=== PATIENT | male | born 1965 | race Caucasian/White ===

== ENCOUNTER → 2016-11-10 | Outpatient (CLI) | payer BC ==
--- NOTE | 2016-11-10 11:19 | US ---
EXAMINATION TYPE: US abdomen complete DATE OF EXAM: 11/10/2016 10:59 AM COMPARISON: NONE CLINICAL HISTORY: 51-year-old male RUQ Pain R10.11. TECHNIQUE: Multiple sonographic images of the abdomen were obtained. FINDINGS: Liver Length: 13.1 cm Gallbladder Wall: 0.2 cm CBD: 0.5 cm Spleen: 12.2 cm Right Kidney: 11.1 x 4.9 x 4.7 cm Left Kidney: 11.8 x 5.5 x 5.5 cm Pancreas: Suboptimal visualization of the pancreatic head and tail secondary to shadowing from bowel gas. The remainder of the pancreas is also limited and detailed assessment due to large body habitus. Liver: Normal size with homogeneous echotexture and no focal lesion. Gallbladder: No stones seen Evidence for sonographic Bustamante's sign: yes CBD: Within normal limits. Spleen: Within normal limits. Right Kidney: No hydronephrosis. There is a small midpole cyst measuring 1.4 mm. Left Kidney: No hydronephrosis. Upper IVC: Not well seen. Abd Aorta: Within normal limits IMPRESSION: Positive sonographic Bustamante's sign though without evidence for cholelithiasis or acute cholecystitis. Findings probably reflect referred pain. If further imaging evaluation of the gallbladder is desired , HIDA scan with ejection fraction can be considered.
[2016-11-10 11:29] LABS: Appearance,Urine Clear (Clear); Bilirubin,Urine 1+ (Negative); Glucose,Urine (UA) Negative (Negative); Ketones,Urine Trace (Negative); Leukocyte Esterase,Urine Trace (Negative); Mucus,Urine Occasional /hpf; Nitrite,Urine Negative (Negative); Particle Count 3400; Protein,Urine 1+ (Negative); Specific Gravity,Urine 1.021 (1.001-1.035); UA Billing (MACRO vs. MICRO) MICRO; WBC,Urine 1 /hpf (0-5)
[2016-11-10 11:36] LABS: Basophils # (A) 0.1 k/uL (0-0.2); Basophils % (A) 2 %; CH 30.1; CHCM 34.4; Eosinophils # (A) 0.3 k/uL (0-0.7); Eosinophils % (A) 3 %; HCT 54.8 % (39.0-53.0); HDW 2.73; HGB 18.2 gm/dL (13.0-17.5); Luc # (Auto) 0.15; Luc % (Auto) 2; Lymphocytes # (A) 1.8 k/uL (1.0-4.8); Lymphocytes % (A) 24 %; MCH 29.2 pg (25.0-35.0); MCHC 33.3 g/dL (31.0-37.0); MCV 87.9 fL (80.0-100.0); Monocytes # (A) 0.6 k/uL (0-1.0); Monocytes % (A) 7 %; Neutrophils # (A) 4.7 k/uL (1.3-7.7); Neutrophils % (A) 62 %; RBC 6.23 m/uL (4.30-5.90); RDW 13.7 % (11.5-15.5); WBC 7.6 k/uL (3.8-10.6); WBC (Perox) 7.64
[2016-11-10 11:48] LABS: ALT 42 U/L (21-72); AST 23 U/L (17-59); Alkaline Phosphatase 56 U/L (38-126); Amylase 47 U/L (30-110); Anion Gap 13 mmol/L; Blood Urea Nitrogen 11 mg/dL (9-20); Calcium 9.8 mg/dL (8.4-10.2); Carbon Dioxide 27 mmol/L (22-30); Chloride 103 mmol/L (98-107); Glucose 92 mg/dL (74-99); Non-African American GFR(MDRD) >60 (>60 ml/min/1.73 sqM); Potassium 4.2 mmol/L (3.5-5.1); Sodium 143 mmol/L (137-145); Total Bilirubin 1.3 mg/dL (0.2-1.3); Total Protein 7.1 g/dL (6.3-8.2)
== END | disposition home or self-care (01) ==
LOC: RADUSWWP 10:34
PROVIDERS: ATTEND Family Medicine
DX: R10.11 Right upper quadrant pain (principal)
CPT/HCPCS: 36415; 76700; 80053; 81001; 82150; 83690; 85025

== ENCOUNTER → 2016-11-20 | Outpatient (CLI) | payer BC ==
--- NOTE | 2016-11-20 21:57 | NM ---
EXAMINATION TYPE: NM hepatobiliary w EF DATE OF EXAM: 11/20/2016 5:10 PM COMPARISON: Correlation ultrasound 11/10/2016 HISTORY: 51 year-old male right upper quadrant pain TECHNIQUE: After the intravenous administration of 5.2 mCi Tc 99m Mebrofenin hepatobiliary scintigrap hy is performed. Immediate images post injection. FINDINGS: There is satisfactory initial accumulation of tracer by the liver. The gallbladder is visualized wit hin 12 minutes. The small bowel activity is noted within 32 minutes. At one hour 8 ounces of oral e nsure plus is given to mimic CCK and gallbladder ejection fraction is calculated at 40 %, in the norm al range. Therefore there is no scintigraphic evidence of cholecystitis, common bile duct obstructio n, or biliary dyskinesia. IMPRESSION: Exam is within normal limits.
== END | disposition home or self-care (01) ==
LOC: RADNMMAIN 14:42
PROVIDERS: ATTEND Family Medicine
DX: R10.11 Right upper quadrant pain (principal)
CPT/HCPCS: 78226; A9537

== ENCOUNTER → 2016-12-25 | Outpatient (CLI) | payer BC ==
--- NOTE | 2016-12-25 13:56 | US ---
EXAMINATION TYPE: US scrotum with doppler. Grayscale and color Doppler Duplex imaging performed of jamel vides scrotum. DATE OF EXAM: 12/25/2016 12:21 PM COMPARISON: NONE CLINICAL HISTORY: Swelling N50.89. Right sided swelling x 4 days EXAM MEASUREMENTS: TESTICLES: Right Testicle: 3.3 x 2.2 x 1.7 cm Left Testicle: 2.7 x 2.1 x 1.8 cm EPIDIDYMIS HEAD: Right Epididymis: 1.0 cm, 0.4cm cyst seen Left Epididymis: 0.7 cm Doppler performed to assess for testicular vascularity; good bilateral color flow and waveforms are s een. There is no evidence of testicular torsion. Presence of hydroceles: no Presence of varicoceles: no TECHNOLOGIST IMPRESSION: Right epididymal cyst seen, otherwise appears wnl stat order was for appointment to be scheduled today, office stated it was not a hold and call. Vascular waveforms are present bilaterally within the testes. Testicular echotexture is homogenous an d symmetric. IMPRESSION: Testicular torsion is not evident. No intratesticular mass. Small epididymal cyst on the right.
== END | disposition home or self-care (01) ==
LOC: RADUSWWP 11:56
PROVIDERS: ATTEND Family Medicine
DX: N50.3 Cyst of epididymis (principal)
CPT/HCPCS: 76870; 93975

== ENCOUNTER → 2017-02-09 | Outpatient (CLI) | payer BC ==
--- NOTE | 2017-02-09 08:29 | MR ---
EXAMINATION TYPE: MR cervical spine wo con DATE OF EXAM: 02/09/2017 8:07 AM COMPARISON: NONE HISTORY: radiculopathy csp Multiplanar MultiSpin echo imaging of the cervical spine was performed. Comparison: none C2-C3: No evidence for degenerative disc disease. No disc bulge/herniation or protrusion. No Canal stenosis. Foramina are patent bilaterally. C3-C4: No evidence for degenerative disc disease. No disc bulge/herniation or protrusion. No Canal stenosis. Foramina are patent bilaterally. C4-C5: No evidence for degenerative disc disease. No disc bulge/herniation or protrusion. No Canal stenosis. Foramina are patent bilaterally. C5-C6: No evidence for degenerative disc disease. No disc bulge/herniation or protrusion. No Canal stenosis. Foramina are patent bilaterally. C6-C7: There is evidence of mild disc desiccation. Right paracentral small disc herniation is again n oted and is essentially unchanged. Previously noted ventral CORD contact has improved. Mild persisten t right foraminal encroachment. No evidence for central stenosis. C7-T1: No evidence for degenerative disc disease. No disc bulge/herniation or protrusion. No Canal stenosis. Foramina are patent bilaterally. Cervical segments are intact. There is normal alignment. Cervical spinal cord is of normal signal. Craniovertebral junction relationships are within normal limits. IMPRESSION: 1. Right paracentral small disc herniation is again noted and is essentially unchanged. Previously no debra ventral CORD contact has improved. Mild persistent right foraminal encroachment.
== END ==
LOC: RADMRIMAIN 07:38
PROVIDERS: ATTEND Internal Medicine Rheumatology
DX: M50.21 Other cervical disc displacement, high cervical region (principal)
CPT/HCPCS: 72141

== ENCOUNTER → 2017-03-05 | Outpatient (CLI) | payer BC ==
[2017-03-05 10:47] LABS: Basophils # (A) 0.1 k/uL (0-0.2); Basophils % (A) 1 %; CH 30.2; Eosinophils # (A) 0.2 k/uL (0-0.7); Eosinophils % (A) 3 %; HCT 54.4 % (39.0-53.0); HDW 2.66; HGB 18.1 gm/dL (13.0-17.5); Luc # (Auto) 0.12; Luc % (Auto) 2; Lymphocytes # (A) 1.9 k/uL (1.0-4.8); Lymphocytes % (A) 29 %; MCH 29.6 pg (25.0-35.0); MCHC 33.2 g/dL (31.0-37.0); Mean Platelet Volume 6.7; Monocytes # (A) 0.5 k/uL (0-1.0); Monocytes % (A) 7 %; Neutrophils # (A) 3.7 k/uL (1.3-7.7); Neutrophils % (A) 57 %; RBC 6.11 m/uL (4.30-5.90); RDW 13.4 % (11.5-15.5); WBC 6.5 k/uL (3.8-10.6); WBC (Perox) 6.75
[2017-03-05 12:19] LABS: ALT 31 U/L (21-72); AST 24 U/L (17-59); Alkaline Phosphatase 59 U/L (38-126); Anion Gap 9 mmol/L; Blood Urea Nitrogen 14 mg/dL (9-20); Calcium 9.5 mg/dL (8.4-10.2); Carbon Dioxide 27 mmol/L (22-30); Chloride 105 mmol/L (98-107); Cholesterol 163 mg/dL (<200); Glucose 89 mg/dL (74-99); HDL Cholesterol 38 mg/dL (40-60); Non-African American GFR(MDRD) 58 (>60 ml/min/1.73 sqM); Potassium 3.9 mmol/L (3.5-5.1); Sodium 141 mmol/L (137-145); Total Protein 6.9 g/dL (6.3-8.2); Triglycerides 102 mg/dL (<150)
[2017-03-05 12:49] LABS: Prostate Specific Antigen 0.71 ng/mL (0.00-4.00)
== END | disposition home or self-care (01) ==
LOC: LABWHC1 10:01
PROVIDERS: ATTEND Family Medicine
DX: F31.81 Bipolar II disorder (principal); E66.01 Morbid (severe) obesity due to excess calories; Z13.9 Encounter for screening, unspecified; E78.2 Mixed hyperlipidemia; I10 Essential (primary) hypertension
CPT/HCPCS: 36415; 80053; 80061; 80175; 84153; 85025

== ENCOUNTER → 2017-08-24 | Outpatient (CLI) | payer BC ==
--- NOTE | 2017-08-24 11:48 | CT ---
EXAMINATION TYPE: CT sinus wo con DATE OF EXAM: 08/24/2017 COMPARISON: CT-guided sinus and facial bones examinations dated 05/11/2014 HISTORY: Chronic sinusitis CT DLP: 590.10 mGycm. Automated Exposure Control for Dose Reduction was Utilized. TECHNIQUE: CT scan of the sinuses is performed without contrast, axial images are obtained, coronal r eformatted images are also reviewed. FINDINGS: Bilateral antrostomy defects are noted of the maxillary sinuses. Small middle nasal turbina te stephanie bullosa are nonocclusive. A 5 mm rounded polypoid mucosal retention cyst versus mucosal xenia yp is seen within the superior ethmoid sinuses on the right. 6 mm osteoma is present in the posterior right ethmoid sinuses. The paranasal sinuses including the frontal, ethmoid, sphenoid, and maxillary sinuses bilaterally are well-aerated without abnormal opacification. The ostiomeatal complexes are patent bilaterally on the coronal images as are the frontal recesses. Nasal septum is overall midline with rightward nasal bone deviation, possibly sequela of prior trauma as there appears to be an old fracture of the maxillary spine. Visualized portion of mastoid air cells show no abnormal opacification. The globes are intact bilate rally with scleral band on the left. IMPRESSION: 1. Postsurgical changes of the paranasal sinuses with patent surgically enlarged ostiomeatal complexe s and frontal recesses. 2. Small 5 mm right ethmoidal mucosal retention cyst versus polyp. 3. Slight rightward nasal bone deviation and old fracture of the maxillary spine. 4. Nonocclusive small middle nasal turbinate stephanie bullosa bilaterally.
== END | disposition home or self-care (01) ==
LOC: RADCTMAIN 11:15
PROVIDERS: ATTEND Nurse Practitioner Family
DX: J34.2 Deviated nasal septum (principal); Z87.81 Personal history of (healed) traumatic fracture; Z98.890 Other specified postprocedural states
CPT/HCPCS: 70486

== ENCOUNTER → 2018-09-21 | Outpatient (CLI) | payer BC ==
[2018-09-21 11:22] LABS: MCH 29.8 pg (25.0-35.0); MCHC 33.8 g/dL (31.0-37.0); MCV 88.2 fL (80.0-100.0); Mean Platelet Volume 6.8; Platelet Count 259 k/uL (150-450); RBC 6.51 m/uL (4.30-5.90); RDW 13.1 % (11.5-15.5); WBC 7.1 k/uL (3.8-10.6)
[2018-09-21 11:29] LABS: Appearance,Urine Clear (Clear); Bacteria,Urine Rare /hpf; Bilirubin,Urine Negative (Negative); Blood,Urine Negative (Negative); Color,Urine Yellow; Glucose,Urine (UA) Negative (Negative); Ketones,Urine Trace (Negative); Leukocyte Esterase,Urine Negative (Negative); Mucus,Urine Many /hpf; Nitrite,Urine Negative (Negative); Protein,Urine 1+ (Negative); RBC,Urine <1 /hpf (0-5); Specific Gravity,Urine 1.029 (1.001-1.035); WBC,Urine <1 /hpf (0-5)
[2018-09-21 11:58] LABS: HGB 19.4 gm/dL (13.0-17.5)
[2018-09-21 11:59] LABS: HCT 57.4 % (39.0-53.0)
[2018-09-21 17:44] LABS: Albumin 4.5 g/dL (3.80-4.90); Albumin/Globulin Ratio 2.5 (1.20-2.10); Anion Gap 7.1 mmol/L (4.00-12.00); Calcium 9.5 mg/dL (8.7-10.3); Carbon Dioxide 28.9 mmol/L (21.6-31.8); Globulin 1.8 g/dL (2.1-3.7); LDL Cholesterol,Calculated 109.2 mg/dL (0.0-131.0); Total Bilirubin 1.5 mg/dL (0.2-1.2); Total Protein 6.3 g/dL (6.2-8.2); VLDL Calculation 26.8 mg/dL (5.00-40.00)
== END | disposition home or self-care (01) ==
LOC: LABWHC1 10:10
PROVIDERS: ATTEND Family Medicine
DX: Z00.01 Encounter for general adult medical examination with abnormal findings (principal); R79.89 Other specified abnormal findings of blood chemistry
CPT/HCPCS: 36415; 80053; 80061; 81001; 84153; 84402; 84403; 85027

== ENCOUNTER → 2018-10-11 | Outpatient (CLI) | payer BC ==
[2018-10-11 17:36] LABS: Basophils # (A) 0.1 k/uL (0-0.2); Basophils % (A) 1 %; Eosinophils # (A) 0.3 k/uL (0-0.7); Eosinophils % (A) 4 %; HCT 53.4 % (39.0-53.0); HGB 18.4 gm/dL (13.0-17.5); Lymphocytes # (A) 2.4 k/uL (1.0-4.8); Lymphocytes % (A) 29 %; MCH 30.2 pg (25.0-35.0); MCHC 34.5 g/dL (31.0-37.0); MCV 87.5 fL (80.0-100.0); Mean Platelet Volume 6.6; Monocytes # (A) 0.6 k/uL (0-1.0); Monocytes % (A) 7 %; Neutrophils # (A) 4.9 k/uL (1.3-7.7); Neutrophils % (A) 58 %; Platelet Count 262 k/uL (150-450); RBC 6.11 m/uL (4.30-5.90); RDW 12.9 % (11.5-15.5); WBC 8.5 k/uL (3.8-10.6)
== END ==
LOC: LABWHC1 16:35
PROVIDERS: ATTEND Family Medicine
DX: D75.1 Secondary polycythemia (principal)
CPT/HCPCS: 36415; 85025

== ENCOUNTER → 2018-12-13 | Outpatient (CLI) | payer BC ==
[2018-12-13 17:20] LABS: HGB 18.7 gm/dL (13.0-17.5); MCH 29.8 pg (25.0-35.0); MCHC 33.8 g/dL (31.0-37.0); MCV 88.4 fL (80.0-100.0); Mean Platelet Volume 6.6; Platelet Count 289 k/uL (150-450); RBC 6.27 m/uL (4.30-5.90); RDW 13.9 % (11.5-15.5); WBC 10.8 k/uL (3.8-10.6)
[2018-12-13 17:22] LABS: HCT 55.4 % (39.0-53.0)
== END ==
LOC: LABWHC1 16:42
PROVIDERS: ATTEND Internal Medicine
DX: E29.1 Testicular hypofunction (principal)
CPT/HCPCS: 36415; 84402; 84403; 85027

== ENCOUNTER → 2019-04-02 | Outpatient (CLI) | payer BC ==
[2019-04-02 17:22] LABS: HCT 51.2 % (39.0-53.0); HGB 17.4 gm/dL (13.0-17.5); MCH 30.4 pg (25.0-35.0); MCHC 33.9 g/dL (31.0-37.0); MCV 89.5 fL (80.0-100.0); Mean Platelet Volume 6.7; Platelet Count 270 k/uL (150-450); RBC 5.72 m/uL (4.30-5.90); RDW 13.2 % (11.5-15.5); WBC 8.3 k/uL (3.8-10.6)
== END | disposition home or self-care (01) ==
LOC: LABWHC1 16:43
PROVIDERS: ATTEND Family Medicine
DX: R22.2 Localized swelling, mass and lump, trunk (principal)
CPT/HCPCS: 36415; 85027

== ENCOUNTER → 2019-05-09 | Outpatient (CLI) | payer BC ==
[2019-05-09 16:30] LABS: HCT 46.6 % (39.0-53.0); HGB 17.3 gm/dL (13.0-17.5); MCH 32.8 pg (25.0-35.0); MCHC 37.2 g/dL (31.0-37.0); MCV 88.3 fL (80.0-100.0); Mean Platelet Volume 6.7; Platelet Count 233 k/uL (150-450); RBC 5.28 m/uL (4.30-5.90); RDW 13.7 % (11.5-15.5); WBC 6.5 k/uL (3.8-10.6)
[2019-05-09 16:35] LABS: Magnesium 2.1 mg/dL (1.6-2.3); Potassium 4.2 mmol/L (3.5-5.1)
== END | disposition home or self-care (01) ==
LOC: LABPAT 15:46
PROVIDERS: ATTEND Internal Medicine Cardiovascular Disease
DX: Z01.812 Encounter for preprocedural laboratory examination (principal); I25.10 Atherosclerotic heart disease of native coronary artery without angina pectoris; R93.1 Abnormal findings on diagnostic imaging of heart and coronary circulation
CPT/HCPCS: 36415; 80051; 82565; 82947; 83735; 84520; 85027

== ENCOUNTER 2019-05-15 06:23 | Day surgery (SDC) | payer BC ==
[2019-05-12 14:51] VITALS: BMI 42.3
[2019-05-15] MEDS ORDERED: SODIUM CHLORIDE 0.9% 1,000 ML IV SCH ×2 (06:30→11:15)
[2019-05-15] MEDS ORDERED: ATORVASTATIN 80 MG TAB PO STA (06:44)
[2019-05-15] MEDS ORDERED: ASPIRIN 325 MG TAB PO STA (06:44)
[2019-05-15] MEDS ORDERED: NITROGLYCERIN SL TABS 0.4 MG TAB SUBLINGUAL PRN (06:44)
[2019-05-15] MEDS ORDERED: ALPRAZolam 0.5 MG TAB PO PRN (06:44)
[2019-05-15] MEDS ORDERED: SODIUM CHLORIDE 0.9% 1,000 ML in EMPTY BAG 1 BAG IV ONE (06:44)
[2019-05-15] MEDS ORDERED: ALPRAZolam 0.25 MG TAB PO PRN (06:44)
[2019-05-15 07:27] VITALS: PULSE 90; TEMP 98.7
[2019-05-15] MEDS ORDERED: fentaNYL (PF) 50 MCG/ML 2 ML AMP IV ONE (09:27)
[2019-05-15] MEDS ORDERED: MIDAZOLAM (PF) 2 MG/2 ML VIAL IVP ONE (09:27)
[2019-05-15] MEDS ORDERED: LIDOCAINE 1% INJ 10MG/ML (20 ML MDV) SQ ONE (09:29)
[2019-05-15] MEDS ORDERED: IOPAMIDOL-370 125ML BTL INJ ONE (09:51)
--- NOTE | 2019-05-15 10:36 | CC ---
CARDIAC CATHETERIZATION REPORT INDICATION: Abnormal stress test. This is a 54-year-old gentleman with multiple coronary risk factors including hypertension, dyslipidemia and strong family history of coronary artery disease, who initially presented to me because of calcification noted in his coronary arteries and a CAT scan. He underwent a stress test that showed ischemia in LAD distribution and was advised to undergo cardiac catheterization. He had been explained of risks, benefits and alternatives understood and accepted. PROCEDURE NOTE: After obtaining informed consent, left heart catheterization and coronary angiogram were performed via the right femoral artery using standard Flynn catheters. Patient tolerated the procedure well without any obvious immediate complications. A femoral angiogram was performed and Angio-Seal was deployed for hemostasis. FINDINGS: HEMODYNAMICS: Left ventricular end-diastolic pressure is 16-18 mm. There is no significant gradient across the aortic valve. LEFT VENTRICULOGRAM: Left ventriculogram is not performed. ANGIOGRAPHIC DATA: LEFT MAIN CORONARY ARTERY: Left main coronary artery is a normal-sized vessel and is free of stenosis, appears calcified, divides into circumflex coronary artery and left anterior descending coronary artery. Circumflex coronary artery and its branches are free of significant stenosis . LAD is subtotally occluded in its proximal part with delayed filling of the distal LAD. There is a stenotic lesion in the LAD as it reaches the apex. There are [id number] collaterals noted. Right coronary artery is a large dominant vessel, gives off extensive collaterals to the LAD. It has multiple areas of stenosis. There is a long segment of 99% stenosis in the proximal part. There is a focal 90% stenosis in the midportion and in the distal portion which is irregular and ectatic. CONCLUSION: Severe 2 vessel coronary artery disease as described above or with chronic occlusion of the proximal left anterior descending artery and chronic subtotal occlusion of the right coronary artery with extensive collaterals to the left anterior descending artery. The patient has moderate area of ischemia in the LAD distribution, moderate to large area of ischemia in LAD distribution. I am going to ask the cardiothoracic surgeon to evaluate the patient to advise on revascularization. If he does not have good targets, then will send him for catheter based revascularization. In the meantime, he will be treated with optimal medical therapy. I discussed these issues at length with the patient and his . MMODL / IJN: [id number] /
[2019-05-15] MEDS ORDERED: RX INFO: IV CONTRAST WAS GIVEN 1 EACH MISC MISCELLANE PRN (11:02)
[2019-05-15 11:21] VITALS: RESP 18
[2019-05-15 12:22] LABS: Basophils # (A) 0.1 k/uL (0-0.2); Basophils % (A) 2 %; Eosinophils # (A) 0.2 k/uL (0-0.7); Eosinophils % (A) 3 %; HCT 47.4 % (39.0-53.0); Lymphocytes % (A) 30 %; MCH 29.7 pg (25.0-35.0); MCHC 33.6 g/dL (31.0-37.0); MCV 88.3 fL (80.0-100.0); Mean Platelet Volume 6.7; Monocytes # (A) 0.4 k/uL (0-1.0); Monocytes % (A) 6 %; Neutrophils # (A) 3.9 k/uL (1.3-7.7); Neutrophils % (A) 59 %; Platelet Count 234 k/uL (150-450); RBC 5.37 m/uL (4.30-5.90); RDW 12.5 % (11.5-15.5); WBC 6.7 k/uL (3.8-10.6)
[2019-05-15 12:28] LABS: Calcium 9.1 mg/dL (8.4-10.2); Magnesium 2.2 mg/dL (1.6-2.3); Potassium 3.8 mmol/L (3.5-5.1); Total Bilirubin 0.9 mg/dL (0.2-1.3); Total Protein 6.4 g/dL (6.3-8.2)
[2019-05-15 12:36] LABS: Partial Thromboplastin Time 26.7 sec (22.0-30.0); Prothrombin Time 10.3 sec (9.0-12.0)
--- NOTE | 2019-05-15 15:56 | US ---
EXAMINATION TYPE: US carotid duplex BILAT DATE OF EXAM: 05/15/2019 COMPARISON: NONE CLINICAL HISTORY: Pre-Op Cardiac Surgery. Pre op surgery EXAM MEASUREMENTS: RIGHT: Peak Systolic Velocity (PSV) cm/sec ----- Right CCA: 59.9 ----- Right ICA: 79.4 ----- Right ECA: 91.2 ICA/CCA ratio: 1.3 RIGHT: End Diastole cm/sec ----- Right CCA: 16.8 ----- Right ICA: 23.3 ----- Right ECA: 9.0 LEFT: Peak Systolic Velocity (PSV) cm/sec ----- Left CCA: 82.0 ----- Left ICA: 69.0 ----- Left ECA: 84.6 ICA/CCA ratio: 0.8 LEFT: End Diastole cm/sec ----- Left CCA: 19.4 ----- Left ICA: 18.1 ----- Left ECA: 10.6 VERTEBRALS (direction of flow): Right Vertebral: Antegrade Left Vertebral: Antegrade Rhythm: Normal IMPRESSION: 1. No significant hemodynamic stenosis as visualized. Atherosclerotic changes noted. Criteria for Assigning % of Stenosis / Diameter reduction (Estimation based on the indirect measurements of the internal carotid artery velocities (ICA PSV). 1. Normal (no stenosis)=ICA PSV < 125 cm/s: ratio < 2.0: ICA EDV<40 cm/s. 2. Less than 50% stenosis=ICA PSV < 125 cm/s: ratio < 2.0: ICA EDV<40 cm/s. 3. 50 to 69% stenosis=ICA PSV of 125 to 230 cm/s: ration 2.0 ? 4.0: ICA EDV 40-100 cm/s. 4. Greater than 70% stenosis to near occlusion= ICA PSV > 230 cm/s: ratio > 4.0: ICA EDV > 100 cm/s. 5. Near occlusion= ICA PSV velocities may be low or undetectable: variable ratio and ICA EDV. 6. Total occlusion=unable to detect flow.
--- NOTE | 2019-05-15 16:00 | XR ---
EXAMINATION TYPE: XR chest 2V DATE OF EXAM: 05/15/2019 COMPARISON: NONE TECHNIQUE: PA and lateral views submitted. HISTORY: Presurgical FINDINGS: The lungs are clear and there is no pneumothorax, pleural effusion, or focal pneumonia. Heart size is mildly prominent. No overt failure. Arthropathy of the shoulders. Hypertrophic and degenerative ch sharad of the spine. No overt failure. IMPRESSION: 1. No acute process.
[2019-05-15 16:08] LABS: Appearance,Urine Clear (Clear); Bilirubin,Urine Negative (Negative); Blood,Urine Negative (Negative); Color,Urine Light Yellow; Glucose,Urine (UA) Negative (Negative); Ketones,Urine Negative (Negative); Leukocyte Esterase,Urine Negative (Negative); Nitrite,Urine Negative (Negative); Protein,Urine Negative (Negative); Specific Gravity,Urine 1.005 (1.001-1.035); Urobilinogen,Urine <2.0 mg/dL (<2.0)
--- NOTE | 2019-05-15 16:14 | P.GSCN ---
History of Present Illness Consult date: 05/15/19 Reason for Consult: Coronary artery disease, surgical revascularization recommendations Requesting physician: Sloomon Cortez History of present illness: This is a 54-year-old gentleman who follows on an outpatient basis with Dr. Greco. He has a previous medical history of hypertension, hyperlipidemia, obstructive sleep apnea with home CPAP use, bipolar/depression, morbid obesity, fibromyalgia, and family history of premature coronary artery disease with his father having a myocardial infarction at 42 years old. Apparently he had been experiencing some right lateral wall chest discomfort without any other ag gravating or alleviating symptoms. He presented to his primary care physician's office who referred him for a computed tomography scan of the chest. That CT scan demonstrated calcification in the coronary arteries and the patient was then referred to Dr. Cortez from [facility]. He underwent stress testing which was abnormal and was recommended to have a heart catheterization which was completed today and which demonstrated severe double vessel coronary artery disease with subtotal occlusion in the proximal LAD and 99% stenosis in the proximal RCA with focal 90% stenosis in the midportion of the RCA. Dr. Braxton from cardiothoracic surgery was consulted regarding surgical revascul arization recommendations. Review of Systems Review of systems was completed and was negative except as noted. - Cardiovascular Reports as per HPI, Reports chest pain Past Medical History Past Medical History: Fibromyalgia, GERD/Reflux, Hypertension, Osteoarthritis (OA), Sleep Apnea/CPAP/BIPAP Additional Past Medical History / Comment(s): HX PANCREATITIS (20 YRS AGO), USES C-PAP MACHINE, ENVIRONMENTAL ALLERGIES History of Any Multi-Drug Resistant Organisms: None Reported Additional Past Surgical History / Comment(s): SINUS SURGERY X4, LEFT DETACHED RETINA, ACHILLES SURGERY. Past Anesthesia/Blood Transfusion Reactions: No Reported Reaction, Motion Sickness Past Psychological History: Anxiety, Bipolar, Depression Smoking Status: Never smoker Past Alcohol Use History: None Reported Past Drug Use History: None Reported - Past Family History Mother Family Medical History: Cancer Father Family Medical History: Cancer, Coronary Artery Disease (CAD), Myocardial Infarction (AR) Additional Family Medical History / Comment(s): Father with myocardial infarction at 42 years old Medications and Allergies Home Medications Medication Instructions Recorded Confirmed Type ALPRAZolam [Xanax] 0.5 mg PO DAILY PRN 05/12/19 05/12/19 History Aspirin [Adult Low Dose Aspirin EC] 81 mg PO DAILY 05/12/19 05/15/19 History Cholecalciferol (Vitamin D3) 5,000 unit PO DAILY 05/12/19 05/12/19 History [Vitamin D3] Cyanocobalamin (Vitamin B-12) 1,000 mcg PO DAILY 05/12/19 05/12/19 History [Vitamin B-12] Desvenlafaxine Succinate [Pristiq] 50 mg PO DAILY 05/12/19 05/12/19 History Etodolac [Lodine] 400 mg PO DAILY 05/12/19 05/15/19 History Fexofenadine HCl [Michelle Allergy] 180 mg PO DAILY 05/12/19 05/12/19 History Fluticasone Nasal [place] [Flonase 2 spr EA NOSTRIL DAILY 05/12/19 05/12/19 History Nasal [place]] Gabapentin [Neurontin] 300 mg PO QID 05/12/19 05/12/19 History Hydrochlorothiazide [Hydrodiuril] 12.5 mg PO DAILY 05/12/19 05/12/19 History Lansoprazole [Prevacid] 30 mg PO DAILY 05/12/19 05/12/19 History Lisinopril 20 mg PO HS 05/12/19 05/12/19 History Montelukast [Singulair] 10 mg PO DAILY 05/12/19 05/12/19 History Randle-3 Fatty Acids [Randle-3] 1,000 mg PO DAILY 05/12/19 05/12/19 History QUEtiapine [SEROquel] 25 mg PO HS 05/12/19 05/12/19 History Ranitidine HCl [Zantac] 150 mg PO BID 05/12/19 05/12/19 History Simvastatin [Zocor] 40 mg PO HS 05/12/19 05/12/19 History Tamsulosin HCl [Flomax] 0.4 mg PO DAILY 05/12/19 05/12/19 History Vitamin E (Dl,Tocopheryl Acet) 400 unit PO HS 05/12/19 05/12/19 History [Vitamin E] amLODIPine [Norvasc] 5 mg PO DAILY 05/12/19 05/12/19 History lamoTRIgine [LaMICtal] 200 mg PO DAILY 05/12/19 05/12/19 History Allergies Allergy/AdvReac Type Severity Reaction Status Date / Time No Known Allergies Allergy Verified 05/12/19 14:26 Surgical - Exam Vital Signs Temp Pulse Resp BP Pulse Ox 98.7 F 90 20 117/63 93 L 05/15/19 07:25 05/15/19 07:25 05/15/19 07:25 05/15/19 07:25 05/15/19 07:25 - General well developed, well nourished, no distress, no pain, obese - Eyes PERRL, normal ocular movement - ENT no hearing loss - Neck no masses, no bruits, trachea midline - Respiratory Lungs sounds clear bilaterally. Respirations even, nonlabored. Currently on room air with oxygen saturation 97%. No chest wall deformities although patient is morbidly obese. No clubbing or cyanosis. - Cardiovascular S1, S2 present. Regular rate and rhythm, sinus rhythm on telemetry. Palpable peripheral pulses bilaterally. No edema present. No calf pain or tenderness noted. No varicosities noted. Negative left radial Murphy's test. - Abdomen Abdomen: soft, non tender, bowel sounds - Genitourinary Deferred - Rectum Deferred - Integumentary Skin is warm and dry with evidence of good perfusion. Right femoral artery heart catheterization site soft, nontender, no drainage. - Neurologic normal coordination, normal sensation - Musculoskeletal normal posture - Psychiatric oriented to time, oriented to person, oriented to place, speech is normal, memory intact Results - Labs 05/15/19 11:45 05/15/19 11:45 Abnormal Lab Results - Last 24 Hours (Table) 05/15/19 Range/Units 11:45 BUN 22 H (9-20) mg/dL HDL Cholesterol 32 L (40-60) mg/dL Diabetes panel 05/15/19 Range/Units 11:45 Sodium 140 (137-145) mmol/L Potassium 3.8 (3.5-5.1) mmol/L Chloride 105 (98-107) mmol/L Carbon Dioxide 27 (22-30) mmol/L BUN 22 H (9-20) mg/dL Creatinine 1.22 (0.66-1.25) mg/dL Glucose 97 (74-99) mg/dL Calcium 9.1 (8.4-10.2) mg/dL AST 25 (17-59) U/L ALT 30 (21-72) U/L Alkaline Phosphatase 62 (38-126) U/L Total Protein 6.4 (6.3-8.2) g/dL Albumin 4.0 (3.5-5.0) g/dL Triglycerides 147 (<150) mg/dL HDL Cholesterol 32 L (40-60) mg/dL Thyroid panel 05/15/19 Range/Units 11:45 TSH 1.110 (0.465-4.680) mIU/L Calcium panel 05/15/19 Range/Units 11:45 Calcium 9.1 (8.4-10.2) mg/dL Albumin 4.0 (3.5-5.0) g/dL Pituitary panel 05/15/19 Range/Units 11:45 Sodium 140 (137-145) mmol/L Potassium 3.8 (3.5-5.1) mmol/L Chloride 105 (98-107) mmol/L Carbon Dioxide 27 (22-30) mmol/L BUN 22 H (9-20) mg/dL Creatinine 1.22 (0.66-1.25) mg/dL Glucose 97 (74-99) mg/dL Calcium 9.1 (8.4-10.2) mg/dL TSH 1.110 (0.465-4.680) mIU/L Adrenal panel 05/15/19 Range/Units 11:45 Sodium 140 (137-145) mmol/L Potassium 3.8 (3.5-5.1) mmol/L Chloride 105 (98-107) mmol/L Carbon Dioxide 27 (22-30) mmol/L BUN 22 H (9-20) mg/dL Creatinine 1.22 (0.66-1.25) mg/dL Glucose 97 (74-99) mg/dL Calcium 9.1 (8.4-10.2) mg/dL Total Bilirubin 0.9 (0.2-1.3) mg/dL AST 25 (17-59) U/L ALT 30 (21-72) U/L Alkaline Phosphatase 62 (38-126) U/L Total Protein 6.4 (6.3-8.2) g/dL Albumin 4.0 (3.5-5.0) g/dL - Imaging Additional studies: Heart catheterization films were reviewed with Dr. Braxton Assessment and Plan Assessment: 1. Severe double vessel coronary artery disease 2. Hypertension 3. Hyperlipidemia 4. Obstructive sleep apnea with home CPAP use 5. Bipolar/depression 6. Morbid obesity 7. Fibromyalgia 8. Family history of premature coronary artery disease Plan: The patient was seen and examined at the bedside in the extended stay unit with Dr. Braxton. Heart catheterization films were reviewed with Dr. Braxton. Our recommendation is for surgical myocardial revascularization. The usual perioperative course was discussed in detail with the patient and his , risks and benefits were reviewed, all questions were answered, and the patient consented to surgery. Preoperative testing was ordered. STS risk score will be calculated and discussed with the patient. We recommend maximizing medical therapy with aspirin, statin, beta blockers. Our plan is for off-pump coronary artery bypass graft surgery with left internal mammary artery and left radial artery harvesting, intraoperative transesophageal echocardiogram, and possible sternal plating on 05/28/2019, pending the outcome of preoperative testing. This was agreed upon with the patient and his . Our contact information was given to the patient and his should they have any questions prior to surgery. Thank you Dr. Cortez for this consult. We look forward to working with you in the care of your patient. Time with Patient: Greater than 30
[2019-05-15 16:34] VITALS: BP 124/65
[2019-05-15 18:02] LABS: Hemoglobin A1C 5.4 % (4.0-6.0)
--- NOTE | 2019-05-16 10:46 | ECHOF ---
Referral Reason:preop cabg, assess valves, LV MEASUREMENTS -------- HEIGHT: 170.2 cm WEIGHT: 122.5 kg BP: 138/90 RVIDd: 2.8 cm (< 3.3) IVSd: 1.3 cm (0.6 - 1.1) LVIDd: 5.3 cm (3.9 - 5.3) LVPWd: 1.2 cm (0.6 - 1.1) IVSs: 1.9 cm LVIDs: 3.3 cm LVPWs: 2.1 cm LA Diam: 3.3 cm (2.7 - 3.8) LAESV Index (A-L): 24.97 ml/m Ao Diam: 3.6 cm (2.0 - 3.7) AV Cusp: 2.5 cm (1.5 - 2.6) MV EXCURSION: 20.477 mm (> 18.000) MV EF SLOPE: 108 mm/s (70 - 150) EPSS: 0.3 cm MV E Kimani: 0.61 m/s MV DecT: 231 ms MV A Kimani: 0.58 m/s MV E/A Ratio: 1.05 FINDINGS -------- Sinus rhythm. This was a technically adequate study. The left ventricular size is normal. There is mild concentric left ventricular hypertrophy. Overa ll left ventricular systolic function is normal with, an EF between 55 - 60 %. The right ventricle is normal in size. Normal LA size by volume 22+/-6 ml/m2. The right atrium is normal in size. 5 ml of Lumason was utilized for enhancement of images. Interatrial and interventricular septum intact. The aortic valve is trileaflet and appears structurally normal. The mitral valve is normal. The tricuspid valve appears structurally normal. Trace/mild (physiologic) pulmonic regurgitation. The aortic root size is normal. Normal inferior vena cava with normal inspiratory collapse consistent with estimated right atrial pre ssure of 5 mmHg. There is no pericardial effusion. CONCLUSIONS -------- 1. Sinus rhythm. 2. This was a technically adequate study. 3. The left ventricular size is normal. 4. There is mild concentric left ventricular hypertrophy. 5. The right ventricle is normal in size. 6. Normal LA size by volume 22+/-6 ml/m2. 7. The right atrium is normal in size. 8. 5 ml of Lumason was utilized for enhancement of images. 9. Interatrial and interventricular septum intact. 10. The aortic valve is trileaflet and appears structurally normal. 11. The mitral valve is normal. 12. The tricuspid valve appears structurally normal. 13. Trace/mild (physiologic) pulmonic regurgitation. 14. The aortic root size is normal. 15. Normal inferior vena cava with normal inspiratory collapse consistent with estimated right atrial pressure of 5 mmHg. 16. There is no pericardial effusion. FULL DECATOR OPERATOR: Radha Ribera RDCS
--- NOTE | 2019-05-21 10:00 | P.ARTDOP ---
Arterial Doppler Bilateral radial artery studies: Date of study: 05/15/2019 Reasons for study: Preop CABG Doppler assessment shows no significant right to left or segmental pressure changes Digital pressors mammography with radial artery compression, shows no significant pressure change. On imaging the right radial is between 2.3 x 2.5 and 5.6 x 4.3 mm The left radial is between 2.8 x 2.3 and 5.9 x 5.6 mm. Usable bilateral radial arteries.
--- NOTE | 2019-05-21 10:02 | P.VSCSTY ---
Greater Saphenous Vein Mapping This is bilateral lower extremity greater saphenous vein mapping. Date of service: 05/15/2019 Vein quality and ultrasound appearance: No endoluminal thrombus or wall changes are seen. Vein size groin right : 8.3 x 5.8 groin left: 5.9 x 5.4 High thigh right: 2.0 x 1.9 high thigh left: 5.0 x 3.5 Mid thigh right: 3.2 x 3.1 mid thigh left: 2.9 x 2.7 Above-knee right: 4.7 x 2.7 above-knee left: 4.0 x 2.3 Below knee right: 1.6 x 1.7 below-knee left: 2.3 x 2.3 Mid calf right: 2.0 x 2.0 mid calf left: 3.6 x 2.0 Ankle right: 3.5 by 2.3 ankle left: 3.6 x 2.4 Impression: Usable bilateral greater saphenous veins. Some small areas on the right. Left is more consistent..
== END 2019-05-15 16:00 | disposition home or self-care (01) ==
LOC: CATHCVL 06:23
PROVIDERS: ATTEND Internal Medicine Cardiovascular Disease
DX: I25.10 Atherosclerotic heart disease of native coronary artery without angina pectoris (principal); I10 Essential (primary) hypertension; E78.5 Hyperlipidemia, unspecified; Z82.49 Family history of ischemic heart disease and other diseases of the circulatory system; K21.9 Gastro-esophageal reflux disease without esophagitis; F41.9 Anxiety disorder, unspecified; F31.9 Bipolar disorder, unspecified; M79.7 Fibromyalgia; M19.90 Unspecified osteoarthritis, unspecified site; E66.01 Morbid (severe) obesity due to excess calories; Z68.41 Body mass index [BMI] 40.0-44.9, adult; G47.33 Obstructive sleep apnea (adult) (pediatric); Z99.89 Dependence on other enabling machines and devices; Z79.82 Long term (current) use of aspirin; Z79.899 Other long term (current) drug therapy; Z80.9 Family history of malignant neoplasm, unspecified
CPT/HCPCS: 93458; 94150; 93306; 80061; 80053; 80074; 84443; 83735; 85025; 85610; 85730; 81003; 87070; 87086; 83036; 71046; 93930; 93970; 93923; 93880; C1760; C1894; C1769; J2001; J3010; Q9950; Q9967; J2250

== ENCOUNTER → 2019-05-24 | Outpatient (CLI) | payer BC ==
[2019-05-24 11:35] LABS: HCT 47.5 % (39.0-53.0); HGB 16.3 gm/dL (13.0-17.5); MCHC 34.3 g/dL (31.0-37.0); MCV 87.3 fL (80.0-100.0); Mean Platelet Volume 6.5; Platelet Count 310 k/uL (150-450); RBC 5.45 m/uL (4.30-5.90); RDW 12.5 % (11.5-15.5); WBC 6.2 k/uL (3.8-10.6)
[2019-05-24 11:40] LABS: INR 0.9 (<1.2); Partial Thromboplastin Time 27.9 sec (22.0-30.0); Prothrombin Time 10.1 sec (9.0-12.0)
[2019-05-24 16:29] LABS: African American GFR (CKD) 71.2 (60.0-200.0); Albumin 4.5 g/dL (3.80-4.90); Albumin/Globulin Ratio 2.5 (1.60-3.17); Anion Gap 11.5 mmol/L (4.00-12.00); BUN/Creat Ratio 16.92 Ratio (12.00-20.00); Calcium 9.6 mg/dL (8.7-10.3); Carbon Dioxide 24.5 mmol/L (21.6-31.8); Globulin 1.8 g/dL (1.6-3.3); Total Bilirubin 1.1 mg/dL (0.2-1.2); Total Protein 6.3 g/dL (6.2-8.2)
== END | disposition home or self-care (01) ==
LOC: LABWHC1 10:55
PROVIDERS: ATTEND Thoracic Surgery (Cardiothoracic Vascular Surgery)
DX: I25.10 Atherosclerotic heart disease of native coronary artery without angina pectoris (principal)
CPT/HCPCS: 36415; 80053; 85027; 85610; 85730

== ENCOUNTER 2019-05-28 05:34 | Inpatient (IN) | payer BC ==
--- NOTE | 2019-05-27 16:31 | P.PN ---
Progress Note - Text Progress Note Date: 05/27/19 STS risk was calculated and discussed with the patient by Dr. Braxton.
[~2019-05-28 05:34] MED LIST: ALBUMIN HUMAN 25% 50 ML IV ONE; ALBUMIN HUMAN 5% 500 ML IVPB ONE; ASPIRIN 325 MG TAB PO ONE; ATORVASTATIN 10 MG TAB PO ONE; CALCIUM CHLORIDE 100 MG/ML 10 ML SYRINGE IV ONE; CHLORHEXIDINE GLUCONATE 15 ML CUP MUCOUS MEM ONE; CLEVIDIPINE BUTYRATE 25 MG in EMPTY BAG 1 BAG IV ONE; DILTIAZEM 125 MG in SODIUM CHLORIDE 0.9% 100 ML IV ONE; HEPARIN SODIUM 1,000 UN/ML (10ML VL) IV ONE; HEPARIN SODIUM,PORCINE 5,000 UNIT in SODIUM CHLORIDE 0.9% 500 ML 500 ML IV ONE; INSULIN REGULAR 100 UNIT in SODIUM CHLORIDE 0.9% 100 ML IV ONE; LACTATED RINGERS 1,000 ML IV ONE; MAGNESIUM SULFATE MG 500 MG/ML IV ONE; MANNITOL 25% 12.5 GM/50 ML VIAL IV ONE; METOPROLOL TARTRATE 12.5 MG TAB PO ONE; NITROGLYCERIN-D5W PMX 25 MG/250 ML BTL IV ONE; NOREPINEPHRINE 4 MG in SODIUM CHLORIDE 0.9% 250 ML IV ONE; PAPAVERINE 360 MG in SODIUM CHLORIDE 0.9% 90 ML IV ONE; PHENYLEPHRINE 10 MG/ML VIAL IV ONE; PHENYLEPHRINE 40 MG in SODIUM CHLORIDE 0.9% 250 ML IV ONE; PROPOFOL 1,000 MG/100 ML VIAL IV ONE; PROTAMINE SULFATE 10 MG/ML 25 ML VIAL IV ONE; PROTAMINE SULFATE 250 MG in EMPTY BAG 1 BAG IV ONE; SODIUM BICARB 8.4% 50 ML SYR (1 MEQ/ML) IV ONE; SODIUM CHLORIDE 0.9% 1,000 ML IV ONE; TRANEXAMIC ACID 2,000 MG in SODIUM CHLORIDE 0.9% 80 ML IV ONE; ceFAZolin 1,000 MG in SODIUM CHLORIDE 0.9% IRRIGATIO 1,000 ML IRRIGATION ONE; ceFAZolin 2,000 MG in SODIUM CHLORIDE 0.9% 30 ML IVPB ONE; ceFAZolin 3 GM in SODIUM CHLORIDE 0.9% 30 ML IVPB ONE
[2019-05-28] MEDS ORDERED: TRANEXAMIC ACID 2,000 MG in SODIUM CHLORIDE 0.9% 80 ML IV ONE (06:00)
[2019-05-28] MEDS ORDERED: LIDOCAINE 1% 20 ML VIAL (10MG/ML) FOR IV START INTRADERMA ONE (06:20)
[2019-05-28 06:37] LABS: Glucose,Whole Blood 101 mg/dL (75-99)
[2019-05-28] MEDS ORDERED: DILTIAZEM 125 MG in SODIUM CHLORIDE 0.9% 100 ML IV ONE (08:00)
[2019-05-28] MEDS ORDERED: HEPARIN SODIUM,PORCINE 10,000 UNIT/ML 1 ML VIAL ONE (08:38)
[2019-05-28] MEDS ORDERED: SUCCINYLCHOLINE CHLORIDE 100 MG/5 ML SYR IV ONE (08:38)
[2019-05-28] MEDS ORDERED: ePHEDrine SULFATE/0.9% NACL/PF 50 MG/5 ML SYRINGE IV ONE (08:38)
[2019-05-28] MEDS ORDERED: PROPOFOL 10 MG/ML 20 ML VIAL IV ONE (08:38)
[2019-05-28] MEDS ORDERED: PROTAMINE SULFATE 10 MG/ML 5 ML VIAL IV ONE (08:38)
[2019-05-28] MEDS ORDERED: fentaNYL (PF) 50 MCG/ML 50 ML VIAL ONE (08:38)
[2019-05-28] MEDS ORDERED: MIDAZOLAM 2 MG/2 ML VIAL ONE (08:38)
[2019-05-28] MEDS ORDERED: NITROGLYCERIN-D5W PMX 50 MG/250 ML BOTTLE IV ONE (08:38)
[2019-05-28] MEDS ORDERED: SODIUM CHLORIDE 0.9% IRRIG 1,000 ML BTL IRRIGATION ONE (08:38)
[2019-05-28] MEDS ORDERED: VECURONIUM 10 MG VIAL IV ONE (08:38)
[2019-05-28] MEDS ORDERED: PHENYLEPHRINE-0.9% NACL SYG 1 MG/10 ML SYRINGE ONE (08:38)
[2019-05-28] MEDS ORDERED: fentaNYL (PF) 50 MCG/ML 2 ML AMP ONE (08:38)
[2019-05-28] MEDS ORDERED: ALBUMIN HUMAN 5% (25gm) 500 ML VIAL IVPB ONE (08:38)
[2019-05-28 10:00] LABS: ABG Base Excess 0.3 mmol/L; ABG Glucose Whole Blood 108 mg/dL (75-99); ABG HCO3 26 mmol/L (21-25); ABG Hematocrit 44 % (34.0-46.0); ABG Ionized Calcium 4.7 mg/dL (4.5-5.3); ABG Lactic Acid Whole Blood 0.8 mmol/L (0.5-1.6); ABG Oxygen Saturation 99.9 % (94-97); ABG PCO2 43 mmHg (35-45); ABG PH 7.39 (7.35-7.45); ABG PO2 410 mmHg (83-108); ABG Potassium Whole Blood 4.3 mmol/L (3.4-4.5); ABG Sodium Whole Blood 140 mmol/L (135-146); ABG TCO2 27 mmol/L (19-24)
[2019-05-28] MEDS ORDERED: PAPAVERINE 360 MG in SODIUM CHLORIDE 0.9% 90 ML IV ONE (10:49)
[2019-05-28] MEDS ORDERED: SODIUM CHLORIDE 0.9% 500 ML 500 ML with HEPARIN SODIUM,PORCINE 5,000 UNIT IV ONE ×2 (10:49)
[2019-05-28] MEDS ORDERED: ceFAZolin 1,000 MG in SODIUM CHLORIDE 0.9% 1,000 ML IRRIGATION ONE (10:50)
[2019-05-28 11:46] LABS: ABG Base Excess -0.7 mmol/L; ABG Glucose Whole Blood 119 mg/dL (75-99); ABG HCO3 24 mmol/L (21-25); ABG Hematocrit 41 % (34.0-46.0); ABG Ionized Calcium 4.5 mg/dL (4.5-5.3); ABG Lactic Acid Whole Blood 0.7 mmol/L (0.5-1.6); ABG Oxygen Saturation 99.9 % (94-97); ABG PCO2 38 mmHg (35-45); ABG PH 7.41 (7.35-7.45); ABG PO2 206 mmHg (83-108); ABG Potassium Whole Blood 4.1 mmol/L (3.4-4.5); ABG Sodium Whole Blood 140 mmol/L (135-146); ABG TCO2 25 mmol/L (19-24)
[2019-05-28 12:16] LABS: ABG Base Excess -1.1 mmol/L; ABG Glucose Whole Blood 119 mg/dL (75-99); ABG HCO3 24 mmol/L (21-25); ABG Hematocrit 40 % (34.0-46.0); ABG Ionized Calcium 4.5 mg/dL (4.5-5.3); ABG Lactic Acid Whole Blood 0.9 mmol/L (0.5-1.6); ABG Oxygen Saturation 99.6 % (94-97); ABG PCO2 42 mmHg (35-45); ABG PH 7.37 (7.35-7.45); ABG PO2 209 mmHg (83-108); ABG Potassium Whole Blood 4.1 mmol/L (3.4-4.5); ABG Sodium Whole Blood 141 mmol/L (135-146); ABG TCO2 26 mmol/L (19-24)
[2019-05-28 13:06] LABS: ABG Base Excess -1.4 mmol/L; ABG Glucose Whole Blood 120 mg/dL (75-99); ABG HCO3 24 mmol/L (21-25); ABG Hematocrit 40 % (34.0-46.0); ABG Ionized Calcium 4.5 mg/dL (4.5-5.3); ABG PCO2 41 mmHg (35-45); ABG PH 7.37 (7.35-7.45); ABG PO2 132 mmHg (83-108); ABG Potassium Whole Blood 3.8 mmol/L (3.4-4.5); ABG Sodium Whole Blood 140 mmol/L (135-146); ABG TCO2 25 mmol/L (19-24)
--- NOTE | 2019-05-28 13:48 | P.OP ---
Date of Procedure: 05/28/19 Preoperative Diagnosis: Coronary artery disease Postoperative Diagnosis: Same Procedure(s) Performed: Off-pump CABG 2 with STYLES to LAD and left radial artery graft to posterior descending coronary artery with Endo radial harvest and with WANDA by anesthesia Anesthesia: VILMA Surgeon: Afshin Braxton Marketing And Communications Officer #1: Endy Tovar Estimated Blood Loss (ml): 100 IV fluids (ml): 2,000 Urine output (ml): 500 Pathology: none sent Condition: stable Disposition: ICU Indications for Procedure: 54-year-old male presented with shortness of breath and chest pain. Stress test was positive. Found to have severe two-vessel coronary artery disease with complete occlusion of the LAD filling by both [id number] and right to right collaterals and severe disease in the right coronary artery system. Coronary bypass grafting was recommended by Dr. Cortez. Elective surgery was scheduled. Operative Findings: The patient was brought to the operating room, placed supine on the operating table, anesthetized and intubated. [place]-Michelle catheter to been placed via the right internal jugular approach. A right brachial arterial line had been placed. The anterior torso and lower extremities and left upper extremity were sterilely prepped and draped. The left radial artery was harvested with endovascular technique. Simultaneous sternotomy was performed and the left hemisternum was retracted upwards. The left internal mammary artery was harvested on a vascularized pedicle. This was an excellent conduit. The left pleural space was drained with a 32-[place] chest tube. Standard sternal retractor was placed and the pericardium was opened in the midline. The heart was exposed with pericardial sutures. The patient was systemically heparinized and ACT is maintained greater than 250 during grafting. Suction stabilization was used during distal anastomosis. STYLES to the LAD was constructed first. The LAD was stabilized and opened fairly proximally at the junction of the proximal and middle third. Here was a 1.75 mm vessel with significant back wall disease. The arteriotomy was extended slightly distally into a better section of the artery. STYLES was prepared appropriately and tunneled into the pericardial space. End to side anastomosis between the STYLES and the LAD was performed with 8-0 Prolene suture. After opening the STYLES blood flow was controlled with a 1.5 mm flow through. Upon completion of the anastomosis the flow through was removed effectively probing the proximal distal portion of the anastomosis. Suture was tied with good result and hemostasis and the inflow open. CHRIS pedicle was tacked surrounding epicardium with 60 silks. The inferior wall was exposed. The right coronary artery was heavily diseased and calcified and nongraftable. Posterior descending coronary artery was identified and dissected somewhat proximally into the epicardial fat in order to find a juicy segment for grafting. Was opened here and blood flow control the 1.5 mm flow through. It was a 1.75 mm vessel distally a more at a 2 mm vessel proximally. The radial artery had been prepared on the back table and was of excellent quality. The radial and was anastomosed to the PDA with running 7-0 Prolene suture. On completion anastomosis flow through was removed effectively probing the proximal distal portion anastomosis. Good backbleeding was noted into the radial artery. Good hemostasis of the anastomosis was noted. Heart was lowered in anatomic position. A heartstring was deployed in the mid ascending aorta. Proximal anastomosis was constructed with running 6-0 Prolene suture. On completion of the proximal anastomosis heartstring was removed. Suture was tied with good result and hemostasis. Inflow was open to the PDA. The graft was noted to lie beautifully and there was good hemostasis throughout. Heparin was reversed with protamine. Chest was irrigated with antibiotic solution. The mediastinum was drained with a 36-[place]aur[place] chest tube. After assuring good hemostasis sternum was closed with 4 sternal wires and 2 cable plates. An auxiliary plate was placed in the manubrium and a box plate in the mid sternal body. We again irrigated with antibiotic solution and closed with layers of Vicryl suture. Dry sterile dressings were applied and the patient was transferred to [facility] ICU in stable condition.
[2019-05-28 14:05] LABS: ABG Base Excess -0.4 mmol/L; ABG Glucose Whole Blood 119 mg/dL (75-99); ABG HCO3 25 mmol/L (21-25); ABG Hematocrit 42 % (34.0-46.0); ABG Ionized Calcium 4.6 mg/dL (4.5-5.3); ABG Lactic Acid Whole Blood 0.6 mmol/L (0.5-1.6); ABG Oxygen Saturation 99.7 % (94-97); ABG PCO2 44 mmHg (35-45); ABG PH 7.37 (7.35-7.45); ABG PO2 201 mmHg (83-108); ABG Potassium Whole Blood 4.1 mmol/L (3.4-4.5); ABG Sodium Whole Blood 141 mmol/L (135-146); ABG TCO2 26 mmol/L (19-24)
[2019-05-28] MEDS ORDERED: AMIODARONE 300 MG in DEXTROSE 5% IN WATER 250 ML IV PRN ×2 (14:19)
[2019-05-28] MEDS ORDERED: CLEVIDIPINE BUTYRATE 25 MG in EMPTY BAG 1 BAG IV SCH (14:19)
[2019-05-28] MEDS ORDERED: DILTIAZEM 125 MG in SODIUM CHLORIDE 0.9% 100 ML IV SCH (14:19)
[2019-05-28] MEDS ORDERED: BENZOCAINE/MENTHOL LOZENG 1 EACH LOZENGE MUCOUS MEM PRN (14:19)
[2019-05-28] MEDS ORDERED: Potassium Replacement Protocol 1 EACH MISC MISCELLANE PRN (14:19)
[2019-05-28] MEDS ORDERED: Phosphorus Replacement Protoco 1 EACH MISC MISCELLANE PRN (14:19)
[2019-05-28] MEDS ORDERED: LACTATED RINGERS 1,000 ML IV SCH (14:19)
[2019-05-28] MEDS ORDERED: AMIODARONE 360 MG in DEXTROSE 5% IN WATER 200 ML IV PRN ×2 (14:19)
[2019-05-28] MEDS ORDERED: ALBUMIN HUMAN 5% 250 ML in EMPTY BAG 1 BAG IVPB PRN (14:19)
[2019-05-28] MEDS ORDERED: ONDANSETRON 4 MG/2 ML VIAL IVP PRN (14:19)
[2019-05-28] MEDS ORDERED: PROPOFOL 1,000 MG in EMPTY BAG 1 BAG IV SCH (14:19)
[2019-05-28] MEDS ORDERED: CALCIUM GLUCONATE 2 GM in SODIUM CHLORIDE 0.9% 100 ML IVPB PRN (14:19)
[2019-05-28] MEDS ORDERED: DEXTROSE 5% IN WATER 100 ML with AMIODARONE 150 MG IV PRN (14:19)
[2019-05-28] MEDS ORDERED: METOCLOPRAMIDE 5 MG/ML 2 ML VIAL IVP PRN (14:19)
[2019-05-28] MEDS ORDERED: IPRATROPIUM-ALBUTEROL 3 ML NEB INHALATION PRN (14:19)
[2019-05-28] MEDS ORDERED: NITROGLYCERIN-D5W PMX 50 MG in DEXTROSE/WATER 1 250ML.BAG IV SCH (14:19)
[2019-05-28] MEDS ORDERED: Magnesium Replacement Protocol 1 EACH MISC MISCELLANE PRN (14:19)
[2019-05-28 14:27] LABS: Basophils # (A) 0.1 k/uL (0-0.2); Basophils % (A) 1 %; Eosinophils # (A) 0.2 k/uL (0-0.7); Eosinophils % (A) 1 %; HCT 38.3 % (39.0-53.0); Lymphocytes # (A) 1.5 k/uL (1.0-4.8); Lymphocytes % (A) 13 %; MCH 30.5 pg (25.0-35.0); MCHC 34.4 g/dL (31.0-37.0); MCV 88.7 fL (80.0-100.0); Mean Platelet Volume 7.5; Monocytes # (A) 0.4 k/uL (0-1.0); Monocytes % (A) 4 %; Neutrophils # (A) 9.4 k/uL (1.3-7.7); Neutrophils % (A) 81 %; Platelet Count 234 k/uL (150-450); RBC 4.31 m/uL (4.30-5.90); RDW 14.7 % (11.5-15.5); WBC 11.7 k/uL (3.8-10.6)
[2019-05-28 14:28] LABS: Glucose,Whole Blood 118 mg/dL (75-99)
[2019-05-28 14:35] LABS: ABG Base Excess -0.9 mmol/L; ABG HCO3 26 mmol/L (21-25); ABG Oxygen Saturation 99.1 % (94-97); ABG PCO2 53 mmHg (35-45); ABG PO2 203 mmHg (83-108); ABG TCO2 27 mmol/L (19-24); Allen Test Performed? Yes
[2019-05-28 14:37] LABS: Partial Thromboplastin Time 29.2 sec (22.0-30.0)
[2019-05-28 14:42] LABS: HGB 13.2 gm/dL (13.0-17.5)
--- NOTE | 2019-05-28 14:42 | P.CNPUL ---
History of Present Illness Consult date: 05/28/19 Chief complaint: Post thoracotomy, bypass surgery History of present illness: 54-year-old female patient who presented with shortness of breath and chest pain and the patient was found to have a positive stress test. Upon further investigation the patient was found to have severe two-vessel coronary artery disease with complete occlusion of the LAD and filling was from collaterals and the patient also had severe disease involving the right coronary artery system. Based on this, coronary artery bypass surgery was recommended and the patient underwent an off-pump 2 vessel bypass surgery with STYLES to LAD and radial artery graft to PDA. Estimated blood loss was 100 mL. The patient is currently in the intensive.. The patient is intubated on a mechanical ventilator. The patient is hemodynamically doing well. Pulmonary artery pressures are 34/24 mmHg. CVP is at 18. The patient's has a cardiac output of 4.2 and an index of 2.0. The patient a mechanical ventilator in assist control mode and the patient is currently at the rate of 12 with a tidal volume of 500 and FiO2 100% and a PEEP of 10. Because the pending for now. Chest x-ray shows cardiomegaly. The mediastinal chest tube and the left pleural chest tube are both in place. The patient is [place]-Michelle catheter in place. ET tube is in a good location and the patient is intubated by #8.5 ET tube. The patient has a pleural and a mediastinal chest tube. Output is minimal for now and there is no evidence of any air leak. The patient is producing adequate amount of urine output. The patient on 5 g the left of nitroglycerin drip and Cardizem drip at 5 mg an hour. All of the surgical incision dry clean and intact. The patient on propofol for sedation and is calm and comfortable. No other significant events over this surgery. The patient has obstructive sleep apnea. The patient utilizes a CPAP on outpatient basis. His preop FEV1 is 78% of predicted. Review of Systems ROS unobtainable: due to endotracheal tube Past Medical History Past Medical History: Fibromyalgia, GERD/Reflux, Hyperlipidemia, Hypertension, Osteoarthritis (OA), Sleep Apnea/CPAP/BIPAP Additional Past Medical History / Comment(s): Coronary artery disease, obstructive sleep apnea, hypertension, hyperlipidemia, fibromyalgia, obesity with a BMI of 42.3, remote history of pancreatitis, the patient is a CPAP user History of Any Multi-Drug Resistant Organisms: None Reported Past Surgical History: Heart Catheterization, Orthopedic Surgery Additional Past Surgical History / Comment(s): sinus surg. x4, repair left detached retina, achilles surg., recent heart cath. Past Anesthesia/Blood Transfusion Reactions: No Reported Reaction, Motion Sickness Past Psychological History: Anxiety, Bipolar, Depression Smoking Status: Never smoker Past Alcohol Use History: None Reported Past Drug Use History: None Reported - Past Family History Mother Family Medical History: Cancer Father Family Medical History: Cancer, Coronary Artery Disease (CAD), Myocardial Infarction (MT) Additional Family Medical History / Comment(s): Father with myocardial infarction at 42 years old Medications and Allergies Home Medications Medication Instructions Recorded Confirmed Type ALPRAZolam [Xanax] 0.5 mg PO DAILY PRN 05/12/19 05/28/19 History Aspirin [Adult Low Dose Aspirin EC] 81 mg PO DAILY 05/12/19 05/28/19 History Cholecalciferol (Vitamin D3) 5,000 unit PO DAILY 05/12/19 05/28/19 History [Vitamin D3] Cyanocobalamin (Vitamin B-12) 1,000 mcg PO DAILY 05/12/19 05/28/19 History [Vitamin B-12] Desvenlafaxine Succinate [Pristiq] 50 mg PO DAILY 05/12/19 05/28/19 History Fexofenadine HCl [Michelle Allergy] 180 mg PO DAILY 05/12/19 05/28/19 History Fluticasone Nasal [place] [Flonase 2 spr EA NOSTRIL DAILY 05/12/19 05/28/19 History Nasal [place]] Gabapentin [Neurontin] 300 mg PO QID 05/12/19 05/28/19 History Hydrochlorothiazide [Hydrodiuril] 12.5 mg PO DAILY 05/12/19 05/28/19 History Lansoprazole [Prevacid] 30 mg PO DAILY 05/12/19 05/28/19 History Lisinopril 20 mg PO HS 05/12/19 05/28/19 History Montelukast [Singulair] 10 mg PO DAILY 05/12/19 05/28/19 History [place]-3 Fatty Acids [[place]-3] 1,000 mg PO DAILY 05/12/19 05/28/19 History QUEtiapine [SEROquel] 25 mg PO HS 05/12/19 05/28/19 History Ranitidine HCl [Zantac] 150 mg PO BID 05/12/19 05/28/19 History Simvastatin [Zocor] 40 mg PO HS 05/12/19 05/28/19 History Tamsulosin HCl [Flomax] 0.4 mg PO DAILY 05/12/19 05/28/19 History Vitamin E (Dl,Tocopheryl Acet) 400 unit PO HS 05/12/19 05/28/19 History [Vitamin E] amLODIPine [Norvasc] 5 mg PO DAILY 05/12/19 05/28/19 History lamoTRIgine [LaMICtal] 200 mg PO DAILY 05/12/19 05/28/19 History Allergies Allergy/AdvReac Type Severity Reaction Status Date / Time No Known Allergies Allergy Verified 05/22/19 09:54 Physical Exam Vitals: Vital Signs Temp Pulse Pulse Resp BP BP Pulse Ox 05/28/19 14:20 72 12 100 05/28/19 14:10 73 15 99 05/28/19 14:06 98 05/28/19 06:29 97.9 F 89 20 98/54 109/70 95 Intake and Output 05/27/19 05/28/19 05/28/19 22:59 06:59 14:59 Intake Total 200 7 Output Total 1500 Balance 200 -1493 Intake: IV 200 7 Output: Urine 500 Estimated Blood Loss 1000 ABP, PAP, CO, CI - Last 8 Hours Arterial Blood Pressure 107/62 Arterial Blood Pressure 99/67 Pulmonary Artery Pressure 33/24 Pulmonary Artery Pressure 40/31 Cardiac Output 4.6 Cardiac Output 4.6 Cardiac Index 2 Cardiac Index 2 Obese, comfortable likely distress well sedated Head exam was generally normal. There was no scleral icterus or corneal arcus. Mucous membranes were moist. Orogastric and orotracheal tube are both in place Neck was supple and without jugular venous distension, thyromegaly, or carotid bruits. Carotids were easily palpable bilaterally. There was no adenopathy. The patient has a right IJ [place]-Michelle catheter which is in place. Cordis in place and the exit site is clean. Lungs were clear to auscultation and percussion, and with normal diaphragmatic excursion. No wheezes or rales were noted. Cardiac exam revealed the PMI to be normally situated and sized. The rhythm was regular and no extrasystoles were noted during several minutes of auscultation. The first and second heart sounds were normal and physiologic splitting of the second heart sound was noted. There were no murmurs, rubs, clicks, or gallops. Sternum stable clean and intact. The patient has a pleural and mediastinal chest tube which are connected to Pleur-evac. No evidence of any air leak. Output is amenable for now. Examination of the skin revealed no evidence of significant rashes, suspicious appearing nevi or other concerning lesions. Abdominal exam revealed normal bowel sounds. The abdomen was soft, non-tender, and without masses, organomegaly, or appreciable enlargement of the abdominal aorta. Neurologically the patient is sedated with propofol. Pupils are equal and reactive to light. Psychiatric evaluation cannot be done for the above-mentioned reasons. Results - Laboratory Findings ABG ABG pH 7.37 (7.35-7.45) 05/28/19 13:08 ABG pCO2 41 mmHg (35-45) 05/28/19 13:08 ABG pO2 132 mmHg (83-108) H 05/28/19 13:08 ABG O2 Saturation 99.0 % (94-97) H 05/28/19 13:08 Abnormal lab findings: Abnormal Labs 05/24/19 05/28/19 05/28/19 10:59 06:20 10:03 ABG pO2 410 H ABG HCO3 26 H ABG Total CO2 27 H ABG O2 Saturation 99.9 H ABG Glucose 108 H POC Glucose (mg/dL) 101 H Arterial Blood Glucose 108 H Crossmatch See Detail 05/28/19 05/28/19 05/28/19 11:14 11:48 12:18 ABG pO2 201 H 206 H 209 H ABG HCO3 ABG Total CO2 26 H 25 H 26 H ABG O2 Saturation 99.7 H 99.9 H 99.6 H ABG Glucose 119 H 119 H 119 H POC Glucose (mg/dL) Arterial Blood Glucose 119 H 119 H 119 H Crossmatch 05/28/19 05/28/19 13:08 14:09 ABG pO2 132 H ABG HCO3 ABG Total CO2 25 H ABG O2 Saturation 99.0 H ABG Glucose 120 H POC Glucose (mg/dL) 118 H Arterial Blood Glucose 120 H Crossmatch - Diagnostic Findings Chest x-ray: image reviewed Assessment and Plan Plan: 1 severe coronary artery disease, symptomatic with symptoms of chest pain and shortness of breath. The patient underwent two-vessel bypass surgery with STYLES to LAD and radial artery graft to PDA. The patient is postop day #0. The patient is hemodynamically stable. The patient is on a combination of nitroglycerin and Cardizem drip regarding his radial artery grafts. 2 post thoracotomy, currently intubated on a mechanical ventilator. 3 acute respiratory failure, hypoxic, and expected outcome of surgery. Currently on a FiO2 100% and a PEEP of 10 and a tidal volume of 500. We'll get is still pending. Chest x-ray was reviewed. The patient has pleural and mediastinal chest tubes. 4 obesity with a BMI of 42.3 5 obstructive sleep apnea and the patient has been a long-time CPAP or 6 hypertension 7 hyperlipidemia Plan Switch this patient is an assist-control mode of ventilation. Included respiratory rate up to 20 and after reviewing the blood. Addendum of the FiO2 down to 60% and A tidal volume of 500. Monitor the output from the chest tubes. I'm going to drop the FiO2 gradually with 10% of the time to maintain a saturation above 90%. Monitor the hemodynamic parameters. Gradually wean off the sedation and I'm anticipating exhibition next few hours. May need to use his CPAP on a BiPAP or any form of noninvasive positive pressure ventilation postoperative the patient has history of obstructive sleep apnea and he is a long-term CPAP. We have FEV1 is 78%. He is on routine bronchodilators. We'll continue to follow.
[2019-05-28 14:43] LABS: Albumin 3.5 g/dL (3.5-5.0); Calcium 8.2 mg/dL (8.4-10.2); Magnesium 2.3 mg/dL (1.6-2.3); Potassium 4.1 mmol/L (3.5-5.1); Total Bilirubin 0.8 mg/dL (0.2-1.3); Total Protein 5.4 g/dL (6.3-8.2)
--- NOTE | 2019-05-28 14:45 | XR ---
EXAMINATION TYPE: XR chest 1V portable DATE OF EXAM: 05/28/2019 COMPARISON: NONE HISTORY: Status post CABG TECHNIQUE: Single frontal view of the chest is obtained. FINDINGS: Sternotomy wires and surgical clips overlying the mediastinum. Endotracheal tube is approx imately 4.3 cm from the gustavo. Nasogastric tube is seen coursing below the level of diaphragm with t he tip below the GE junction. Left-sided chest tube without pneumothorax. Right-sided internal jugula r [employer]-Michelle catheter tip is seen overlying the region of the right main pulmonary artery. Low lung volumes. Left basilar patchy opacities. Right lung is clear. No pneumothorax. IMPRESSION: Lines and tubes as above. Status post cardiac surgery.
[2019-05-28 15:58] LABS: Glucose,Whole Blood 132 mg/dL (75-99)
[2019-05-28] MEDS ORDERED: IPRATROPIUM-ALBUTEROL 3 ML NEB INHALATION SCH (16:00)
[2019-05-28] MEDS: ceFAZolin 3 GM in SODIUM CHLORIDE 0.9% 100 ML IVPB SCH ×2 (16:08→23:14)
--- NOTE | 2019-05-28 16:14 | P.CRDCN ---
History of Present Illness Consult date: 05/28/19 History of present illness: This is a pleasant 54-year-old gentleman with a past medical history significant for diabetes, hypertension, dyslipidemia, strong family history of coronary artery disease, underwent today an elective CABG. The patient did received STYLES to LAD and radial artery to the PDA branch of the RCA. Recently, the patient was experiencing symptoms of chest discomfort. He was seen by his baseball glove shaper, Dr. Cortez and he subsequently underwent a computed tomography scan of the chest which revealed ossified coronary arteries with calcified right and left coronary systems. At that point a myocardial perfusion imaging stress test was performed and revealed large area of ischemia involving the left anterior descending artery territory/the anterior wall of the left ventricle. 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 The patient also was found to have extensive right to left collateral filling the LAD. Thoracic surgery consult was placed and the patient was seen by Dr. Braxton who did recommend proceeding with CABG. The patient underwent the surgery earlier today. Overall, he is doing good. He is awake. The plan is to extubate the patient later on today. Hemodynamically, he is stable. He is on Cardizem drip because of the radial artery bypass. Beside that, he is on dual antiplatelet therapy along with statin. The patient is likely to be extubated later on today. She has been maintaining normal sinus mechanism. Past Medical History Past Medical History: Fibromyalgia, GERD/Reflux, Hyperlipidemia, Hypertension, Osteoarthritis (OA), Sleep Apnea/CPAP/BIPAP Additional Past Medical History / Comment(s): Coronary artery disease, obstr uctive sleep apnea, hypertension, hyperlipidemia, fibromyalgia, obesity with a BMI of 42.3, remote history of pancreatitis, the patient is a CPAP user History of Any Multi-Drug Resistant Organisms: None Reported Past Surgical History: Heart Catheterization, Orthopedic Surgery Additional Past Surgical History / Comment(s): sinus surg. x4, repair left detached retina, achilles surg., recent heart cath. Past Anesthesia/Blood Transfusion Reactions: No Reported Reaction, Motion Sickness Past Psychological History: Anxiety, Bipolar, Depression Smoking Status: Never smoker Past Alcohol Use History: None Reported Past Drug Use History: None Reported - Past Family History Mother Family Medical History: Cancer Father Family Medical History: Cancer, Coronary Artery Disease (CAD), Myocardial Infarction ([place]) Additional Family Medical History / Comment(s): Father with myocardial infarction at 42 years old Medications and Allergies Home Medications Medication Instructions Recorded Confirmed Type ALPRAZolam [Xanax] 0.5 mg PO DAILY PRN 05/12/19 05/28/19 History Aspirin [Adult Low Dose Aspirin EC] 81 mg PO DAILY 05/12/19 05/28/19 History Cholecalciferol (Vitamin D3) 5,000 unit PO DAILY 05/12/19 05/28/19 History [Vitamin D3] Cyanocobalamin (Vitamin B-12) 1,000 mcg PO DAILY 05/12/19 05/28/19 History [Vitamin B-12] Desvenlafaxine Succinate [Pristiq] 50 mg PO DAILY 05/12/19 05/28/19 History Fexofenadine HCl [Michelle Allergy] 180 mg PO DAILY 05/12/19 05/28/19 History Fluticasone Nasal [place] [Flonase 2 spr EA NOSTRIL DAILY 05/12/19 05/28/19 History Nasal [place]] Gabapentin [Neurontin] 300 mg PO QID 05/12/19 05/28/19 History Hydrochlorothiazide [Hydrodiuril] 12.5 mg PO DAILY 05/12/19 05/28/19 History Lansoprazole [Prevacid] 30 mg PO DAILY 05/12/19 05/28/19 History Lisinopril 20 mg PO HS 05/12/19 05/28/19 History Montelukast [Singulair] 10 mg PO DAILY 05/12/19 05/28/19 History [place]-3 Fatty Acids [[place]-3] 1,000 mg PO DAILY 05/12/19 05/28/19 History QUEtiapine [SEROquel] 25 mg PO HS 05/12/19 05/28/19 History Ranitidine HCl [Zantac] 150 mg PO BID 05/12/19 05/28/19 History Simvastatin [Zocor] 40 mg PO HS 05/12/19 05/28/19 History Tamsulosin HCl [Flomax] 0.4 mg PO DAILY 05/12/19 05/28/19 History Vitamin E (Dl,Tocopheryl Acet) 400 unit PO HS 05/12/19 05/28/19 History [Vitamin E] amLODIPine [Norvasc] 5 mg PO DAILY 05/12/19 05/28/19 History lamoTRIgine [LaMICtal] 200 mg PO DAILY 05/12/19 05/28/19 History Allergies Allergy/AdvReac Type Severity Reaction Status Date / Time No Known Allergies Allergy Verified 05/22/19 09:54 Physical Exam Vitals: Vital Signs Temp Pulse Pulse Resp BP BP Pulse Ox 05/28/19 15:15 72 05/28/19 15:00 78 21 95 05/28/19 14:47 73 05/28/19 14:30 73 20 100 05/28/19 14:20 72 12 100 05/28/19 14:10 73 15 99 05/28/19 14:06 98 05/28/19 06:29 97.9 F 89 20 98/54 109/70 95 Intake and Output 05/28/19 05/28/19 05/28/19 06:59 14:59 22:59 Intake Total 200 57 50 Output Total 1557 113 Balance 200 -1500 -63 Intake: IV 200 57 50 Lactated Ringers 1,000 ml 50 50 @ 50 mls/hr IV .Q20H [facility] Rx#:[id number] Output: Chest Tube Drainage 22 53 Left Pleural/Mediastinal 22 53 Urine 535 60 Estimated Blood Loss 1000 ABP, PAP, CO, CI - Last 8 Hours Arterial Blood Pressure 91/57 Arterial Blood Pressure 94/65 Arterial Blood Pressure 107/62 Arterial Blood Pressure 99/67 Pulmonary Artery Pressure 32/23 Pulmonary Artery Pressure 33/23 Pulmonary Artery Pressure 33/24 Pulmonary Artery Pressure 40/31 Cardiac Output 4.6 Cardiac Output 4.6 Cardiac Index 2 Cardiac Index 2 - Constitutional General appearance: no acute distress - Respiratory Respiratory: bilateral: diminished - Cardiovascular Rhythm: regular Heart sounds: normal: S1, S2 Results 05/28/19 14:00 05/28/19 14:00 Cardiac Enzymes 05/28/19 Range/Units 14:00 AST 31 (17-59) U/L Coagulation 05/28/19 Range/Units 14:00 PT 11.0 (9.0-12.0) sec APTT 29.2 (22.0-30.0) sec CBC 05/28/19 Range/Units 14:00 WBC 11.7 H (3.8-10.6) k/uL RBC 4.31 (4.30-5.90) m/uL Hgb 13.2 D (13.0-17.5) gm/dL Hct 38.3 L (39.0-53.0) % Plt Count 234 (150-450) k/uL Comprehensive Metabolic Panel 05/28/19 Range/Units 14:00 Sodium 140 (137-145) mmol/L Potassium 4.1 (3.5-5.1) mmol/L Chloride 108 H (98-107) mmol/L Carbon Dioxide 24 (22-30) mmol/L BUN 16 (9-20) mg/dL Creatinine 1.10 (0.66-1.25) mg/dL Glucose 121 H (74-99) mg/dL Calcium 8.2 L (8.4-10.2) mg/dL AST 31 (17-59) U/L ALT 35 (21-72) U/L Alkaline Phosphatase 44 (38-126) U/L Total Protein 5.4 L (6.3-8.2) g/dL Albumin 3.5 (3.5-5.0) g/dL Current Medications Generic Name Dose Route Start Last Admin Trade Name Freq PRN Reason Stop Dose Admin Hydrocodone Bitart/Acetaminophen 2 each 05/29/19 01:42 Williams 5-325 PO Q4HR PRN Severe Pain Hydrocodone Bitart/Acetaminophen 1 each 05/29/19 01:42 Williams 5-325 PO Q4HR PRN Moderate Pain Albuterol/Ipratropium 3 ml 05/28/19 14:19 Duoneb 0.5 Mg-3 Mg/3 Ml Soln INHALATION RT-Q2H PRN Shortness Of Breath Or Wheezing Albuterol/Ipratropium 3 ml 05/28/19 16:00 05/28/19 14:41 Duoneb 0.5 Mg-3 Mg/3 Ml Soln INHALATION 05/28/19 19:44 3 ml RT-Q4H [facility] Administration Albuterol/Ipratropium 3 ml 05/28/19 19:44 Duoneb 0.5 Mg-3 Mg/3 Ml Soln INHALATION RT-QID [facility] Aspirin 325 mg 05/29/19 09:00 Aspirin PO DAILY [facility] Atorvastatin Calcium 40 mg 05/29/19 09:00 Lipitor PO DAILY [facility] Benzocaine/Menthol 1 each 05/28/19 14:19 Cepacol Lozenge MUCOUS MEM Q2H PRN Sore Throat Bisacodyl 10 mg 05/29/19 09:00 Dulcolax RECTAL DAILY PRN Constipation Cholecalciferol 5,000 unit 05/29/19 09:00 Vitamin D3 (25 Mcg = 1000 Iu) PO DAILY [facility] Clopidogrel Bisulfate 75 mg 05/29/19 09:00 Plavix PO DAILY [facility] Cyanocobalamin 1,000 mcg 05/29/19 09:00 Vitamin B-12 PO DAILY [facility] Heparin Sodium (Porcine) 5,000 unit 05/28/19 21:43 Heparin SQ Q8HR [facility] Acetaminophen 1,000 mg/ IV 100 mls @ 400 mls/hr 05/28/19 18:00 Solution IVPB 05/29/19 00:14 Q6HR [facility] Albumin Human 250 ml/ IV 250 mls @ 250 mls/hr 05/28/19 14:19 Solution IVPB 05/30/19 14:20 Q1HR PRN For Volume Amiodarone HCl 150 mg/ 103 mls @ 618 mls/hr 05/28/19 14:19 Dextrose/Water IV .Q10M PRN A.FIB/FLUTTER Protocol Amiodarone HCl 360 mg/ 200 mls @ 33.333 mls/hr 05/28/19 14:19 Dextrose/Water IV .Q6H PRN A.FIB/FLUTTER Protocol 1 MG/MIN Amiodarone HCl 300 mg/ 250 mls @ 25 mls/hr 05/28/19 14:19 Dextrose/Water IV .Q10H PRN A.FIB/FLUTTER Protocol 0.5 MG/MIN Calcium Gluconate 2 gm/ Sodium 120 mls @ 100 mls/hr 05/28/19 14:19 Chloride IVPB 05/31/19 14:20 ONCE PRN Ionized Calcium less than 4.4 Diltiazem HCl 125 mg/ Sodium 125 mls @ 5 mls/hr 05/28/19 14:19 Chloride IV .Q24H [facility] 5 MG/HR Cefazolin Sodium 3 gm/ Sodium 100 mls @ 100 mls/hr 05/28/19 16:00 Chloride IVPB 05/29/19 08:59 Q8HR [facility] Clevidipine 25 mg/ IV Solution 50 mls @ 2 mls/hr 05/28/19 14:19 IV .Q24H [facility] Protocol 1 MG/HR Lactated Ringer's 1,000 mls @ 50 mls/hr 05/28/19 14:19 Lactated Ringers IV .Q20H [facility] Nitroglycerin/Dextrose 50 mg/ 250 mls @ 1.5 mls/hr 05/28/19 14:19 IV Solution IV .Q24H [facility] 5 MCG/MIN Propofol 1,000 mg/ IV Solution 100 mls @ 0 mls/hr 05/28/19 14:19 IV .Q0M [facility] Protocol Titrate Ketorolac Tromethamine 15 mg 05/28/19 18:00 Toradol IVP 06/02/19 18:01 Q6HR [facility] Lamotrigine 200 mg 05/29/19 09:00 Lamictal PO DAILY [facility] Magnesium Hydroxide 2,400 mg 05/29/19 09:00 Milk Of Magnesia PO BID PRN Constipation Metoclopramide HCl 10 mg 05/28/19 14:19 Reglan IVP Q4H PRN Nausea And Vomiting Metoprolol Tartrate 12.5 mg 05/29/19 09:00 Lopressor PO BID [facility] Miscellaneous Information 1 each 05/28/19 14:19 Magnesium Per Protocol MISCELLANE DAILY PRN Per Protocol Protocol Miscellaneous Information 1 each 05/28/19 14:19 Phosphorus Per Protocol MISCELLANE DAILY PRN Per Protocol Protocol Miscellaneous Information 1 each 05/28/19 14:19 Potassium Per Protocol MISCELLANE DAILY PRN Per Protocol Protocol Montelukast Sodium 10 mg 05/29/19 09:00 Singulair PO DAILY [facility] Ondansetron HCl 4 mg 05/28/19 14:19 Zofran IVP Q6HR PRN Nausea And Vomiting Oxycodone HCl 10 mg 05/28/19 14:19 Oxyir PO 05/29/19 01:42 Q4H PRN Severe Pain Oxycodone HCl 5 mg 05/28/19 14:19 Oxyir PO 05/29/19 01:42 Q4H PRN Moderate Pain Pantoprazole Sodium 40 mg 05/29/19 09:00 Protonix IVP DAILY [facility] Quetiapine Fumarate 25 mg 05/28/19 21:00 Seroquel PO HS [facility] Senna/Docusate Sodium 2 each 05/29/19 21:00 Senokot-S PO HS [facility] Sodium Chloride 10 ml 05/28/19 21:00 Saline Flush IV BID [facility] Tamsulosin HCl 0.4 mg 05/29/19 09:00 Flomax PO DAILY [facility] Vitamin E 400 unit 05/28/19 21:00 Vitamin E PO HS [facility] Intake and Output 05/28/19 05/28/19 05/28/19 06:59 14:59 22:59 Intake Total 200 57 50 Output Total 1557 113 Balance 200 -1500 -63 Intake: IV 200 57 50 Lactated Ringers 1,000 ml 50 50 @ 50 mls/hr IV .Q20H [facility] Rx#:[id number] Output: Chest Tube Drainage 22 53 Left Pleural/Mediastinal 22 53 Urine 535 60 Estimated Blood Loss 1000 05/28/19 14:00 05/28/19 14:00 Assessment and Plan Assessment: Assessment #1 severe CAD and status post CABG #2 hypertension #3 dyslipidemia Plan #1 continue the current medical regimen including dual antiplatelet therapy and statin #2 the patient to be weaned from the Cardizem IV and started on calcium channel amna by mouth #3 likely is going to be extubated later on today. Intensive care team on the case #4 follow-up with the patient
[2019-05-28] MEDS: KETOROLAC 30 MG/ML 1 ML VIAL IVP SCH ×2 (16:21→23:15)
[2019-05-28 16:37] LABS: ABG Base Excess -2.3 mmol/L; ABG HCO3 24 mmol/L (21-25); ABG Oxygen Saturation 98.6 % (94-97); ABG PCO2 49 mmHg (35-45); ABG PO2 128 mmHg (83-108); ABG TCO2 26 mmol/L (19-24); Allen Test Performed? Yes
[2019-05-28 16:48] LABS: Glucose,Whole Blood 149 mg/dL (75-99)
[2019-05-28 17:08] LABS: Basophils # (A) 0.1 k/uL (0-0.2); Basophils % (A) 0 %; Eosinophils # (A) 0.1 k/uL (0-0.7); Eosinophils % (A) 1 %; HCT 39.8 % (39.0-53.0); HGB 13.2 gm/dL (13.0-17.5); Lymphocytes # (A) 1.6 k/uL (1.0-4.8); Lymphocytes % (A) 13 %; MCH 29.6 pg (25.0-35.0); MCHC 33.2 g/dL (31.0-37.0); MCV 89.1 fL (80.0-100.0); Mean Platelet Volume 6.7; Monocytes # (A) 0.7 k/uL (0-1.0); Monocytes % (A) 5 %; Neutrophils # (A) 9.9 k/uL (1.3-7.7); Neutrophils % (A) 80 %; Platelet Count 240 k/uL (150-450); RBC 4.47 m/uL (4.30-5.90); RDW 12.6 % (11.5-15.5); WBC 12.4 k/uL (3.8-10.6)
[2019-05-28] MEDS: ACETAMINOPHEN IV (For NPO) 1,000 MG in EMPTY BAG 1 BAG IVPB SCH ×2 (17:47→23:14)
--- NOTE | 2019-05-28 17:52 | P.CONS ---
History of Present Illness - Reason for Consult Post CABG hyperglycemia management - History of Present Illness His is a pleasant 54-year-old female had a positive stress test on to have severe two-vessel coronary artery disease underwent the coronary artery bypass grafting with STYLES to LAD and radial artery graft to PDA. Patient was initially with the on ventilator which was patient was extubated just before I saw the patient patient on BiPAP able to provide me fairly good history patient's CVP is 18 cardiac output is 4.2. Chest x-ray showing some cardiomegaly patient has 2 chest tubes 1 mediastinal and one left pleural with significant drainage in there and patient has a [place]-Michelle in place and patient is on IV nitroglycerin drip IV Cardizem drip to prevent vasospasm also on clevedipine for blood pressure, off propofol sedation. Adequate urine output. Review of Systems REVIEW OF SYSTEMS: CONSTITUTIONAL: No fever, no malaise, no fatigue. HEENT: No recent visual problems or hearing problems. Denied any sore throat. CARDIOVASCULAR: No chest pain, orthopnea, PND, no palpitations, no syncope. PULMONARY: No shortness of breath, no cough, no hemoptysis. GASTROINTESTINAL: No diarrhea, no nausea, no vomiting, no abdominal pain. NEUROLOGICAL: No headaches, no weakness, no numbness. HEMATOLOGICAL: Denies any bleeding or petechiae. GENITOURINARY: Denies any burning micturition, frequency, or urgency. MUSCULOSKELETAL/RHEUMATOLOGICAL: Denies any joint pain, swelling, or any muscle pain. ENDOCRINE: Denies any polyuria or polydipsia. The rest of the 14-point review of systems is negative. Past Medical History Past Medical History: Fibromyalgia, GERD/Reflux, Hyperlipidemia, Hypertension, Osteoarthritis (OA), Sleep Apnea/CPAP/BIPAP Additional Past Medical History / Comment(s): Coronary artery disease, obstructive sleep apnea, hypertension, hyperlipidemia, fibromyalgia, obesity wit h a BMI of 42.3, remote history of pancreatitis, the patient is a CPAP user History of Any Multi-Drug Resistant Organisms: None Reported Past Surgical History: Heart Catheterization, Orthopedic Surgery Additional Past Surgical History / Comment(s): sinus surg. x4, repair left detached retina, achilles surg., recent heart cath. Past Anesthesia/Blood Transfusion Reactions: No Reported Reaction, Motion Sickness Past Psychological History: Anxiety, Bipolar, Depression Smoking Status: Never smoker Past Alcohol Use History: None Reported Past Drug Use History: None Reported - Past Family History Mother Family Medical History: Cancer Father Family Medical History: Cancer, Coronary Artery Disease (CAD), Myocardial Infarction ([place]) Additional Family Medical History / Comment(s): Father with myocardial infarction at 42 years old Medications and Allergies Home Medications Medication Instructions Recorded Confirmed Type ALPRAZolam [Xanax] 0.5 mg PO DAILY PRN 05/12/19 05/28/19 History Aspirin [Adult Low Dose Aspirin EC] 81 mg PO DAILY 05/12/19 05/28/19 History Cholecalciferol (Vitamin D3) 5,000 unit PO DAILY 05/12/19 05/28/19 History [Vitamin D3] Cyanocobalamin (Vitamin B-12) 1,000 mcg PO DAILY 05/12/19 05/28/19 History [Vitamin B-12] Desvenlafaxine Succinate [Pristiq] 50 mg PO DAILY 05/12/19 05/28/19 History Fexofenadine HCl [Michelle Allergy] 180 mg PO DAILY 05/12/19 05/28/19 History Fluticasone Nasal [place] [Flonase 2 spr EA NOSTRIL DAILY 05/12/19 05/28/19 History Nasal [place]] Gabapentin [Neurontin] 300 mg PO QID 05/12/19 05/28/19 History Hydrochlorothiazide [Hydrodiuril] 12.5 mg PO DAILY 05/12/19 05/28/19 History Lansoprazole [Prevacid] 30 mg PO DAILY 05/12/19 05/28/19 History Lisinopril 20 mg PO HS 05/12/19 05/28/19 History Montelukast [Singulair] 10 mg PO DAILY 05/12/19 05/28/19 History [place]-3 Fatty Acids [[place]-3] 1,000 mg PO DAILY 05/12/19 05/28/19 History QUEtiapine [SEROquel] 25 mg PO HS 05/12/19 05/28/19 History Ranitidine HCl [Zantac] 150 mg PO BID 05/12/19 05/28/19 History Simvastatin [Zocor] 40 mg PO HS 05/12/19 05/28/19 History Tamsulosin HCl [Flomax] 0.4 mg PO DAILY 05/12/19 05/28/19 History Vitamin E (Dl,Tocopheryl Acet) 400 unit PO HS 05/12/19 05/28/19 History [Vitamin E] amLODIPine [Norvasc] 5 mg PO DAILY 05/12/19 05/28/19 History lamoTRIgine [LaMICtal] 200 mg PO DAILY 05/12/19 05/28/19 History Allergies Allergy/AdvReac Type Severity Reaction Status Date / Time No Known Allergies Allergy Verified 05/22/19 09:54 Physical Exam Vitals: Vital Signs Temp Pulse Pulse Resp BP BP BP 05/28/19 16:30 89 21 111/67 05/28/19 16:00 82 23 92/60 05/28/19 15:30 73 20 88/52 05/28/19 15:15 72 05/28/19 15:00 78 21 05/28/19 14:47 73 05/28/19 14:30 73 20 05/28/19 14:20 72 12 05/28/19 14:10 73 15 05/28/19 14:06 05/28/19 06:29 97.9 F 89 20 98/54 109/70 Pulse Ox 05/28/19 16:30 99 05/28/19 16:00 100 05/28/19 15:30 100 05/28/19 15:15 05/28/19 15:00 95 05/28/19 14:47 05/28/19 14:30 100 05/28/19 14:20 100 05/28/19 14:10 99 05/28/19 14:06 98 05/28/19 06:29 95 Intake and Output 05/28/19 05/28/19 05/28/19 06:59 14:59 22:59 Intake Total 200 57 100 Output Total 1557 173 Balance 200 -1500 -73 Intake: IV 200 57 100 Lactated Ringers 1,000 ml 50 100 @ 50 mls/hr IV .Q20H [facility] Rx#:[id number] Output: Chest Tube Drainage 22 78 Left Pleural/Mediastinal 22 78 Urine 535 95 Estimated Blood Loss 1000 Other: Voiding Method Indwelling Catheter ABP, PAP, CO, CI - Last 8 Hours Arterial Blood Pressure 137/73 Arterial Blood Pressure 117/66 Arterial Blood Pressure 94/65 Arterial Blood Pressure 91/57 Arterial Blood Pressure 94/65 Arterial Blood Pressure 107/62 Arterial Blood Pressure 99/67 Pulmonary Artery Pressure 35/24 Pulmonary Artery Pressure 37/28 Pulmonary Artery Pressure 33/24 Pulmonary Artery Pressure 32/23 Pulmonary Artery Pressure 33/23 Pulmonary Artery Pressure 33/24 Pulmonary Artery Pressure 40/31 Cardiac Output 7.5 Cardiac Output 7.5 Cardiac Output 4.6 Cardiac Output 4.6 Cardiac Output 4.6 Cardiac Index 3.3 Cardiac Index 3.3 Cardiac Index 2 Cardiac Index 2 Cardiac Index 2 PHYSICAL EXAMINATION: GENERAL: The patient is alert and oriented x3, and is on BiPAP clinically doing well patient has above-mentioned chest tubes [place]le in place HEENT: Pupils are round and equally reacting to light. EOMI. No scleral icterus. No conjunctival pallor. Normocephalic, atraumatic. No pharyngeal erythema. No thyromegaly. CARDIOVASCULAR: S1 and S2 present. No murmurs, rubs, or gallops. PULMONARY: Chest is clear to auscultation, no wheezing or crackles. ABDOMEN: Soft, nontender, nondistended, normoactive bowel sounds. No palpable organomegaly. MUSCULOSKELETAL: No joint swelling or deformity. EXTREMITIES: No cyanosis, clubbing, or pedal edema. NEUROLOGICAL: Gross neurological examination did not reveal any focal deficits. SKIN: No rashes. Results CBC & Chem 7: 05/28/19 16:35 05/28/19 14:00 Labs: Abnormal Lab Results - Last 24 Hours (Table) 05/24/19 05/28/19 05/28/19 Range/Units 10:59 06:20 10:03 WBC (3.8-10.6) k/uL Hct (39.0-53.0) % Neutrophils # (1.3-7.7) k/uL ABG pH (7.35-7.45) ABG pCO2 (35-45) mmHg ABG pO2 410 H (83-108) mmHg ABG HCO3 26 H (21-25) mmol/L ABG Total CO2 27 H (19-24) mmol/L ABG O2 Saturation 99.9 H (94-97) % ABG Glucose 108 H (75-99) mg/dL Chloride (98-107) mmol/L Glucose (74-99) mg/dL POC Glucose (mg/dL) 101 H (75-99) mg/dL Calcium (8.4-10.2) mg/dL Total Protein (6.3-8.2) g/dL Arterial Blood Glucose 108 H (75-99) mg/dL Crossmatch See Detail 05/28/19 05/28/19 05/28/19 Range/Units 11:14 11:48 12:18 WBC (3.8-10.6) k/uL Hct (39.0-53.0) % Neutrophils # (1.3-7.7) k/uL ABG pH (7.35-7.45) ABG pCO2 (35-45) mmHg ABG pO2 201 H 206 H 209 H (83-108) mmHg ABG HCO3 (21-25) mmol/L ABG Total CO2 26 H 25 H 26 H (19-24) mmol/L ABG O2 Saturation 99.7 H 99.9 H 99.6 H (94-97) % ABG Glucose 119 H 119 H 119 H (75-99) mg/dL Chloride (98-107) mmol/L Glucose (74-99) mg/dL POC Glucose (mg/dL) (75-99) mg/dL Calcium (8.4-10.2) mg/dL Total Protein (6.3-8.2) g/dL Arterial Blood Glucose 119 H 119 H 119 H (75-99) mg/dL Crossmatch 05/28/19 05/28/19 05/28/19 Range/Units 13:08 14:00 14:00 WBC 11.7 H (3.8-10.6) k/uL Hct 38.3 L (39.0-53.0) % Neutrophils # 9.4 H (1.3-7.7) k/uL ABG pH (7.35-7.45) ABG pCO2 (35-45) mmHg ABG pO2 132 H (83-108) mmHg ABG HCO3 (21-25) mmol/L ABG Total CO2 25 H (19-24) mmol/L ABG O2 Saturation 99.0 H (94-97) % ABG Glucose 120 H (75-99) mg/dL Chloride 108 H (98-107) mmol/L Glucose 121 H (74-99) mg/dL POC Glucose (mg/dL) (75-99) mg/dL Calcium 8.2 L (8.4-10.2) mg/dL Total Protein 5.4 L (6.3-8.2) g/dL Arterial Blood Glucose 120 H (75-99) mg/dL Crossmatch 05/28/19 05/28/19 05/28/19 Range/Units 14:09 14:29 15:35 WBC (3.8-10.6) k/uL Hct (39.0-53.0) % Neutrophils # (1.3-7.7) k/uL ABG pH 7.30 L (7.35-7.45) ABG pCO2 53 H (35-45) mmHg ABG pO2 203 H (83-108) mmHg ABG HCO3 26 H (21-25) mmol/L ABG Total CO2 27 H (19-24) mmol/L ABG O2 Saturation 99.1 H (94-97) % ABG Glucose (75-99) mg/dL Chloride (98-107) mmol/L Glucose (74-99) mg/dL POC Glucose (mg/dL) 118 H 132 H (75-99) mg/dL Calcium (8.4-10.2) mg/dL Total Protein (6.3-8.2) g/dL Arterial Blood Glucose (75-99) mg/dL Crossmatch 05/28/19 05/28/19 05/28/19 Range/Units 16:33 16:35 16:40 WBC 12.4 H (3.8-10.6) k/uL Hct (39.0-53.0) % Neutrophils # 9.9 H (1.3-7.7) k/uL ABG pH 7.30 L (7.35-7.45) ABG pCO2 49 H (35-45) mmHg ABG pO2 128 H (83-108) mmHg ABG HCO3 (21-25) mmol/L ABG Total CO2 26 H (19-24) mmol/L ABG O2 Saturation 98.6 H (94-97) % ABG Glucose (75-99) mg/dL Chloride (98-107) mmol/L Glucose (74-99) mg/dL POC Glucose (mg/dL) 149 H (75-99) mg/dL Calcium (8.4-10.2) mg/dL Total Protein (6.3-8.2) g/dL Arterial Blood Glucose (75-99) mg/dL Crossmatch Assessment and Plan Plan: 10 coronary artery disease status post CABG continue with the above-mentioned management. -Postoperative respiratory failure status post extubation patient is presently on BiPAP which will be weaned down to nasal cannula oxygen -Obesity -Obstructive sleep apnea -Hypertension -Hyperlipidemia Plan is to continue present medications continue with IV insulin which can be switched to sliding scale insulin day after we continue to follow
[2019-05-28] MEDS ORDERED: INSULIN REGULAR 100 UNIT in SODIUM CHLORIDE 0.9% 100 ML IV SCH (18:45)
[2019-05-28 18:48] LABS: Glucose,Whole Blood 122 mg/dL (75-99)
[2019-05-28] MEDS: IPRATROPIUM-ALBUTEROL 3 ML NEB INHALATION SCH ×2 (19:38→19:47)
[2019-05-28 19:46] LABS: Glucose,Whole Blood 123 mg/dL (75-99)
[2019-05-28 20:16] LABS: Glucose,Whole Blood 126 mg/dL (75-99)
[2019-05-28] MEDS: QUEtiapine 25 MG TAB PO SCH (20:25)
[2019-05-28 20:27] LABS: Basophils # (A) 0.1 k/uL (0-0.2); Basophils % (A) 1 %; Eosinophils % (A) 0 %; HCT 40.2 % (39.0-53.0); HGB 13.5 gm/dL (13.0-17.5); Lymphocytes % (A) 8 %; MCH 29.7 pg (25.0-35.0); MCHC 33.5 g/dL (31.0-37.0); MCV 88.6 fL (80.0-100.0); Mean Platelet Volume 7.3; Monocytes # (A) 0.8 k/uL (0-1.0); Monocytes % (A) 6 %; Neutrophils % (A) 84 %; Platelet Count 222 k/uL (150-450); RBC 4.54 m/uL (4.30-5.90); RDW 14.3 % (11.5-15.5); WBC 11.9 k/uL (3.8-10.6)
[2019-05-28] MEDS ORDERED: MUPIROCIN 2% OINT 22 GM TUBE NASAL SCH (21:00)
[2019-05-28] MEDS: VITAMIN E (DL,TOCOPHERYL ACET) 400 UNIT CAP PO SCH (21:42)
[2019-05-28] MEDS: HEPARIN SODIUM,PORCINE 5,000 UNIT/ML 1 ML VIAL SQ SCH ×2 (21:43→23:15)
[2019-05-28 22:19] LABS: Glucose,Whole Blood 130 mg/dL (75-99)
[2019-05-28 22:49] LABS: African American GFR (CKD) >90 (>60 ml/min/1.73 sqM); Anion Gap 7 mmol/L; Blood Urea Nitrogen 18 mg/dL (9-20); Calcium 8.7 mg/dL (8.4-10.2); Carbon Dioxide 25 mmol/L (22-30); Chloride 106 mmol/L (98-107); Glucose 121 mg/dL (74-99); Magnesium 2.3 mg/dL (1.6-2.3); Non-African American GFR(CKD) 83 (>60 ml/min/1.73 sqM); Phosphorus 3.8 mg/dL (2.5-4.5); Potassium 4.4 mmol/L (3.5-5.1); Sodium 138 mmol/L (137-145)
[2019-05-28 23:54] LABS: Glucose,Whole Blood 127 mg/dL (75-99)
[2019-05-29] MEDS ORDERED: HYDROcodone/APAP 5-325MG 1 EACH TAB PO PRN (01:42)
[2019-05-29 03:15] LABS: Glucose,Whole Blood 125 mg/dL (75-99)
[2019-05-29 04:21] LABS: Basophils # (A) 0.1 k/uL (0-0.2); Basophils % (A) 1 %; Eosinophils # (A) 0.1 k/uL (0-0.7); Eosinophils % (A) 1 %; HCT 40.8 % (39.0-53.0); HGB 13.8 gm/dL (13.0-17.5); Lymphocytes # (A) 1.3 k/uL (1.0-4.8); Lymphocytes % (A) 13 %; MCH 29.9 pg (25.0-35.0); MCHC 33.9 g/dL (31.0-37.0); MCV 88.4 fL (80.0-100.0); Monocytes # (A) 0.9 k/uL (0-1.0); Monocytes % (A) 8 %; Neutrophils # (A) 8.3 k/uL (1.3-7.7); Neutrophils % (A) 77 %; Platelet Count 260 k/uL (150-450); RBC 4.62 m/uL (4.30-5.90); RDW 12.2 % (11.5-15.5); WBC 10.7 k/uL (3.8-10.6)
[2019-05-29 04:39] LABS: ALT 29 U/L (21-72); AST 33 U/L (17-59); African American GFR (CKD) >90 (>60 ml/min/1.73 sqM); Albumin 3.5 g/dL (3.5-5.0); Alkaline Phosphatase 46 U/L (38-126); Anion Gap 7 mmol/L; Blood Urea Nitrogen 19 mg/dL (9-20); Calcium 8.8 mg/dL (8.4-10.2); Carbon Dioxide 25 mmol/L (22-30); Chloride 104 mmol/L (98-107); Glucose 126 mg/dL (74-99); Magnesium 2.2 mg/dL (1.6-2.3); Non-African American GFR(CKD) 88 (>60 ml/min/1.73 sqM); Potassium 4.4 mmol/L (3.5-5.1); Sodium 136 mmol/L (137-145); Total Bilirubin 0.9 mg/dL (0.2-1.3); Total Protein 5.6 g/dL (6.3-8.2)
[2019-05-29] MEDS ORDERED: CARDIOPLEGIC SOLN (K+ 16 MEQ/L 1,000 ML with SODIUM BICARB (1 MEQ/ML) 20 ML, LIDOCAINE ... PERFUSION ONE ×3 (05:00)
--- NOTE | 2019-05-29 06:37 | P.PN ---
Subjective Progress Note Date: 05/29/19 Principal diagnosis: Status post coronary artery bypass grafting This is a pleasant 54-year-old gentleman with a past medical history significant for diabetes, hypertension, dyslipidemia, strong family history of coronary artery disease, underwent today an elective CABG. The patient did received STYLES to LAD and radial artery to the PDA branch of the RCA. Recently, the patient was experiencing symptoms of chest discomfort. He was seen by his preparer making department, Dr. Cortez and he subsequently underwent a computed tomography scan of the chest which revealed ossified coronary arteries with calcified right and left coronary systems. At that point a myocardial perfusion imaging stress test was performed and revealed large area of ischemia involving the left anterior descending artery territory/the anterior wall of the left ventricle. 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 The patient also was found to have extensive right to left collateral filling the LAD. Thoracic surgery consult was placed and the patient was seen by Dr. Braxton who did recommend proceeding with CABG. The patient underwent the surgery earlier today. Overall, he is doing good. He is awake. The plan is to extubate the patient later on today. Hemodynamically, he is stable. He is on Cardizem drip because of the radial artery bypass. On follow-up with the patient today, 05/29/2019, the patient was extubated yesterday. Hemodynamically he is stable. He continues to be on nitro drip as well as Cardizem drip. He will be weaned off both drips later on today and he will be started on calcium channel amna for radial artery bypass. Beside that he is on dual antiplatelet therapy along with a statin. The urine output is good. The blood work including CBC and BMP are within normal limits. The chest x-ray was reviewed and also showed small left pleural effusion. Overall the patient is doing well clinically. No arrhythmia noted. Objective - Vital Signs Vital signs: Vital Signs Temp 97.9 F 05/29/19 00:00 Pulse 90 05/29/19 03:30 Resp 21 05/29/19 03:30 BP 113/77 05/29/19 03:30 Pulse Ox 96 05/29/19 03:30 Intake & Output 05/28/19 05/28/19 05/29/19 06:59 18:59 06:59 Intake Total 634 546 8676.875 Output Total 1935 910 Balance 200 -1678 225.875 Intake: IV 773 482 1423.5 ACETAMINOPHEN IV (For NPO 100 ) 1,000 mg In Empty Bag 1 bag @ 400 mls/hr IVPB Q6HR [facility] Rx#:[id number] CO/CI+pressure bags 312 Lactated Ringers 1,000 ml 250 500 @ 50 mls/hr IV .Q20H [facility] Rx#:[id number] Nitroglycerin-D5w Pmx 50 13.5 mg In Dextrose/Water 1 250ml.bag @ 5 MCG/MIN 1.5 mls/hr IV .Q24H [facility] Rx#: [id number] ceFAZolin 3 gm In Sodium 100 Chloride 0.9% 100 ml @ 100 mls/hr IVPB Q8HR [facility] Rx#:[id number] Intake, IV Titration 10.375 Amount Clevidipine Butyrate 25 9.033 mg In Empty Bag 1 bag @ 1 MG/HR 2 mls/hr IV .Q24H [facility] Rx#:[id number] Insulin Regular 100 unit 1.342 In Sodium Chloride 0.9% 100 ml @ Per Protocol IV .Q0M [facility] Rx#:[id number] Oral 100 Output: Chest Tube Drainage 170 240 Left Pleural/Mediastinal 170 240 Drainage 10 Left Wrist 10 Urine 755 670 Estimated Blood Loss 1000 Other: Voiding Method Indwelling Catheter Indwelling Catheter ABP, PAP, CO, CI - Last Documented Arterial Blood Pressure 94/65 Pulmonary Artery Pressure 21/10 Cardiac Output 6.3 Cardiac Index 2.8 - Constitutional General appearance: Present: no acute distress - Respiratory Respiratory: bilateral: diminished - Cardiovascular Rhythm: regular Heart sounds: normal: S1, S2 - Labs CBC & Chem 7: 05/29/19 04:05 05/29/19 04:05 Labs: Abnormal Lab Results - Last 24 Hours (Table) 05/24/19 05/28/19 05/28/19 Range/Units 10:59 06:20 10:03 WBC (3.8-10.6) k/uL Hct (39.0-53.0) % Neutrophils # (1.3-7.7) k/uL ABG pH (7.35-7.45) ABG pCO2 (35-45) mmHg ABG pO2 410 H (83-108) mmHg ABG HCO3 26 H (21-25) mmol/L ABG Total CO2 27 H (19-24) mmol/L ABG O2 Saturation 99.9 H (94-97) % ABG Glucose 108 H (75-99) mg/dL Sodium (137-145) mmol/L Chloride (98-107) mmol/L Glucose (74-99) mg/dL POC Glucose (mg/dL) 101 H (75-99) mg/dL Calcium (8.4-10.2) mg/dL Total Protein (6.3-8.2) g/dL Arterial Blood Glucose 108 H (75-99) mg/dL Crossmatch See Detail 05/28/19 05/28/19 05/28/19 Range/Units 11:14 11:48 12:18 WBC (3.8-10.6) k/uL Hct (39.0-53.0) % Neutrophils # (1.3-7.7) k/uL ABG pH (7.35-7.45) ABG pCO2 (35-45) mmHg ABG pO2 201 H 206 H 209 H (83-108) mmHg ABG HCO3 (21-25) mmol/L ABG Total CO2 26 H 25 H 26 H (19-24) mmol/L ABG O2 Saturation 99.7 H 99.9 H 99.6 H (94-97) % ABG Glucose 119 H 119 H 119 H (75-99) mg/dL Sodium (137-145) mmol/L Chloride (98-107) mmol/L Glucose (74-99) mg/dL POC Glucose (mg/dL) (75-99) mg/dL Calcium (8.4-10.2) mg/dL Total Protein (6.3-8.2) g/dL Arterial Blood Glucose 119 H 119 H 119 H (75-99) mg/dL Crossmatch 05/28/19 05/28/19 05/28/19 Range/Units 13:08 14:00 14:00 WBC 11.7 H (3.8-10.6) k/uL Hct 38.3 L (39.0-53.0) % Neutrophils # 9.4 H (1.3-7.7) k/uL ABG pH (7.35-7.45) ABG pCO2 (35-45) mmHg ABG pO2 132 H (83-108) mmHg ABG HCO3 (21-25) mmol/L ABG Total CO2 25 H (19-24) mmol/L ABG O2 Saturation 99.0 H (94-97) % ABG Glucose 120 H (75-99) mg/dL Sodium (137-145) mmol/L Chloride 108 H (98-107) mmol/L Glucose 121 H (74-99) mg/dL POC Glucose (mg/dL) (75-99) mg/dL Calcium 8.2 L (8.4-10.2) mg/dL Total Protein 5.4 L (6.3-8.2) g/dL Arterial Blood Glucose 120 H (75-99) mg/dL Crossmatch 05/28/19 05/28/19 05/28/19 Range/Units 14:09 14:29 15:35 WBC (3.8-10.6) k/uL Hct (39.0-53.0) % Neutrophils # (1.3-7.7) k/uL ABG pH 7.30 L (7.35-7.45) ABG pCO2 53 H (35-45) mmHg ABG pO2 203 H (83-108) mmHg ABG HCO3 26 H (21-25) mmol/L ABG Total CO2 27 H (19-24) mmol/L ABG O2 Saturation 99.1 H (94-97) % ABG Glucose (75-99) mg/dL Sodium (137-145) mmol/L Chloride (98-107) mmol/L Glucose (74-99) mg/dL POC Glucose (mg/dL) 118 H 132 H (75-99) mg/dL Calcium (8.4-10.2) mg/dL Total Protein (6.3-8.2) g/dL Arterial Blood Glucose (75-99) mg/dL Crossmatch 05/28/19 05/28/19 05/28/19 Range/Units 16:33 16:35 16:40 WBC 12.4 H (3.8-10.6) k/uL Hct (39.0-53.0) % Neutrophils # 9.9 H (1.3-7.7) k/uL ABG pH 7.30 L (7.35-7.45) ABG pCO2 49 H (35-45) mmHg ABG pO2 128 H (83-108) mmHg ABG HCO3 (21-25) mmol/L ABG Total CO2 26 H (19-24) mmol/L ABG O2 Saturation 98.6 H (94-97) % ABG Glucose (75-99) mg/dL Sodium (137-145) mmol/L Chloride (98-107) mmol/L Glucose (74-99) mg/dL POC Glucose (mg/dL) 149 H (75-99) mg/dL Calcium (8.4-10.2) mg/dL Total Protein (6.3-8.2) g/dL Arterial Blood Glucose (75-99) mg/dL Crossmatch 05/28/19 05/28/19 05/28/19 Range/Units 18:37 19:30 19:30 WBC 11.9 H (3.8-10.6) k/uL Hct (39.0-53.0) % Neutrophils # 10.0 H (1.3-7.7) k/uL ABG pH (7.35-7.45) ABG pCO2 (35-45) mmHg ABG pO2 (83-108) mmHg ABG HCO3 (21-25) mmol/L ABG Total CO2 (19-24) mmol/L ABG O2 Saturation (94-97) % ABG Glucose (75-99) mg/dL Sodium (137-145) mmol/L Chloride (98-107) mmol/L Glucose 121 H (74-99) mg/dL POC Glucose (mg/dL) 122 H (75-99) mg/dL Calcium (8.4-10.2) mg/dL Total Protein (6.3-8.2) g/dL Arterial Blood Glucose (75-99) mg/dL Crossmatch 05/28/19 05/28/19 05/28/19 Range/Units 19:32 20:12 21:50 WBC (3.8-10.6) k/uL Hct (39.0-53.0) % Neutrophils # (1.3-7.7) k/uL ABG pH (7.35-7.45) ABG pCO2 (35-45) mmHg ABG pO2 (83-108) mmHg ABG HCO3 (21-25) mmol/L ABG Total CO2 (19-24) mmol/L ABG O2 Saturation (94-97) % ABG Glucose (75-99) mg/dL Sodium (137-145) mmol/L Chloride (98-107) mmol/L Glucose (74-99) mg/dL POC Glucose (mg/dL) 123 H 126 H 130 H (75-99) mg/dL Calcium (8.4-10.2) mg/dL Total Protein (6.3-8.2) g/dL Arterial Blood Glucose (75-99) mg/dL Crossmatch 05/28/19 05/29/19 05/29/19 Range/Units 23:50 03:11 04:05 WBC 10.7 H (3.8-10.6) k/uL Hct (39.0-53.0) % Neutrophils # 8.3 H (1.3-7.7) k/uL ABG pH (7.35-7.45) ABG pCO2 (35-45) mmHg ABG pO2 (83-108) mmHg ABG HCO3 (21-25) mmol/L ABG Total CO2 (19-24) mmol/L ABG O2 Saturation (94-97) % ABG Glucose (75-99) mg/dL Sodium (137-145) mmol/L Chloride (98-107) mmol/L Glucose (74-99) mg/dL POC Glucose (mg/dL) 127 H 125 H (75-99) mg/dL Calcium (8.4-10.2) mg/dL Total Protein (6.3-8.2) g/dL Arterial Blood Glucose (75-99) mg/dL Crossmatch 05/29/19 Range/Units 04:05 WBC (3.8-10.6) k/uL Hct (39.0-53.0) % Neutrophils # (1.3-7.7) k/uL ABG pH (7.35-7.45) ABG pCO2 (35-45) mmHg ABG pO2 (83-108) mmHg ABG HCO3 (21-25) mmol/L ABG Total CO2 (19-24) mmol/L ABG O2 Saturation (94-97) % ABG Glucose (75-99) mg/dL Sodium 136 L (137-145) mmol/L Chloride (98-107) mmol/L Glucose 126 H (74-99) mg/dL POC Glucose (mg/dL) (75-99) mg/dL Calcium (8.4-10.2) mg/dL Total Protein 5.6 L (6.3-8.2) g/dL Arterial Blood Glucose (75-99) mg/dL Crossmatch Assessment and Plan Assessment: Assessment #1 severe CAD and status post CABG #2 hypertension #3 dyslipidemia Plan #1 continue the current medical regimen including dual antiplatelet therapy and statin #2 the patient to be weaned from the Cardizem IV and started on calcium channel amna by mouth #3 try to wean the patient from nitro drip #4 continue monitor the kidney function and electrolytes #5 continue monitor for arrhythmia #6 follow-up with the patient
[2019-05-29] MEDS: KETOROLAC 30 MG/ML 1 ML VIAL IVP SCH ×4 (06:58→23:59)
[2019-05-29] MEDS: IPRATROPIUM-ALBUTEROL 3 ML NEB INHALATION SCH ×4 (07:16→19:16)
--- NOTE | 2019-05-29 08:04 | XR ---
EXAMINATION TYPE: XR chest 1V portable DATE OF EXAM: 05/29/2019 COMPARISON: 05/28/2019 HISTORY: Postoperative cardiac surgery TECHNIQUE: Single frontal view of the chest is obtained. FINDINGS: Removal of endotracheal tube and nasogastric tube. Right Jupiter-Michelle catheter, left chest tu be, sternotomy wires and mediastinal drain. Persistent bibasilar opacities. Cardiac silhouette and pu lmonary vasculature are unchanged. No pneumothorax. IMPRESSION: Removal of the endotracheal tube and nasogastric tube. Bibasilar atelectasis or infiltrate.
--- NOTE | 2019-05-29 08:43 | P.PN ---
Subjective Progress Note Date: 05/29/19 Principal diagnosis: Severe double vessel coronary artery disease. Previous medical history of hypertension, hyperlipidemia, obstructive sleep apnea with home CPAP use, bipolar/depression, morbid obesity, fibromyalgia, and family history of premature coronary artery disease with father having myocardial infarction at 42 years old. POD #1 off-pump coronary artery bypass grafting 2 with the left internal mammary artery to the left anterior descending artery and left radial artery graft to the posterior descending coronary artery with endoscopic radial artery harvest and intraoperative transesophageal echocardiogram by anesthesia. The patient is currently sitting up in a recliner in the intensive care unit in no acute distress. He was successfully extubated last night at 1700. He is currently in normal sinus rhythm, hemodynamically stable on no inotropes or pressors. IV Cardizem infusing for radial artery support. Does complain of post surgical chest pain which is controlled on current medication regimen, denies shortness of breath. Mediastinal left pleural chest tubes remained in place, Lawley/Cordis, arterial line remain in place. No concerns. Objective - Vital Signs Vital signs: Vital Signs Temp 98.7 F 05/29/19 04:00 Pulse 90 05/29/19 07:30 Resp 20 05/29/19 07:00 BP 105/71 05/29/19 07:00 Pulse Ox 95 05/29/19 07:00 Intake & Output 05/28/19 05/29/19 05/29/19 18:59 06:59 18:59 Intake Total 257 1316.875 90.5 Output Total 1935 1080 55 Balance -1678 236.875 35.5 Weight 104.1 kg Intake: IV 257 1206.5 90.5 ACETAMINOPHEN IV (For NPO 100 ) 1,000 mg In Empty Bag 1 bag @ 400 mls/hr IVPB Q6HR [facility] Rx#:[id number] CO/CI+pressure bags 390 39 Lactated Ringers 1,000 ml 250 600 50 @ 20 mls/hr IV .Q24H [facility] Rx#:[id number] Nitroglycerin-D5w Pmx 50 16.5 1.5 mg In Dextrose/Water 1 250ml.bag @ 5 MCG/MIN 1.5 mls/hr IV .Q24H [facility] Rx#: [id number] ceFAZolin 3 gm In Sodium 100 Chloride 0.9% 100 ml @ 100 mls/hr IVPB Q8HR [facility] Rx#:[id number] Intake, IV Titration 10.375 Amount Clevidipine Butyrate 25 9.033 mg In Empty Bag 1 bag @ 1 MG/HR 2 mls/hr IV .Q24H [facility] Rx#:[id number] Insulin Regular 100 unit 1.342 In Sodium Chloride 0.9% 100 ml @ Per Protocol IV .Q0M [facility] Rx#:[id number] Oral 100 Output: Chest Tube Drainage 170 310 10 Left Pleural/Mediastinal 170 310 10 Drainage 10 5 Left Wrist 10 5 Urine 755 770 40 Estimated Blood Loss 1000 Other: Voiding Method Indwelling Catheter Indwelling Catheter ABP, PAP, CO, CI - Last Documented Arterial Blood Pressure 96/53 Pulmonary Artery Pressure 16/4 Cardiac Output 4.7 Cardiac Index 2.1 - Constitutional General appearance: Present: cooperative, morbidly obese, no acute distress - Respiratory Details: Lungs sounds diminished bilaterally. Respirations even, nonlabored. Currently on 4 L nasal cannula with oxygen saturation 95%. Only able to achieve 500 mL on his incentive spirometry. Mediastinal/left pleural chest tube to continuous wall suction, 150 mL serosanguineous drainage overnight, 500 mL since surgery, no air leaks present. - Cardiovascular Details: S1, S2 present. Regular rate and rhythm, sinus rhythm on telemetry. Sternum stable. Palpable peripheral pulses bilaterally. No edema present. No calf pain or tenderness noted. Right internal jugular Lawley/Cordis, right brachial arterial line present. Last CO/CI 4.7/2.1 on no inotropes or pressors. Heart hugger in place with patient demonstrating appropriate use. Antiembolism stockings, SCDs present. - Gastrointestinal Gastrointestinal Comment(s): Abdomen soft, nontender, nondistended, obese. Hypoactive bowel sounds present 4 quadrants. Tolerating clear liquids. Negative flatus. - Genitourinary Genitourinary Comment(s): Rodas present draining clear, yellow urine. Output 30-60 mL/h overnight. - Integumentary Integumentary Comment(s): Skin is warm and dry with evidence of good perfusion. Anterior chest incision well approximated and covered with dry intact dressing. Left radial artery harvest site well approximated, ZULEMA drain present with minimal serous drainage. 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 - Neurologic Neurologic: Present: CNII-XII intact - Musculoskeletal Musculoskeletal: Present: strength equal bilaterally - Psychiatric Psychiatric: Present: A&O x's 3, appropriate affect, intact judgment & insight - Allied health notes Allied health notes reviewed: nursing - Labs CBC & Chem 7: 05/29/19 04:05 05/29/19 04:05 Labs: Abnormal Lab Results - Last 24 Hours (Table) 05/24/19 05/28/19 05/28/19 Range/Units 10:59 10:03 11:14 WBC (3.8-10.6) k/uL Hct (39.0-53.0) % Neutrophils # (1.3-7.7) k/uL ABG pH (7.35-7.45) ABG pCO2 (35-45) mmHg ABG pO2 410 H 201 H (83-108) mmHg ABG HCO3 26 H (21-25) mmol/L ABG Total CO2 27 H 26 H (19-24) mmol/L ABG O2 Saturation 99.9 H 99.7 H (94-97) % ABG Glucose 108 H 119 H (75-99) mg/dL Sodium (137-145) mmol/L Chloride (98-107) mmol/L Glucose (74-99) mg/dL POC Glucose (mg/dL) (75-99) mg/dL Calcium (8.4-10.2) mg/dL Total Protein (6.3-8.2) g/dL Arterial Blood Glucose 108 H 119 H (75-99) mg/dL Crossmatch See Detail 05/28/19 05/28/19 05/28/19 Range/Units 11:48 12:18 13:08 WBC (3.8-10.6) k/uL Hct (39.0-53.0) % Neutrophils # (1.3-7.7) k/uL ABG pH (7.35-7.45) ABG pCO2 (35-45) mmHg ABG pO2 206 H 209 H 132 H (83-108) mmHg ABG HCO3 (21-25) mmol/L ABG Total CO2 25 H 26 H 25 H (19-24) mmol/L ABG O2 Saturation 99.9 H 99.6 H 99.0 H (94-97) % ABG Glucose 119 H 119 H 120 H (75-99) mg/dL Sodium (137-145) mmol/L Chloride (98-107) mmol/L Glucose (74-99) mg/dL POC Glucose (mg/dL) (75-99) mg/dL Calcium (8.4-10.2) mg/dL Total Protein (6.3-8.2) g/dL Arterial Blood Glucose 119 H 119 H 120 H (75-99) mg/dL Crossmatch 05/28/19 05/28/19 05/28/19 Range/Units 14:00 14:00 14:09 WBC 11.7 H (3.8-10.6) k/uL Hct 38.3 L (39.0-53.0) % Neutrophils # 9.4 H (1.3-7.7) k/uL ABG pH (7.35-7.45) ABG pCO2 (35-45) mmHg ABG pO2 (83-108) mmHg ABG HCO3 (21-25) mmol/L ABG Total CO2 (19-24) mmol/L ABG O2 Saturation (94-97) % ABG Glucose (75-99) mg/dL Sodium (137-145) mmol/L Chloride 108 H (98-107) mmol/L Glucose 121 H (74-99) mg/dL POC Glucose (mg/dL) 118 H (75-99) mg/dL Calcium 8.2 L (8.4-10.2) mg/dL Total Protein 5.4 L (6.3-8.2) g/dL Arterial Blood Glucose (75-99) mg/dL Crossmatch 05/28/19 05/28/19 05/28/19 Range/Units 14:29 15:35 16:33 WBC (3.8-10.6) k/uL Hct (39.0-53.0) % Neutrophils # (1.3-7.7) k/uL ABG pH 7.30 L 7.30 L (7.35-7.45) ABG pCO2 53 H 49 H (35-45) mmHg ABG pO2 203 H 128 H (83-108) mmHg ABG HCO3 26 H (21-25) mmol/L ABG Total CO2 27 H 26 H (19-24) mmol/L ABG O2 Saturation 99.1 H 98.6 H (94-97) % ABG Glucose (75-99) mg/dL Sodium (137-145) mmol/L Chloride (98-107) mmol/L Glucose (74-99) mg/dL POC Glucose (mg/dL) 132 H (75-99) mg/dL Calcium (8.4-10.2) mg/dL Total Protein (6.3-8.2) g/dL Arterial Blood Glucose (75-99) mg/dL Crossmatch 05/28/19 05/28/19 05/28/19 Range/Units 16:35 16:40 18:37 WBC 12.4 H (3.8-10.6) k/uL Hct (39.0-53.0) % Neutrophils # 9.9 H (1.3-7.7) k/uL ABG pH (7.35-7.45) ABG pCO2 (35-45) mmHg ABG pO2 (83-108) mmHg ABG HCO3 (21-25) mmol/L ABG Total CO2 (19-24) mmol/L ABG O2 Saturation (94-97) % ABG Glucose (75-99) mg/dL Sodium (137-145) mmol/L Chloride (98-107) mmol/L Glucose (74-99) mg/dL POC Glucose (mg/dL) 149 H 122 H (75-99) mg/dL Calcium (8.4-10.2) mg/dL Total Protein (6.3-8.2) g/dL Arterial Blood Glucose (75-99) mg/dL Crossmatch 05/28/19 05/28/19 05/28/19 Range/Units 19:30 19:30 19:32 WBC 11.9 H (3.8-10.6) k/uL Hct (39.0-53.0) % Neutrophils # 10.0 H (1.3-7.7) k/uL ABG pH (7.35-7.45) ABG pCO2 (35-45) mmHg ABG pO2 (83-108) mmHg ABG HCO3 (21-25) mmol/L ABG Total CO2 (19-24) mmol/L ABG O2 Saturation (94-97) % ABG Glucose (75-99) mg/dL Sodium (137-145) mmol/L Chloride (98-107) mmol/L Glucose 121 H (74-99) mg/dL POC Glucose (mg/dL) 123 H (75-99) mg/dL Calcium (8.4-10.2) mg/dL Total Protein (6.3-8.2) g/dL Arterial Blood Glucose (75-99) mg/dL Crossmatch 05/28/19 05/28/19 05/28/19 Range/Units 20:12 21:50 23:50 WBC (3.8-10.6) k/uL Hct (39.0-53.0) % Neutrophils # (1.3-7.7) k/uL ABG pH (7.35-7.45) ABG pCO2 (35-45) mmHg ABG pO2 (83-108) mmHg ABG HCO3 (21-25) mmol/L ABG Total CO2 (19-24) mmol/L ABG O2 Saturation (94-97) % ABG Glucose (75-99) mg/dL Sodium (137-145) mmol/L Chloride (98-107) mmol/L Glucose (74-99) mg/dL POC Glucose (mg/dL) 126 H 130 H 127 H (75-99) mg/dL Calcium (8.4-10.2) mg/dL Total Protein (6.3-8.2) g/dL Arterial Blood Glucose (75-99) mg/dL Crossmatch 05/29/19 05/29/19 05/29/19 Range/Units 03:11 04:05 04:05 WBC 10.7 H (3.8-10.6) k/uL Hct (39.0-53.0) % Neutrophils # 8.3 H (1.3-7.7) k/uL ABG pH (7.35-7.45) ABG pCO2 (35-45) mmHg ABG pO2 (83-108) mmHg ABG HCO3 (21-25) mmol/L ABG Total CO2 (19-24) mmol/L ABG O2 Saturation (94-97) % ABG Glucose (75-99) mg/dL Sodium 136 L (137-145) mmol/L Chloride (98-107) mmol/L Glucose 126 H (74-99) mg/dL POC Glucose (mg/dL) 125 H (75-99) mg/dL Calcium (8.4-10.2) mg/dL Total Protein 5.6 L (6.3-8.2) g/dL Arterial Blood Glucose (75-99) mg/dL Crossmatch - Imaging and Cardiology Chest x-ray: report reviewed, image reviewed Assessment and Plan Assessment: 1. Severe double vessel coronary artery disease, status post 2 vessel coronary artery bypass grafting 2. Hypertension 3. Hyperlipidemia 4. Obstructive sleep apnea with home CPAP use 5. Bipolar/depression 6. Morbid obesity 7. Fibromyalgia 8. Family history of premature coronary artery disease Plan: 1. Continue aspirin, statin, Plavix, beta amna therapy. Will increase beta amna therapy as tolerated. Discontinue IV nitro. Will add lisinopril for afterload reduction when blood pressure will tolerate. 2. Will initiate oral Norvasc for radial artery spasm prophylaxis, discontinue IV Cardizem after Norvasc administered. 3. Wean O2 as tolerated. Encourage incentive spirometry use 10 times every hour while awake. 4. Increase activity, ambulate as tolerated. PT/OT/cardiac rehab following. 5. Bronchodilators per pulmonology. 6. Home CPAP management per pulmonology. 7. Pain control with current medication regimen. 8. Insulin management per primary care service. Patient should remain on IV insulin for 48 hours post surgery for tight blood sugar control. 9. Discontinue Lawley, Cordis, arterial line. Keep mediastinal/left pleural chest tubes for another 24 hours. 10. Keep Rodas for another 24 hours for strict accurate intake and output. 11. Will monitor daily labs, chest x-rays. Elective replacement per protocol. No transfusion. 12. GI/DVT prophylaxis. 13. More recommendations based on patient's progress. Time with Patient: Greater than 30
[2019-05-29] MEDS ORDERED: METOPROLOL TARTRATE 12.5 MG TAB PO SCH (09:00)
[2019-05-29] MEDS ORDERED: BISACODYL 10 MG SUPP RECTAL PRN (09:00)
[2019-05-29] MEDS ORDERED: MAGNESIUM HYDROXIDE 2,400 MG/10 ML CUP PO PRN (09:00)
[2019-05-29] MEDS ORDERED: PANTOPRAZOLE 40 MG/10 ML VIAL IVP SCH (09:00)
[2019-05-29] MEDS ORDERED: amLODIPine 2.5 MG TAB PO SCH (09:00)
[2019-05-29 09:12] LABS: Glucose,Whole Blood 117 mg/dL (75-99)
[2019-05-29] MEDS: CHOLECALCIFEROL 1,000 UNIT TAB PO SCH (09:13)
[2019-05-29] MEDS: ASPIRIN 325 MG TAB PO SCH (09:15)
[2019-05-29] MEDS: CLOPIDOGREL 75 MG TAB PO SCH (09:16)
[2019-05-29] MEDS: TAMSULOSIN 0.4 MG CAP.ER.24H PO SCH (09:16)
[2019-05-29] MEDS: CYANOCOBALAMIN 500 MCG TAB PO SCH (09:17)
[2019-05-29] MEDS: ATORVASTATIN 40 MG TAB PO SCH (09:18)
[2019-05-29] MEDS: lamoTRIgine 100 MG TAB PO SCH (09:18)
[2019-05-29] MEDS: MONTELUKAST 10 MG TAB PO SCH (09:19)
[2019-05-29] MEDS: HEPARIN SODIUM,PORCINE 5,000 UNIT/ML 1 ML VIAL SQ SCH ×3 (09:20→23:59)
--- NOTE | 2019-05-29 09:50 | P.PN ---
Subjective Progress Note Date: 05/29/19 54-year-old female patient who presented with shortness of breath and chest pain and the patient was found to have a positive stress test. Upon further investigation the patient was found to have severe two-vessel coronary artery disease with complete occlusion of the LAD and filling was from collaterals and the patient also had severe disease involving the right coronary artery system. Based on this, coronary artery bypass surgery was recommended and the patient underwent an off-pump 2 vessel bypass surgery with STYLES to LAD and radial artery graft to PDA. Estimated blood loss was 100 mL. The patient is currently in the intensive.. The patient is intubated on a mechanical ventilator. The patient is hemodynamically doing well. Pulmonary artery pressures are 34/24 mmHg. CVP is at 18. The patient's has a cardiac output of 4.2 and an index of 2.0. The patient a mechanical ventilator in assist control mode and the patient is currently at the rate of 12 with a tidal volume of 500 and FiO2 100% and a PEEP of 10. Because the pending for now. Chest x-ray shows cardiomegaly. The media stinal chest tube and the left pleural chest tube are both in place. The patient is [place]-Michelle catheter in place. ET tube is in a good location and the patient is intubated by #8.5 ET tube. The patient has a pleural and a mediastinal chest tube. Output is minimal for now and there is no evidence of any air leak. The patient is producing adequate amount of urine output. The patient on 5 g the left of nitroglycerin drip and Cardizem drip at 5 mg an hour. All of the surgical incision dry clean and intact. The patient on propofol for sedation and is calm and comfortable. No other significant events over this surgery. The patient has obstructive sleep apnea. The patient utilizes a CPAP on outpatient basis. His preop FEV1 is 78% of predicted. On today's evaluation of a 2018 the patient is extubated and the patient is awake and alert doing well without any major complaints. Noted the patient was extubated. Hours after he arrived to the ICU. He was briefly given BiPAP and c urrently is on oxygen by nasal cannula. Cardiac output is up to 4.6. He has still a Cardizem drip at 5 mg an hour that was transitioned to Norvasc. The patient was taken off the nitroglycerin drip. He is on insulin at 1 unit an hour. There is no evidence of air leak. Output from the chest tubes have been minimal for now and the chest that showed adequate expansion of both lungs without evidence of any pneumothorax. He is using incentive spirometer. No other concerns for now. No inotropes. He is postop day #1. Objective - Vital Signs Vital signs: Vital Signs Temp 98.7 F 05/29/19 04:00 Pulse 90 05/29/19 07:30 Resp 20 05/29/19 07:00 BP 105/71 05/29/19 07:00 Pulse Ox 95 05/29/19 07:00 Intake & Output 05/28/19 05/29/19 05/29/19 18:59 06:59 18:59 Intake Total 257 1316.875 101.762 Output Total 1935 1080 55 Balance -1678 236.875 46.762 Weight 104.1 kg Intake: IV 257 1206.5 90.5 ACETAMINOPHEN IV (For NPO 100 ) 1,000 mg In Empty Bag 1 bag @ 400 mls/hr IVPB Q6HR [facility] Rx#:[id number] CO/CI+pressure bags 390 39 Lactated Ringers 1,000 ml 250 600 50 @ 20 mls/hr IV .Q24H [facility] Rx#:[id number] Nitroglycerin-D5w Pmx 50 16.5 1.5 mg In Dextrose/Water 1 250ml.bag @ 5 MCG/MIN 1.5 mls/hr IV .Q24H [facility] Rx#: [id number] ceFAZolin 3 gm In Sodium 100 Chloride 0.9% 100 ml @ 100 mls/hr IVPB Q8HR [facility] Rx#:[id number] Intake, IV Titration 10.375 11.262 Amount Clevidipine Butyrate 25 9.033 mg In Empty Bag 1 bag @ 1 MG/HR 2 mls/hr IV .Q24H [facility] Rx#:[id number] Insulin Regular 100 unit 1.342 11.262 In Sodium Chloride 0.9% 100 ml @ Per Protocol IV .Q0M [facility] Rx#:[id number] Oral 100 Output: Chest Tube Drainage 170 310 10 Left Pleural/Mediastinal 170 310 10 Drainage 10 5 Left Wrist 10 5 Urine 755 770 40 Estimated Blood Loss 1000 Other: Voiding Method Indwelling Catheter Indwelling Catheter ABP, PAP, CO, CI - Last Documented Arterial Blood Pressure 96/53 Pulmonary Artery Pressure 16/4 Cardiac Output 4.7 Cardiac Index 2.1 - Exam - Constitutional General appearance: Present: cooperative, morbidly obese, no acute distress - Respiratory Details: Lungs sounds diminished bilaterally. Respirations even, nonlabored. Currently on 4 L nasal cannula with oxygen saturation 95%. Only able to achieve 500 mL on his incentive spirometry. Mediastinal/left pleural chest tube to continuous wall suction, 150 mL serosanguineous drainage overnight, 500 mL since surgery, no air leaks present. - Cardiovascular Details: S1, S2 present. Regular rate and rhythm, sinus rhythm on telemetry. Sternum stable. Palpable peripheral pulses bilaterally. No edema present. No calf pain or tenderness noted. Right internal jugular [place]ordis, right brachial arterial line present. Last CO/CI 4.7/2.1 on no inotropes or pressors. Heart hugger in place with patient demonstrating appropriate use. Antiembolism stockings, SCDs present. - Gastrointestinal Gastrointestinal Comment(s): Abdomen soft, nontender, nondistended, obese. Hypoactive bowel sounds present 4 quadrants. Tolerating clear liquids. Negative flatus. - Genitourinary Genitourinary Comment(s): Rodas present draining clear, yellow urine. Output 30-60 mL/h overnight. - Integumentary Integumentary Comment(s): Skin is warm and dry with evidence of good perfusion. Anterior chest incision well approximated and covered with dry intact dressing. Left radial artery harvest site well approximated, ZULEMA drain present with minimal serous drainage. 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 - Neurologic Neurologic: Present: CNII-XII intact - Musculoskeletal Musculoskeletal: Present: strength equal bilaterally - Psychiatric Psychiatric: Present: A&O x's 3, appropriate affect, intact judgment & insight - Labs CBC & Chem 7: 05/29/19 04:05 05/29/19 04:05 Labs: Abnormal Lab Results - Last 24 Hours (Table) 05/24/19 05/28/19 05/28/19 Range/Units 10:59 10:03 11:14 WBC (3.8-10.6) k/uL Hct (39.0-53.0) % Neutrophils # (1.3-7.7) k/uL ABG pH (7.35-7.45) ABG pCO2 (35-45) mmHg ABG pO2 410 H 201 H (83-108) mmHg ABG HCO3 26 H (21-25) mmol/L ABG Total CO2 27 H 26 H (19-24) mmol/L ABG O2 Saturation 99.9 H 99.7 H (94-97) % ABG Glucose 108 H 119 H (75-99) mg/dL Sodium (137-145) mmol/L Chloride (98-107) mmol/L Glucose (74-99) mg/dL POC Glucose (mg/dL) (75-99) mg/dL Calcium (8.4-10.2) mg/dL Total Protein (6.3-8.2) g/dL Arterial Blood Glucose 108 H 119 H (75-99) mg/dL Crossmatch See Detail 05/28/19 05/28/19 05/28/19 Range/Units 11:48 12:18 13:08 WBC (3.8-10.6) k/uL Hct (39.0-53.0) % Neutrophils # (1.3-7.7) k/uL ABG pH (7.35-7.45) ABG pCO2 (35-45) mmHg ABG pO2 206 H 209 H 132 H (83-108) mmHg ABG HCO3 (21-25) mmol/L ABG Total CO2 25 H 26 H 25 H (19-24) mmol/L ABG O2 Saturation 99.9 H 99.6 H 99.0 H (94-97) % ABG Glucose 119 H 119 H 120 H (75-99) mg/dL Sodium (137-145) mmol/L Chloride (98-107) mmol/L Glucose (74-99) mg/dL POC Glucose (mg/dL) (75-99) mg/dL Calcium (8.4-10.2) mg/dL Total Protein (6.3-8.2) g/dL Arterial Blood Glucose 119 H 119 H 120 H (75-99) mg/dL Crossmatch 05/28/19 05/28/19 05/28/19 Range/Units 14:00 14:00 14:09 WBC 11.7 H (3.8-10.6) k/uL Hct 38.3 L (39.0-53.0) % Neutrophils # 9.4 H (1.3-7.7) k/uL ABG pH (7.35-7.45) ABG pCO2 (35-45) mmHg ABG pO2 (83-108) mmHg ABG HCO3 (21-25) mmol/L ABG Total CO2 (19-24) mmol/L ABG O2 Saturation (94-97) % ABG Glucose (75-99) mg/dL Sodium (137-145) mmol/L Chloride 108 H (98-107) mmol/L Glucose 121 H (74-99) mg/dL POC Glucose (mg/dL) 118 H (75-99) mg/dL Calcium 8.2 L (8.4-10.2) mg/dL Total Protein 5.4 L (6.3-8.2) g/dL Arterial Blood Glucose (75-99) mg/dL Crossmatch 05/28/19 05/28/19 05/28/19 Range/Units 14:29 15:35 16:33 WBC (3.8-10.6) k/uL Hct (39.0-53.0) % Neutrophils # (1.3-7.7) k/uL ABG pH 7.30 L 7.30 L (7.35-7.45) ABG pCO2 53 H 49 H (35-45) mmHg ABG pO2 203 H 128 H (83-108) mmHg ABG HCO3 26 H (21-25) mmol/L ABG Total CO2 27 H 26 H (19-24) mmol/L ABG O2 Saturation 99.1 H 98.6 H (94-97) % ABG Glucose (75-99) mg/dL Sodium (137-145) mmol/L Chloride (98-107) mmol/L Glucose (74-99) mg/dL POC Glucose (mg/dL) 132 H (75-99) mg/dL Calcium (8.4-10.2) mg/dL Total Protein (6.3-8.2) g/dL Arterial Blood Glucose (75-99) mg/dL Crossmatch 05/28/19 05/28/19 05/28/19 Range/Units 16:35 16:40 18:37 WBC 12.4 H (3.8-10.6) k/uL Hct (39.0-53.0) % Neutrophils # 9.9 H (1.3-7.7) k/uL ABG pH (7.35-7.45) ABG pCO2 (35-45) mmHg ABG pO2 (83-108) mmHg ABG HCO3 (21-25) mmol/L ABG Total CO2 (19-24) mmol/L ABG O2 Saturation (94-97) % ABG Glucose (75-99) mg/dL Sodium (137-145) mmol/L Chloride (98-107) mmol/L Glucose (74-99) mg/dL POC Glucose (mg/dL) 149 H 122 H (75-99) mg/dL Calcium (8.4-10.2) mg/dL Total Protein (6.3-8.2) g/dL Arterial Blood Glucose (75-99) mg/dL Crossmatch 05/28/19 05/28/19 05/28/19 Range/Units 19:30 19:30 19:32 WBC 11.9 H (3.8-10.6) k/uL Hct (39.0-53.0) % Neutrophils # 10.0 H (1.3-7.7) k/uL ABG pH (7.35-7.45) ABG pCO2 (35-45) mmHg ABG pO2 (83-108) mmHg ABG HCO3 (21-25) mmol/L ABG Total CO2 (19-24) mmol/L ABG O2 Saturation (94-97) % ABG Glucose (75-99) mg/dL Sodium (137-145) mmol/L Chloride (98-107) mmol/L Glucose 121 H (74-99) mg/dL POC Glucose (mg/dL) 123 H (75-99) mg/dL Calcium (8.4-10.2) mg/dL Total Protein (6.3-8.2) g/dL Arterial Blood Glucose (75-99) mg/dL Crossmatch 05/28/19 05/28/19 05/28/19 Range/Units 20:12 21:50 23:50 WBC (3.8-10.6) k/uL Hct (39.0-53.0) % Neutrophils # (1.3-7.7) k/uL ABG pH (7.35-7.45) ABG pCO2 (35-45) mmHg ABG pO2 (83-108) mmHg ABG HCO3 (21-25) mmol/L ABG Total CO2 (19-24) mmol/L ABG O2 Saturation (94-97) % ABG Glucose (75-99) mg/dL Sodium (137-145) mmol/L Chloride (98-107) mmol/L Glucose (74-99) mg/dL POC Glucose (mg/dL) 126 H 130 H 127 H (75-99) mg/dL Calcium (8.4-10.2) mg/dL Total Protein (6.3-8.2) g/dL Arterial Blood Glucose (75-99) mg/dL Crossmatch 05/29/19 05/29/19 05/29/19 Range/Units 03:11 04:05 04:05 WBC 10.7 H (3.8-10.6) k/uL Hct (39.0-53.0) % Neutrophils # 8.3 H (1.3-7.7) k/uL ABG pH (7.35-7.45) ABG pCO2 (35-45) mmHg ABG pO2 (83-108) mmHg ABG HCO3 (21-25) mmol/L ABG Total CO2 (19-24) mmol/L ABG O2 Saturation (94-97) % ABG Glucose (75-99) mg/dL Sodium 136 L (137-145) mmol/L Chloride (98-107) mmol/L Glucose 126 H (74-99) mg/dL POC Glucose (mg/dL) 125 H (75-99) mg/dL Calcium (8.4-10.2) mg/dL Total Protein 5.6 L (6.3-8.2) g/dL Arterial Blood Glucose (75-99) mg/dL Crossmatch 05/29/19 Range/Units 09:00 WBC (3.8-10.6) k/uL Hct (39.0-53.0) % Neutrophils # (1.3-7.7) k/uL ABG pH (7.35-7.45) ABG pCO2 (35-45) mmHg ABG pO2 (83-108) mmHg ABG HCO3 (21-25) mmol/L ABG Total CO2 (19-24) mmol/L ABG O2 Saturation (94-97) % ABG Glucose (75-99) mg/dL Sodium (137-145) mmol/L Chloride (98-107) mmol/L Glucose (74-99) mg/dL POC Glucose (mg/dL) 117 H (75-99) mg/dL Calcium (8.4-10.2) mg/dL Total Protein (6.3-8.2) g/dL Arterial Blood Glucose (75-99) mg/dL Crossmatch Assessment and Plan Plan: 1 severe coronary artery disease, symptomatic with symptoms of chest pain and shortness of breath. The patient underwent two-vessel bypass surgery with STYLES to LAD and radial artery graft to PDA. The patient is postop day #1. The patient is hemodynamically stable. The cardiac output is at 4.7 with an index of 2.1. The patient is on Cardizem drip which will be transitioned to Norvasc regarding his radial artery graft. 2 post thoracotomy, the patient was extubated without any major difficulties and the patient currently is in oxygen by nasal cannula. Chest tubes are still in place. 3 severe double vessel coronary artery disease 4 obesity with a BMI of 42.3 5 obstructive sleep apnea and the patient has been a long-time CPAPer 6 hypertension 7 hyperlipidemia Plan We'll continue the aspirin and Plavix. Continue beta blockers. Nitroglycerin drip has been discontinued. Cardizem drip will be discontinued and the patient will be transitioned to oral Norvasc. Encourage use of incentive spirometer. May remove the [place]-Michelle catheter. Chest tube management per cardiothoracic surgery. We'll continue to follow. The patient denies to follow 24 hours.
[2019-05-29 09:56] VITALS: BMI 35.9
[2019-05-29] MEDS: ceFAZolin 3 GM in SODIUM CHLORIDE 0.9% 100 ML IVPB SCH (10:16)
[2019-05-29] MEDS: HYDROcodone/APAP 5-325MG 1 EACH TAB PO PRN (10:24)
[2019-05-29 11:08] LABS: Glucose,Whole Blood 105 mg/dL (75-99)
[2019-05-29] MEDS ORDERED: METOPROLOL TARTRATE 12.5 MG TAB PO STA (11:48)
[2019-05-29] MEDS ORDERED: ACETAMINOPHEN TAB 500 MG TAB PO PRN (11:49)
[2019-05-29 12:10] LABS: Glucose,Whole Blood 113 mg/dL (75-99)
[2019-05-29] MEDS: GABAPENTIN 300 MG CAP PO SCH ×3 (12:43→20:47)
[2019-05-29 13:27] LABS: Glucose,Whole Blood 89 mg/dL (75-99)
--- NOTE | 2019-05-29 14:12 | P.PN ---
Subjective 54-year-old pleasant gentleman is status post cannot remove his grafting postoperative day one. Patient is off Cardizem patient is offClevedipine. Patient still has mediastinal and left chest tubes draining very minimally on nasal cannula oxygen.patient is still on insulin drip Constitutional: Denied any fatigue denied any fever. Cardio vascular: denied any chest pain, palpitations Gastrointestinal denied any nausea vomiting Pulmonary: Denied any shortness of breath cough Neurologic denied any new focal deficits All inpatient medications were reviewed and appropriate changes in these medications as dictated in the interval history and assessment and plan. Objective - Vital Signs Vital signs: Vital Signs Temp 98 F 05/29/19 12:01 Pulse 95 05/29/19 12:01 Resp 24 05/29/19 12:01 BP 124/75 05/29/19 12:01 Pulse Ox 96 05/29/19 12:01 Intake & Output 05/28/19 05/29/19 05/29/19 18:59 06:59 18:59 Intake Total 257 1316.875 791.464 Output Total 1935 1080 215 Balance -1678 236.875 576.464 Weight 104.1 kg 104.1 kg Intake: IV 257 1206.5 230.5 ACETAMINOPHEN IV (For NPO 100 ) 1,000 mg In Empty Bag 1 bag @ 400 mls/hr IVPB Q6HR [facility] Rx#:[id number] CO/CI+pressure bags 390 69 Lactated Ringers 1,000 ml 250 600 60 @ 20 mls/hr IV .Q24H [facility] Rx#:[id number] Nitroglycerin-D5w Pmx 50 16.5 1.5 mg In Dextrose/Water 1 250ml.bag @ 5 MCG/MIN 1.5 mls/hr IV .Q24H [facility] Rx#: [id number] ceFAZolin 3 gm In Sodium 100 100 Chloride 0.9% 100 ml @ 100 mls/hr IVPB Q8HR [facility] Rx#:[id number] Intake, IV Titration 10.375 160.964 Amount Clevidipine Butyrate 25 9.033 mg In Empty Bag 1 bag @ 1 MG/HR 2 mls/hr IV .Q24H [facility] Rx#:[id number] Diltiazem 125 mg In 88.667 Sodium Chloride 0.9% 100 ml @ 5 MG/HR 5 mls/hr IV .Q24H [facility] Rx#:[id number] Insulin Regular 100 unit 1.342 12.297 In Sodium Chloride 0.9% 100 ml @ Per Protocol IV .Q0M [facility] Rx#:[id number] Lactated Ringers 1,000 ml 60 @ 20 mls/hr IV .Q24H [facility] Rx#:[id number] Oral 100 400 Output: Chest Tube Drainage 170 310 10 Left Pleural/Mediastinal 170 310 10 Drainage 10 10 Left Wrist 10 10 Urine 755 770 195 Estimated Blood Loss 1000 Other: Voiding Method Indwelling Catheter Indwelling Catheter Indwelling Catheter ABP, PAP, CO, CI - Last Documented Arterial Blood Pressure 109/69 Pulmonary Artery Pressure 17/6 Cardiac Output 7.2 Cardiac Index 3.1 - Exam PHYSICAL EXAMINATION: GENERAL: The patient is alert and oriented x3, not in any acute distress. Well developed, well nourished. chest tubes as mentioned above HEENT: Pupils are round and equally reacting to light. EOMI. No scleral icterus. No conjunctival pallor. Normocephalic, atraumatic. No pharyngeal erythema. No thyromegaly. CARDIOVASCULAR: S1 and S2 present. No murmurs, rubs, or gallops. PULMONARY: Chest is clear to auscultation, no wheezing or crackles. ABDOMEN: Soft, nontender, nondistended, normoactive bowel sounds. No palpable organomegaly. MUSCULOSKELETAL: No joint swelling or deformity. EXTREMITIES: No cyanosis, clubbing, or pedal edema. NEUROLOGICAL: Gross neurological examination did not reveal any focal deficits. SKIN: No rashes. - Labs CBC & Chem 7: 05/29/19 04:05 05/29/19 04:05 Labs: Abnormal Lab Results - Last 24 Hours (Table) 05/24/19 05/28/19 05/28/19 Range/Units 10:59 14:00 14:00 WBC 11.7 H (3.8-10.6) k/uL Hct 38.3 L (39.0-53.0) % Neutrophils # 9.4 H (1.3-7.7) k/uL ABG pH (7.35-7.45) ABG pCO2 (35-45) mmHg ABG pO2 (83-108) mmHg ABG HCO3 (21-25) mmol/L ABG Total CO2 (19-24) mmol/L ABG O2 Saturation (94-97) % Sodium (137-145) mmol/L Chloride 108 H (98-107) mmol/L Glucose 121 H (74-99) mg/dL POC Glucose (mg/dL) (75-99) mg/dL Calcium 8.2 L (8.4-10.2) mg/dL Total Protein 5.4 L (6.3-8.2) g/dL Crossmatch See Detail 05/28/19 05/28/19 05/28/19 Range/Units 14:09 14:29 15:35 WBC (3.8-10.6) k/uL Hct (39.0-53.0) % Neutrophils # (1.3-7.7) k/uL ABG pH 7.30 L (7.35-7.45) ABG pCO2 53 H (35-45) mmHg ABG pO2 203 H (83-108) mmHg ABG HCO3 26 H (21-25) mmol/L ABG Total CO2 27 H (19-24) mmol/L ABG O2 Saturation 99.1 H (94-97) % Sodium (137-145) mmol/L Chloride (98-107) mmol/L Glucose (74-99) mg/dL POC Glucose (mg/dL) 118 H 132 H (75-99) mg/dL Calcium (8.4-10.2) mg/dL Total Protein (6.3-8.2) g/dL Crossmatch 05/28/19 05/28/19 05/28/19 Range/Units 16:33 16:35 16:40 WBC 12.4 H (3.8-10.6) k/uL Hct (39.0-53.0) % Neutrophils # 9.9 H (1.3-7.7) k/uL ABG pH 7.30 L (7.35-7.45) ABG pCO2 49 H (35-45) mmHg ABG pO2 128 H (83-108) mmHg ABG HCO3 (21-25) mmol/L ABG Total CO2 26 H (19-24) mmol/L ABG O2 Saturation 98.6 H (94-97) % Sodium (137-145) mmol/L Chloride (98-107) mmol/L Glucose (74-99) mg/dL POC Glucose (mg/dL) 149 H (75-99) mg/dL Calcium (8.4-10.2) mg/dL Total Protein (6.3-8.2) g/dL Crossmatch 05/28/19 05/28/19 05/28/19 Range/Units 18:37 19:30 19:30 WBC 11.9 H (3.8-10.6) k/uL Hct (39.0-53.0) % Neutrophils # 10.0 H (1.3-7.7) k/uL ABG pH (7.35-7.45) ABG pCO2 (35-45) mmHg ABG pO2 (83-108) mmHg ABG HCO3 (21-25) mmol/L ABG Total CO2 (19-24) mmol/L ABG O2 Saturation (94-97) % Sodium (137-145) mmol/L Chloride (98-107) mmol/L Glucose 121 H (74-99) mg/dL POC Glucose (mg/dL) 122 H (75-99) mg/dL Calcium (8.4-10.2) mg/dL Total Protein (6.3-8.2) g/dL Crossmatch 05/28/19 05/28/19 05/28/19 Range/Units 19:32 20:12 21:50 WBC (3.8-10.6) k/uL Hct (39.0-53.0) % Neutrophils # (1.3-7.7) k/uL ABG pH (7.35-7.45) ABG pCO2 (35-45) mmHg ABG pO2 (83-108) mmHg ABG HCO3 (21-25) mmol/L ABG Total CO2 (19-24) mmol/L ABG O2 Saturation (94-97) % Sodium (137-145) mmol/L Chloride (98-107) mmol/L Glucose (74-99) mg/dL POC Glucose (mg/dL) 123 H 126 H 130 H (75-99) mg/dL Calcium (8.4-10.2) mg/dL Total Protein (6.3-8.2) g/dL Crossmatch 05/28/19 05/29/19 05/29/19 Range/Units 23:50 03:11 04:05 WBC 10.7 H (3.8-10.6) k/uL Hct (39.0-53.0) % Neutrophils # 8.3 H (1.3-7.7) k/uL ABG pH (7.35-7.45) ABG pCO2 (35-45) mmHg ABG pO2 (83-108) mmHg ABG HCO3 (21-25) mmol/L ABG Total CO2 (19-24) mmol/L ABG O2 Saturation (94-97) % Sodium (137-145) mmol/L Chloride (98-107) mmol/L Glucose (74-99) mg/dL POC Glucose (mg/dL) 127 H 125 H (75-99) mg/dL Calcium (8.4-10.2) mg/dL Total Protein (6.3-8.2) g/dL Crossmatch 05/29/19 05/29/19 05/29/19 Range/Units 04:05 09:00 11:04 WBC (3.8-10.6) k/uL Hct (39.0-53.0) % Neutrophils # (1.3-7.7) k/uL ABG pH (7.35-7.45) ABG pCO2 (35-45) mmHg ABG pO2 (83-108) mmHg ABG HCO3 (21-25) mmol/L ABG Total CO2 (19-24) mmol/L ABG O2 Saturation (94-97) % Sodium 136 L (137-145) mmol/L Chloride (98-107) mmol/L Glucose 126 H (74-99) mg/dL POC Glucose (mg/dL) 117 H 105 H (75-99) mg/dL Calcium (8.4-10.2) mg/dL Total Protein 5.6 L (6.3-8.2) g/dL Crossmatch 05/29/19 Range/Units 12:07 WBC (3.8-10.6) k/uL Hct (39.0-53.0) % Neutrophils # (1.3-7.7) k/uL ABG pH (7.35-7.45) ABG pCO2 (35-45) mmHg ABG pO2 (83-108) mmHg ABG HCO3 (21-25) mmol/L ABG Total CO2 (19-24) mmol/L ABG O2 Saturation (94-97) % Sodium (137-145) mmol/L Chloride (98-107) mmol/L Glucose (74-99) mg/dL POC Glucose (mg/dL) 113 H (75-99) mg/dL Calcium (8.4-10.2) mg/dL Total Protein (6.3-8.2) g/dL Crossmatch Assessment and Plan Plan: 10 coronary artery disease status post CABG continue with the above-mentioned management. -Postoperative respiratory failure status post extubation on nasal cannula oxygen -Obesity -Obstructive sleep apnea -Hypertension -Hyperlipidemia Plan is to continue present medications continue with IV insulin which can be switched to sliding scale insulin day after we continue to follow
[2019-05-29 15:38] LABS: Glucose,Whole Blood 128 mg/dL (75-99)
[2019-05-29 17:14] LABS: Glucose,Whole Blood 95 mg/dL (75-99)
[2019-05-29 18:23] LABS: Glucose,Whole Blood 91 mg/dL (75-99)
[2019-05-29] MEDS: VITAMIN E (DL,TOCOPHERYL ACET) 400 UNIT CAP PO SCH (20:47)
[2019-05-29] MEDS: SENNOSIDES-DOCUSATE SODIUM 1 EACH TAB PO SCH (20:47)
[2019-05-29] MEDS: METOPROLOL TARTRATE 25 MG TAB PO SCH (20:47)
[2019-05-29] MEDS: QUEtiapine 25 MG TAB PO SCH (20:47)
[2019-05-29 20:56] LABS: Glucose,Whole Blood 96 mg/dL (75-99)
[2019-05-29 22:29] LABS: Glucose,Whole Blood 102 mg/dL (75-99)
[2019-05-29 23:34] LABS: Glucose,Whole Blood 116 mg/dL (75-99)
[2019-05-30 00:47] LABS: Glucose,Whole Blood 111 mg/dL (75-99)
[2019-05-30 01:07] LABS: Glucose,Whole Blood 108 mg/dL (75-99)
[2019-05-30 02:21] LABS: Glucose,Whole Blood 108 mg/dL (75-99)
[2019-05-30 03:23] LABS: Glucose,Whole Blood 108 mg/dL (75-99)
[2019-05-30] MEDS: HYDROcodone/APAP 5-325MG 1 EACH TAB PO PRN (03:54)
[2019-05-30 04:08] LABS: Glucose,Whole Blood 114 mg/dL (75-99)
[2019-05-30 05:32] LABS: Glucose,Whole Blood 117 mg/dL (75-99)
[2019-05-30 06:31] LABS: Glucose,Whole Blood 114 mg/dL (75-99)
[2019-05-30] MEDS: KETOROLAC 30 MG/ML 1 ML VIAL IVP SCH ×4 (06:43→23:21)
[2019-05-30] MEDS: PANTOPRAZOLE 40 MG TABLET PO SCH (06:43)
[2019-05-30 06:59] LABS: Basophils # (A) 0.1 k/uL (0-0.2); Basophils % (A) 1 %; Eosinophils # (A) 0.5 k/uL (0-0.7); Eosinophils % (A) 5 %; HCT 37.1 % (39.0-53.0); HGB 12.9 gm/dL (13.0-17.5); Lymphocytes # (A) 1.4 k/uL (1.0-4.8); Lymphocytes % (A) 14 %; MCH 30.9 pg (25.0-35.0); MCHC 34.9 g/dL (31.0-37.0); MCV 88.4 fL (80.0-100.0); Monocytes # (A) 0.7 k/uL (0-1.0); Monocytes % (A) 6 %; Neutrophils # (A) 7.5 k/uL (1.3-7.7); Neutrophils % (A) 73 %; Platelet Count 212 k/uL (150-450); RDW 14.9 % (11.5-15.5); WBC 10.2 k/uL (3.8-10.6)
[2019-05-30 07:13] LABS: Glucose,Whole Blood 115 mg/dL (75-99)
[2019-05-30 07:16] LABS: Albumin 3.4 g/dL (3.5-5.0); Calcium 9.1 mg/dL (8.4-10.2); Potassium 4.2 mmol/L (3.5-5.1); Total Bilirubin 1.3 mg/dL (0.2-1.3); Total Protein 5.6 g/dL (6.3-8.2)
[2019-05-30 07:20] LABS: Ionized Calcium 5.3 mg/dL (4.5-5.3)
--- NOTE | 2019-05-30 07:28 | P.PN ---
Subjective Progress Note Date: 05/30/19 Principal diagnosis: Status post coronary artery bypass grafting This is a pleasant 54-year-old gentleman with a past medical history significant for diabetes, hypertension, dyslipidemia, strong family history of coronary artery disease, underwent today an elective CABG. The patient did received STYLES to LAD and radial artery to the PDA branch of the RCA. Recently, the patient was experiencing symptoms of chest discomfort. He was seen by his sugar sampler, Dr. Cortez and he subsequently underwent a computed tomography scan of the chest which revealed ossified coronary arteries with calcified right and left coronary systems. At that point a myocardial perfusion imaging stress test was performed and revealed large area of ischemia involving the left anterior descending artery territory/the anterior wall of the left ventricle. 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 The patient also was found to have extensive right to left collateral filling the LAD. Thoracic surgery consult was placed and the patient was seen by Dr. Braxton who did recommend proceeding with CABG. The patient underwent the surgery earlier today. Overall, he is doing good. He is awake. The plan is to extubate the patient later on today. Hemodynamically, he is stable. He is on Cardizem drip because of the radial artery bypass. On follow-up with the patient today, 05/30/2019, the patient is making good recovery. Hemodynamically he is stable beside marginally low blood pressure. He is also slightly tachycardic with a resting heart rate in the 90s. Beside that he is on dual antiplatelet therapy, high intensity statin, and he is on calcium channel amna as well as beta amna. I suggested increase the dose of metoprolol and decrease the dose of Norvasc. Otherwise, he has been in normal sinus mechanism. The urine output is good. The chest x-ray was reviewed as well. Objective - Vital Signs Vital signs: Vital Signs Temp 98.4 F 05/30/19 04:00 Pulse 91 05/30/19 07:00 Resp 16 05/30/19 07:00 BP 102/62 05/30/19 07:00 Pulse Ox 94 L 05/30/19 07:00 Intake & Output 05/29/19 05/30/19 05/30/19 18:59 06:59 18:59 Intake Total 982.289 120 10 Output Total 1030 630 0 Balance -47.711 -510 10 Weight 104.1 kg 108.1 kg Intake: IV 270.5 120 10 CO/CI+pressure bags 69 Lactated Ringers 1,000 ml 100 120 10 @ 20 mls/hr IV .Q24H [facility] Rx#:[id number] Nitroglycerin-D5w Pmx 50 1.5 mg In Dextrose/Water 1 250ml.bag @ 5 MCG/MIN 1.5 mls/hr IV .Q24H [facility] Rx#: [id number] ceFAZolin 3 gm In Sodium 100 Chloride 0.9% 100 ml @ 100 mls/hr IVPB Q8HR [facility] Rx#:[id number] Intake, IV Titration 161.789 0 Amount Diltiazem 125 mg In 88.667 Sodium Chloride 0.9% 100 ml @ 5 MG/HR 5 mls/hr IV .Q24H [facility] Rx#:[id number] Insulin Regular 100 unit 13.122 0 In Sodium Chloride 0.9% 100 ml @ Per Protocol IV .Q0M [facility] Rx#:[id number] Lactated Ringers 1,000 ml 60 @ 20 mls/hr IV .Q24H [facility] Rx#:[id number] Oral 550 Output: Chest Tube Drainage 125 Left Pleural/Mediastinal 125 Drainage 60 110 Left Lower Lateral Chest 50 110 Left Wrist 10 Urine 845 520 0 Other: Voiding Method Indwelling Catheter Urinal ABP, PAP, CO, CI - Last Documented Arterial Blood Pressure 109/69 Pulmonary Artery Pressure 17/6 Cardiac Output 7.2 Cardiac Index 3.1 - Constitutional General appearance: Present: no acute distress - Respiratory Respiratory: bilateral: diminished - Cardiovascular Rhythm: regular - Labs CBC & Chem 7: 05/30/19 06:47 05/30/19 06:47 Labs: Abnormal Lab Results - Last 24 Hours (Table) 05/29/19 05/29/19 05/29/19 Range/Units 09:00 11:04 12:07 RBC (4.30-5.90) m/uL Hgb (13.0-17.5) gm/dL Hct (39.0-53.0) % Glucose (74-99) mg/dL POC Glucose (mg/dL) 117 H 105 H 113 H (75-99) mg/dL Total Protein (6.3-8.2) g/dL Albumin (3.5-5.0) g/dL 05/29/19 05/29/19 05/29/19 Range/Units 15:26 22:14 23:09 RBC (4.30-5.90) m/uL Hgb (13.0-17.5) gm/dL Hct (39.0-53.0) % Glucose (74-99) mg/dL POC Glucose (mg/dL) 128 H 102 H 116 H (75-99) mg/dL Total Protein (6.3-8.2) g/dL Albumin (3.5-5.0) g/dL 05/29/19 05/30/19 05/30/19 Range/Units 23:57 01:04 02:07 RBC (4.30-5.90) m/uL Hgb (13.0-17.5) gm/dL Hct (39.0-53.0) % Glucose (74-99) mg/dL POC Glucose (mg/dL) 111 H 108 H 108 H (75-99) mg/dL Total Protein (6.3-8.2) g/dL Albumin (3.5-5.0) g/dL 05/30/19 05/30/19 05/30/19 Range/Units 03:21 04:07 05:04 RBC (4.30-5.90) m/uL Hgb (13.0-17.5) gm/dL Hct (39.0-53.0) % Glucose (74-99) mg/dL POC Glucose (mg/dL) 108 H 114 H 117 H (75-99) mg/dL Total Protein (6.3-8.2) g/dL Albumin (3.5-5.0) g/dL 05/30/19 05/30/19 05/30/19 Range/Units 06:05 06:47 06:47 RBC 4.20 L (4.30-5.90) m/uL Hgb 12.9 L (13.0-17.5) gm/dL Hct 37.1 L (39.0-53.0) % Glucose 104 H (74-99) mg/dL POC Glucose (mg/dL) 114 H (75-99) mg/dL Total Protein 5.6 L (6.3-8.2) g/dL Albumin 3.4 L (3.5-5.0) g/dL 05/30/19 Range/Units 06:59 RBC (4.30-5.90) m/uL Hgb (13.0-17.5) gm/dL Hct (39.0-53.0) % Glucose (74-99) mg/dL POC Glucose (mg/dL) 115 H (75-99) mg/dL Total Protein (6.3-8.2) g/dL Albumin (3.5-5.0) g/dL Assessment and Plan Assessment: Assessment #1 severe CAD and status post CABG #2 hypertension #3 dyslipidemia Plan #1 continue the current medical regimen including dual antiplatelet therapy and statin #2 increase the dose of metoprolol and decrease the dose of Norvasc #3 continue dual antiplatelet therapy #4 continue high intensity statin #5 follow-up with the patient
[2019-05-30] MEDS: IPRATROPIUM-ALBUTEROL 3 ML NEB INHALATION SCH ×4 (08:16→19:05)
[2019-05-30] MEDS: CHOLECALCIFEROL 1,000 UNIT TAB PO SCH (08:48)
[2019-05-30] MEDS: ASPIRIN 325 MG TAB PO SCH (08:50)
[2019-05-30] MEDS: GABAPENTIN 300 MG CAP PO SCH ×4 (08:50→21:08)
[2019-05-30] MEDS: CLOPIDOGREL 75 MG TAB PO SCH (08:50)
[2019-05-30] MEDS: ATORVASTATIN 40 MG TAB PO SCH (08:50)
[2019-05-30] MEDS: MONTELUKAST 10 MG TAB PO SCH (08:50)
[2019-05-30] MEDS: METOPROLOL TARTRATE 25 MG TAB PO SCH ×3 (08:51→23:21)
[2019-05-30] MEDS: HEPARIN SODIUM,PORCINE 5,000 UNIT/ML 1 ML VIAL SQ SCH ×3 (08:52→23:22)
[2019-05-30] MEDS: CYANOCOBALAMIN 500 MCG TAB PO SCH (08:52)
[2019-05-30] MEDS: TAMSULOSIN 0.4 MG CAP.ER.24H PO SCH (08:54)
[2019-05-30] MEDS: lamoTRIgine 100 MG TAB PO SCH (08:54)
--- NOTE | 2019-05-30 09:28 | XR ---
EXAMINATION TYPE: XR chest 1V portable DATE OF EXAM: 05/30/2019 COMPARISON: 05/29/2019 HISTORY: Postoperative cardiac surgery TECHNIQUE: Single frontal view of the chest is obtained. FINDINGS: Removal of the [place]-Michelle catheter. Redemonstration of left chest tube and mediastinal drai n. Sternotomy or surgical clips overlying mediastinum. Low lung volumes accentuating the cardiac silh ouette and pulmonary vasculature. Subsegmental basilar atelectasis, greater on the left. Stable cardi omegaly. No pneumothorax. IMPRESSION: Removal of the [place]-Michelle catheter. Low lung volumes.
--- NOTE | 2019-05-30 09:47 | P.PN ---
Subjective Progress Note Date: 05/30/19 Principal diagnosis: Severe double vessel coronary artery disease. Previous medical history of hypertension, hyperlipidemia, obstructive sleep apnea with home CPAP use, bipolar/depression, morbid obesity, fibromyalgia, and family history of premature coronary artery disease with father having myocardial infarction at 42 years old. POD #2 off-pump coronary artery bypass grafting 2 with the left internal mammary artery to the left anterior descending artery and left radial artery graft to the posterior descending coronary artery with endoscopic radial artery harvest and intraoperative transesophageal echocardiogram by anesthesia. The patient is currently sitting up in bed in the intensive care unit in no acute distress. He is currently in normal sinus rhythm, hemodynamically stable on no inotropes or pressors. Does complain of hip pain which is chronic for this patient, denies shortness of breath. Mediastinal left pleural chest tubes remained in place. [place]/Cordis, arterial line were discontinued yesterday, Rodas was discontinued this morning and patient has Sardi voided. No new concerns. Objective - Vital Signs Vital signs: Vital Signs Temp 98.2 F 05/30/19 08:00 Pulse 98 05/30/19 09:00 Resp 13 05/30/19 09:00 BP 108/61 05/30/19 09:00 Pulse Ox 92 L 05/30/19 09:00 Intake & Output 05/29/19 05/30/19 05/30/19 18:59 06:59 18:59 Intake Total 982.289 120 350 Output Total 1030 630 0 Balance -47.711 -510 350 Weight 104.1 kg 108.1 kg Intake: IV 270.5 120 10 CO/CI+pressure bags 69 Lactated Ringers 1,000 ml 100 120 10 @ 20 mls/hr IV .Q24H [facility] Rx#:[id number] Nitroglycerin-D5w Pmx 50 1.5 mg In Dextrose/Water 1 250ml.bag @ 5 MCG/MIN 1.5 mls/hr IV .Q24H [facility] Rx#: [id number] ceFAZolin 3 gm In Sodium 100 Chloride 0.9% 100 ml @ 100 mls/hr IVPB Q8HR [facility] Rx#:[id number] Intake, IV Titration 161.789 0 Amount Diltiazem 125 mg In 88.667 Sodium Chloride 0.9% 100 ml @ 5 MG/HR 5 mls/hr IV .Q24H [facility] Rx#:[id number] Insulin Regular 100 unit 13.122 0 In Sodium Chloride 0.9% 100 ml @ Per Protocol IV .Q0M [facility] Rx#:[id number] Lactated Ringers 1,000 ml 60 @ 20 mls/hr IV .Q24H [facility] Rx#:[id number] Oral 550 340 Output: Chest Tube Drainage 125 Left Pleural/Mediastinal 125 Drainage 60 110 Left Lower Lateral Chest 50 110 Left Wrist 10 Urine 845 520 0 Other: Voiding Method Indwelling Catheter Urinal Urinal ABP, PAP, CO, CI - Last Documented Arterial Blood Pressure 109/69 Pulmonary Artery Pressure 17/6 Cardiac Output 7.2 Cardiac Index 3.1 - Constitutional General appearance: Present: cooperative, no acute distress, obese - Respiratory Details: Lungs sounds diminished bilaterally. Respirations even, nonlabored. Currently on 4 L nasal cannula with oxygen saturation 94%. Able to achieve 1000 mL on his incentive spirometry. Mediastinal/left pleural chest tube to continuous wall suction, 80 mL serosanguineous drainage overnight, 300 mL in the last 24 hours, no air leaks present. - Cardiovascular Details: S1, S2 present. Regular rate and rhythm, sinus rhythm on telemetry. Sternum stable. Palpable peripheral pulses bilaterally. No edema present. No calf pain or tenderness noted. Heart hugger in place with patient demonstrating appropriate use. Antiembolism stockings, SCDs present. - Gastrointestinal Gastrointestinal Comment(s): Abdomen soft, nontender, nondistended, obese. Hypoactive bowel sounds present 4 quadrants. Tolerating clear liquids. Negative flatus. - Genitourinary Genitourinary Comment(s): Rodas discontinued midnight, patient has voided since early removal - Integumentary Integumentary Comment(s): Skin is warm and dry with evidence of good perfusion. Anterior chest incision well approximated and covered with dry intact dressing. Left radial artery harvest site well approximated. Left hand is warm, good cap refill, able to move hand and costumed character entertainer objects without difficulty. - Neurologic Neurologic: Present: CNII-XII intact - Musculoskeletal Musculoskeletal: Present: gait normal, strength equal bilaterally - Psychiatric Psychiatric: Present: A&O x's 3, appropriate affect, intact judgment & insight - Allied health notes Allied health notes reviewed: nursing - Labs CBC & Chem 7: 05/30/19 06:47 05/30/19 06:47 Labs: Abnormal Lab Results - Last 24 Hours (Table) 05/29/19 05/29/19 05/29/19 Range/Units 11:04 12:07 15:26 RBC (4.30-5.90) m/uL Hgb (13.0-17.5) gm/dL Hct (39.0-53.0) % Glucose (74-99) mg/dL POC Glucose (mg/dL) 105 H 113 H 128 H (75-99) mg/dL Total Protein (6.3-8.2) g/dL Albumin (3.5-5.0) g/dL 05/29/19 05/29/19 05/29/19 Range/Units 22:14 23:09 23:57 RBC (4.30-5.90) m/uL Hgb (13.0-17.5) gm/dL Hct (39.0-53.0) % Glucose (74-99) mg/dL POC Glucose (mg/dL) 102 H 116 H 111 H (75-99) mg/dL Total Protein (6.3-8.2) g/dL Albumin (3.5-5.0) g/dL 05/30/19 05/30/19 05/30/19 Range/Units 01:04 02:07 03:21 RBC (4.30-5.90) m/uL Hgb (13.0-17.5) gm/dL Hct (39.0-53.0) % Glucose (74-99) mg/dL POC Glucose (mg/dL) 108 H 108 H 108 H (75-99) mg/dL Total Protein (6.3-8.2) g/dL Albumin (3.5-5.0) g/dL 05/30/19 05/30/19 05/30/19 Range/Units 04:07 05:04 06:05 RBC (4.30-5.90) m/uL Hgb (13.0-17.5) gm/dL Hct (39.0-53.0) % Glucose (74-99) mg/dL POC Glucose (mg/dL) 114 H 117 H 114 H (75-99) mg/dL Total Protein (6.3-8.2) g/dL Albumin (3.5-5.0) g/dL 05/30/19 05/30/19 05/30/19 Range/Units 06:47 06:47 06:59 RBC 4.20 L (4.30-5.90) m/uL Hgb 12.9 L (13.0-17.5) gm/dL Hct 37.1 L (39.0-53.0) % Glucose 104 H (74-99) mg/dL POC Glucose (mg/dL) 115 H (75-99) mg/dL Total Protein 5.6 L (6.3-8.2) g/dL Albumin 3.4 L (3.5-5.0) g/dL - Imaging and Cardiology Chest x-ray: report reviewed, image reviewed Assessment and Plan Assessment: 1. Severe double vessel coronary artery disease, status post 2 vessel coronary artery bypass grafting 2. Hypertension 3. Hyperlipidemia 4. Obstructive sleep apnea with home CPAP use 5. Bipolar/depression 6. Morbid obesity 7. Fibromyalgia 8. Family history of premature coronary artery disease Plan: 1. Continue aspirin, statin, Plavix, beta amna therapy. Will increase beta amna therapy as tolerated. Will add lisinopril for afterload reduction when blood pressure will tolerate. 2. Continue Norvasc for radial artery spasm prophylaxis. 3. Wean O2 as tolerated. Encourage incentive spirometry use 10 times every hour while awake. 4. Increase activity, ambulate as tolerated. PT/OT/cardiac rehab following. 5. Bronchodilators per pulmonology. 6. Home CPAP management per pulmonology. 7. Pain control with current medication regimen. 8. Insulin management per primary care service. 9. Will discontinue mediastinal chest tube, likely will also discontinue left pleural chest tube. 10. Will monitor daily labs, chest x-rays. Elective replacement per protocol. No transfusion. 11. GI/DVT prophylaxis. 12. Will place transfer orders for 3 S. cardiac stepdown unit. May transfer when bed available. 13. Discharge planning in progress. Anticipate discharge to home with home care in 48 hours. 14. More recommendations based on patient's progress. Time with Patient: Greater than 30
[2019-05-30] MEDS ORDERED: FUROSEMIDE 10 MG/ML 2 ML VIAL IV ONE (10:05)
[2019-05-30] MEDS ORDERED: amLODIPine 5 MG TAB PO SCH (12:00)
[2019-05-30] MEDS: amLODIPine 2.5 MG TAB PO SCH (12:27)
[2019-05-30 12:34] LABS: Glucose,Whole Blood 97 mg/dL (75-99)
--- NOTE | 2019-05-30 15:04 | P.PN ---
Subjective Progress Note Date: 05/30/19 54-year-old female patient who presented with shortness of breath and chest pain and the patient was found to have a positive stress test. Upon further investigation the patient was found to have severe two-vessel coronary artery disease with complete occlusion of the LAD and filling was from collaterals and the patient also had severe disease involving the right coronary artery system. Based on this, coronary artery bypass surgery was recommended and the patient underwent an off-pump 2 vessel bypass surgery with STYLES to LAD and radial artery graft to PDA. Estimated blood loss was 100 mL. The patient is currently in the intensive.. The patient is intubated on a mechanical ventilator. The patient is hemodynamically doing well. Pulmonary artery pressures are 34/24 mmHg. CVP is at 18. The patient's has a cardiac output of 4.2 and an index of 2.0. The patient a mechanical ventilator in assist control mode and the patient is currently at the rate of 12 with a tidal volume of 500 and FiO2 100% and a PEEP of 10. Because the pending for now. Chest x-ray shows cardiomegaly. The media stinal chest tube and the left pleural chest tube are both in place. The patient is [place]-Michelle catheter in place. ET tube is in a good location and the patient is intubated by #8.5 ET tube. The patient has a pleural and a mediastinal chest tube. Output is minimal for now and there is no evidence of any air leak. The patient is producing adequate amount of urine output. The patient on 5 g the left of nitroglycerin drip and Cardizem drip at 5 mg an hour. All of the surgical incision dry clean and intact. The patient on propofol for sedation and is calm and comfortable. No other significant events over this surgery. The patient has obstructive sleep apnea. The patient utilizes a CPAP on outpatient basis. His preop FEV1 is 78% of predicted. On today's evaluation of a 2018 the patient is extubated and the patient is awake and alert doing well without any major complaints. Noted the patient was extubated. Hours after he arrived to the ICU. He was briefly given BiPAP and c urrently is on oxygen by nasal cannula. Cardiac output is up to 4.6. He has still a Cardizem drip at 5 mg an hour that was transitioned to Norvasc. The patient was taken off the nitroglycerin drip. He is on insulin at 1 unit an hour. There is no evidence of air leak. Output from the chest tubes have been minimal for now and the chest that showed adequate expansion of both lungs without evidence of any pneumothorax. He is using incentive spirometer. No other concerns for now. No inotropes. He is postop day #1. On 05/30/2019, the patient is postop day #2. He is doing extremely well. Output from the chest tubes are minimal and the patient's chest tubes were removed today. Sternum stable clean and intact. The patient is hemodynamically stable. The [place]-Michelle catheter was removed. He is using incentive spirometer. He is ambulating. No nausea. No vomiting. No abdominal pain. No chest pain. Sternum stable clean and intact. Cardiac rhythm is sinus. The patient utilizes a CPAP machine. He was able to bring in his CPAP unit and his CPAP is set at a pressure of 12 cm of water with excellent compliance he noted on his data. Objective - Vital Signs Vital signs: Vital Signs Temp 98.8 F 05/30/19 12:00 Pulse 101 H 05/30/19 13:02 Resp 24 05/30/19 13:00 BP 113/73 05/30/19 13:00 Pulse Ox 97 05/30/19 13:00 Intake & Output 05/29/19 05/30/19 05/30/19 18:59 06:59 18:59 Intake Total 982.289 120 500 Output Total 1030 630 200 Balance -47.711 -510 300 Weight 104.1 kg 108.1 kg Intake: IV 270.5 120 10 CO/CI+pressure bags 69 Lactated Ringers 1,000 ml 100 120 10 @ 20 mls/hr IV .Q24H [facility] Rx#:[id number] Nitroglycerin-D5w Pmx 50 1.5 mg In Dextrose/Water 1 250ml.bag @ 5 MCG/MIN 1.5 mls/hr IV .Q24H [facility] Rx#: [id number] ceFAZolin 3 gm In Sodium 100 Chloride 0.9% 100 ml @ 100 mls/hr IVPB Q8HR [facility] Rx#:[id number] Intake, IV Titration 161.789 0 Amount Diltiazem 125 mg In 88.667 Sodium Chloride 0.9% 100 ml @ 5 MG/HR 5 mls/hr IV .Q24H [facility] Rx#:[id number] Insulin Regular 100 unit 13.122 0 In Sodium Chloride 0.9% 100 ml @ Per Protocol IV .Q0M [facility] Rx#:[id number] Lactated Ringers 1,000 ml 60 @ 20 mls/hr IV .Q24H [facility] Rx#:[id number] Oral 550 490 Output: Chest Tube Drainage 125 Left Pleural/Mediastinal 125 Drainage 60 110 Left Lower Lateral Chest 50 110 Left Wrist 10 Urine 845 520 200 Other: Voiding Method Indwelling Catheter Urinal Urinal # Voids 400 ABP, PAP, CO, CI - Last Documented Arterial Blood Pressure 109/69 Pulmonary Artery Pressure 17/6 Cardiac Output 7.2 Cardiac Index 3.1 - Exam - Constitutional General appearance: Present: cooperative, no acute distress, obese - Respiratory Details: Lungs sounds diminished bilaterally. Respirations even, nonlabored. Currently on 4 L nasal cannula with oxygen saturation 94%. Able to achieve 1000 mL on his incentive spirometry. Mediastinal/left pleural chest tube to continuous wall suction, 80 mL serosanguineous drainage overnight, 300 mL in the last 24 hours, no air leaks present. - Cardiovascular Details: S1, S2 present. Regular rate and rhythm, sinus rhythm on telemetry. Sternum stable. Palpable peripheral pulses bilaterally. No edema present. No calf pain or tenderness noted. Heart hugger in place with patient demonstrating appropriate use. Antiembolism stockings, SCDs present. - Gastrointestinal Gastrointestinal Comment(s): Abdomen soft, nontender, nondistended, obese. Hypoactive bowel sounds present 4 quadrants. Tolerating clear liquids. Negative flatus. - Genitourinary Genitourinary Comment(s): Rodas discontinued midnight, patient has voided since early removal - Integumentary Integumentary Comment(s): Skin is warm and dry with evidence of good perfusion. Anterior chest incision well approximated and covered with dry intact dressing. Left radial artery harvest site well approximated. Left hand is warm, good cap refill, able to move hand and jailor objects without difficulty. - Neurologic Neurologic: Present: CNII-XII intact - Musculoskeletal Musculoskeletal: Present: gait normal, strength equal bilaterally - Psychiatric Psychiatric: Present: A&O x's 3, appropriate affect, intact judgment & insight - Labs CBC & Chem 7: 05/30/19 06:47 05/30/19 06:47 Labs: Abnormal Lab Results - Last 24 Hours (Table) 05/29/19 05/29/19 05/29/19 Range/Units 15:26 22:14 23:09 RBC (4.30-5.90) m/uL Hgb (13.0-17.5) gm/dL Hct (39.0-53.0) % Glucose (74-99) mg/dL POC Glucose (mg/dL) 128 H 102 H 116 H (75-99) mg/dL Total Protein (6.3-8.2) g/dL Albumin (3.5-5.0) g/dL 05/29/19 05/30/19 05/30/19 Range/Units 23:57 01:04 02:07 RBC (4.30-5.90) m/uL Hgb (13.0-17.5) gm/dL Hct (39.0-53.0) % Glucose (74-99) mg/dL POC Glucose (mg/dL) 111 H 108 H 108 H (75-99) mg/dL Total Protein (6.3-8.2) g/dL Albumin (3.5-5.0) g/dL 05/30/19 05/30/19 05/30/19 Range/Units 03:21 04:07 05:04 RBC (4.30-5.90) m/uL Hgb (13.0-17.5) gm/dL Hct (39.0-53.0) % Glucose (74-99) mg/dL POC Glucose (mg/dL) 108 H 114 H 117 H (75-99) mg/dL Total Protein (6.3-8.2) g/dL Albumin (3.5-5.0) g/dL 05/30/19 05/30/19 05/30/19 Range/Units 06:05 06:47 06:47 RBC 4.20 L (4.30-5.90) m/uL Hgb 12.9 L (13.0-17.5) gm/dL Hct 37.1 L (39.0-53.0) % Glucose 104 H (74-99) mg/dL POC Glucose (mg/dL) 114 H (75-99) mg/dL Total Protein 5.6 L (6.3-8.2) g/dL Albumin 3.4 L (3.5-5.0) g/dL 05/30/19 Range/Units 06:59 RBC (4.30-5.90) m/uL Hgb (13.0-17.5) gm/dL Hct (39.0-53.0) % Glucose (74-99) mg/dL POC Glucose (mg/dL) 115 H (75-99) mg/dL Total Protein (6.3-8.2) g/dL Albumin (3.5-5.0) g/dL Assessment and Plan Plan: 1 severe coronary artery disease, symptomatic with symptoms of chest pain and shortness of breath. The patient underwent two-vessel bypass surgery with STYLES to LAD and radial artery graft to PDA. The patient is postop day #2. The patient is hemodynamically stable. 2 post thoracotomy, the patient was extubated without any major difficulties and the patient currently is in oxygen by nasal cannula. Chest tubes are still in place. Output from the chest tube is minimal. The patient had a chest x-ray showing no evidence of pneumothorax or any significant abnormalities. 3 severe double vessel coronary artery disease 4 obesity with a BMI of 42.3 5 obstructive sleep apnea and the patient has been a long-time CPAPer 6 hypertension 7 hyperlipidemia Plan We will the chest tubes today. Continue using incentive spirometer. Continue aspirin and Plavix and metoprolol and Norvasc was also added for radial artery spasm prophylaxis. Ambulate in the hallway. I was able to check a patient's CPAP unit which is in a pressure of 12 cm of water. The patient will be asked to use his CPAP overnight in hospital as long as his saturation remains above 90%. Continue ambulation. We'll continue to follow.
[2019-05-30 16:52] LABS: Glucose,Whole Blood 125 mg/dL (75-99)
[2019-05-30] MEDS: INSULIN ASPART (NovoLOG) 100 UNIT/ML VIAL SQ SCH ×2 (16:56→21:07)
--- NOTE | 2019-05-30 17:40 | P.PN ---
Subjective 54-year-old pleasant gentleman is status post cannot remove his grafting postoperative day one. Patient is off Cardizem patient is offClevedipine. Patient still has mediastinal and left chest tubes draining very minimally on nasal cannula oxygen.patient is still on insulin drip 05/30/2019 Patient the chest tubes are out patient is clinically doing well will be transferred out of the ICU today Constitutional: Denied any fatigue denied any fever. Cardio vascular: denied any chest pain, palpitations Gastrointestinal denied any nausea vomiting Pulmonary: Denied any shortness of breath cough Neurologic denied any new focal deficits All inpatient medications were reviewed and appropriate changes in these medications as dictated in the interval history and assessment and plan. Objective - Vital Signs Vital signs: Vital Signs Temp 98.6 F 05/30/19 16:00 Pulse 98 05/30/19 16:00 Resp 18 05/30/19 16:00 BP 109/72 05/30/19 16:00 Pulse Ox 93 L 05/30/19 16:00 Intake & Output 05/29/19 05/30/19 05/30/19 18:59 06:59 18:59 Intake Total 982.289 120 750 Output Total 1030 630 350 Balance -47.711 -510 400 Weight 104.1 kg 108.1 kg Intake: IV 270.5 120 10 CO/CI+pressure bags 69 Lactated Ringers 1,000 ml 100 120 10 @ 20 mls/hr IV .Q24H [facility] Rx#:[id number] Nitroglycerin-D5w Pmx 50 1.5 mg In Dextrose/Water 1 250ml.bag @ 5 MCG/MIN 1.5 mls/hr IV .Q24H [facility] Rx#: [id number] ceFAZolin 3 gm In Sodium 100 Chloride 0.9% 100 ml @ 100 mls/hr IVPB Q8HR [facility] Rx#:[id number] Intake, IV Titration 161.789 0 Amount Diltiazem 125 mg In 88.667 Sodium Chloride 0.9% 100 ml @ 5 MG/HR 5 mls/hr IV .Q24H [facility] Rx#:[id number] Insulin Regular 100 unit 13.122 0 In Sodium Chloride 0.9% 100 ml @ Per Protocol IV .Q0M [facility] Rx#:[id number] Lactated Ringers 1,000 ml 60 @ 20 mls/hr IV .Q24H [facility] Rx#:[id number] Oral 550 740 Output: Chest Tube Drainage 125 Left Pleural/Mediastinal 125 Drainage 60 110 Left Lower Lateral Chest 50 110 Left Wrist 10 Urine 845 520 350 Other: Voiding Method Indwelling Catheter Urinal Urinal # Voids 400 ABP, PAP, CO, CI - Last Documented Arterial Blood Pressure 109/69 Pulmonary Artery Pressure 17/6 Cardiac Output 7.2 Cardiac Index 3.1 - Exam PHYSICAL EXAMINATION: GENERAL: The patient is alert and oriented x3, not in any acute distress. Well developed, well nourished. chest tubes as mentioned above HEENT: Pupils are round and equally reacting to light. EOMI. No scleral icterus. No conjunctival pallor. Normocephalic, atraumatic. No pharyngeal erythema. No thyromegaly. CARDIOVASCULAR: S1 and S2 present. No murmurs, rubs, or gallops. PULMONARY: Chest is clear to auscultation, no wheezing or crackles. ABDOMEN: Soft, nontender, nondistended, normoactive bowel sounds. No palpable organomegaly. MUSCULOSKELETAL: No joint swelling or deformity. EXTREMITIES: No cyanosis, clubbing, or pedal edema. NEUROLOGICAL: Gross neurological examination did not reveal any focal deficits. SKIN: No rashes. - Labs CBC & Chem 7: 05/30/19 06:47 05/30/19 06:47 Labs: Abnormal Lab Results - Last 24 Hours (Table) 05/29/19 05/29/19 05/29/19 Range/Units 22:14 23:09 23:57 RBC (4.30-5.90) m/uL Hgb (13.0-17.5) gm/dL Hct (39.0-53.0) % Glucose (74-99) mg/dL POC Glucose (mg/dL) 102 H 116 H 111 H (75-99) mg/dL Total Protein (6.3-8.2) g/dL Albumin (3.5-5.0) g/dL 05/30/19 05/30/19 05/30/19 Range/Units 01:04 02:07 03:21 RBC (4.30-5.90) m/uL Hgb (13.0-17.5) gm/dL Hct (39.0-53.0) % Glucose (74-99) mg/dL POC Glucose (mg/dL) 108 H 108 H 108 H (75-99) mg/dL Total Protein (6.3-8.2) g/dL Albumin (3.5-5.0) g/dL 05/30/19 05/30/19 05/30/19 Range/Units 04:07 05:04 06:05 RBC (4.30-5.90) m/uL Hgb (13.0-17.5) gm/dL Hct (39.0-53.0) % Glucose (74-99) mg/dL POC Glucose (mg/dL) 114 H 117 H 114 H (75-99) mg/dL Total Protein (6.3-8.2) g/dL Albumin (3.5-5.0) g/dL 05/30/19 05/30/19 05/30/19 Range/Units 06:47 06:47 06:59 RBC 4.20 L (4.30-5.90) m/uL Hgb 12.9 L (13.0-17.5) gm/dL Hct 37.1 L (39.0-53.0) % Glucose 104 H (74-99) mg/dL POC Glucose (mg/dL) 115 H (75-99) mg/dL Total Protein 5.6 L (6.3-8.2) g/dL Albumin 3.4 L (3.5-5.0) g/dL 05/30/19 Range/Units 16:46 RBC (4.30-5.90) m/uL Hgb (13.0-17.5) gm/dL Hct (39.0-53.0) % Glucose (74-99) mg/dL POC Glucose (mg/dL) 125 H (75-99) mg/dL Total Protein (6.3-8.2) g/dL Albumin (3.5-5.0) g/dL Assessment and Plan Plan: 10 coronary artery disease status post CABG continue with the above-mentioned management. -Postoperative respiratory failure status post extubation on nasal cannula oxygen -Obesity -Obstructive sleep apnea -Hypertension -Hyperlipidemia Plan is to continue present medications continue with IV insulin which can be switched to sliding scale insulin day after we continue to follow
[2019-05-30 20:36] LABS: Glucose,Whole Blood 141 mg/dL (75-99)
[2019-05-30] MEDS: SENNOSIDES-DOCUSATE SODIUM 1 EACH TAB PO SCH (21:08)
[2019-05-30] MEDS: QUEtiapine 25 MG TAB PO SCH (21:08)
[2019-05-30] MEDS: VITAMIN E (DL,TOCOPHERYL ACET) 400 UNIT CAP PO SCH (21:09)
[2019-05-31 02:01] LABS: Glucose,Whole Blood 106 mg/dL (75-99)
[2019-05-31] MEDS: KETOROLAC 30 MG/ML 1 ML VIAL IVP SCH (06:24)
[2019-05-31] MEDS: PANTOPRAZOLE 40 MG TABLET PO SCH (06:24)
[2019-05-31] MEDS: INSULIN ASPART (NovoLOG) 100 UNIT/ML VIAL SQ SCH ×4 (06:25→21:04)
[2019-05-31 06:26] LABS: Glucose,Whole Blood 100 mg/dL (75-99)
[2019-05-31 06:45] LABS: HCT 33.7 % (39.0-53.0); HGB 11.6 gm/dL (13.0-17.5); MCH 30.5 pg (25.0-35.0); MCHC 34.6 g/dL (31.0-37.0); MCV 88.2 fL (80.0-100.0); Mean Platelet Volume 7.1; Platelet Count 184 k/uL (150-450); RBC 3.82 m/uL (4.30-5.90); RDW 13.5 % (11.5-15.5); WBC 9.8 k/uL (3.8-10.6)
--- NOTE | 2019-05-31 07:04 | XR ---
EXAMINATION TYPE: XR chest 2V DATE OF EXAM: 05/31/2019 HISTORY: post chest tube removal, post CV surgery. REFERENCE: Previous study dated 05/30/2019. FINDINGS: The patient's left pleural drain has been removed. There is atelectatic change present at b oth lung bases. The patient has not taken a good inspiration. The heart is enlarged. No pneumothorax is evident. IMPRESSION: 1. LIMITED EXAMINATION DUE TO POOR INSPIRATION. 2. BIBASILAR ATELECTASIS. 3. CARDIOMEGALY. 4. NO EVIDENCE OF PNEUMOTHORAX FOLLOWING CHEST TUBE REMOVAL.
[2019-05-31] MEDS: IPRATROPIUM-ALBUTEROL 3 ML NEB INHALATION SCH ×4 (07:38→20:28)
[2019-05-31] MEDS: METOPROLOL TARTRATE 25 MG TAB PO SCH ×3 (08:43→23:28)
[2019-05-31] MEDS: DESVENLAFAXINE SUCCINATE 50 MG TAB.ER.24H PO SCH (08:48)
[2019-05-31] MEDS: MONTELUKAST 10 MG TAB PO SCH (08:48)
[2019-05-31] MEDS: CYANOCOBALAMIN 500 MCG TAB PO SCH (08:48)
[2019-05-31] MEDS: CLOPIDOGREL 75 MG TAB PO SCH (08:48)
[2019-05-31] MEDS: CHOLECALCIFEROL 1,000 UNIT TAB PO SCH (08:48)
[2019-05-31] MEDS: lamoTRIgine 100 MG TAB PO SCH (08:48)
[2019-05-31] MEDS: ATORVASTATIN 40 MG TAB PO SCH (08:49)
[2019-05-31] MEDS: ASPIRIN 325 MG TAB PO SCH (08:49)
[2019-05-31] MEDS: HEPARIN SODIUM,PORCINE 5,000 UNIT/ML 1 ML VIAL SQ SCH ×3 (08:49→23:28)
[2019-05-31] MEDS: GABAPENTIN 300 MG CAP PO SCH ×4 (08:49→20:37)
[2019-05-31] MEDS: TAMSULOSIN 0.4 MG CAP.ER.24H PO SCH (08:49)
--- NOTE | 2019-05-31 10:44 | P.PN ---
Subjective 54-year-old pleasant gentleman is status post cannot remove his grafting postoperative day one. Patient is off Cardizem patient is offClevedipine. Patient still has mediastinal and left chest tubes draining very minimally on nasal cannula oxygen.patient is still on insulin drip 05/30/2019 Patient the chest tubes are out patient is clinically doing well will be transferred out of the ICU today 05/31/2018 Patient is clinically doing well overnight events no further recommendations from medicine perspective today Constitutional: Denied any fatigue denied any fever. Cardio vascular: denied any chest pain, palpitations Gastrointestinal denied any nausea vomiting Pulmonary: Denied any shortness of breath cough Neurologic denied any new focal deficits All inpatient medications were reviewed and appropriate changes in these medications as dictated in the interval history and assessment and plan. Objective - Vital Signs Vital signs: Vital Signs Temp 98.1 F 05/31/19 08:00 Pulse 103 H 05/31/19 08:00 Resp 18 05/31/19 08:00 BP 89/58 05/31/19 08:00 Pulse Ox 95 05/31/19 08:00 Intake & Output 05/30/19 05/31/19 05/31/19 18:59 06:59 18:59 Intake Total 750 500 360 Output Total 350 200 Balance 400 300 360 Weight 124.1 kg Intake: IV 10 Lactated Ringers 1,000 ml 10 @ 20 mls/hr IV .Q24H [facility] Rx#:[id number] Oral 740 500 360 Output: Urine 350 200 Other: Voiding Method Urinal Toilet Toilet Urinal Urinal # Voids 400 1 1 # Bowel Movements 1 ABP, PAP, CO, CI - Last Documented Arterial Blood Pressure 109/69 Pulmonary Artery Pressure 17/6 Cardiac Output 7.2 Cardiac Index 3.1 - Exam PHYSICAL EXAMINATION: GENERAL: The patient is alert and oriented x3, not in any acute distress. Well developed, well nourished. chest tubes as mentioned above HEENT: Pupils are round and equally reacting to light. EOMI. No scleral icterus. No conjunctival pallor. Normocephalic, atraumatic. No pharyngeal erythema. No thyromegaly. CARDIOVASCULAR: S1 and S2 present. No murmurs, rubs, or gallops. PULMONARY: Chest is clear to auscultation, no wheezing or crackles. ABDOMEN: Soft, nontender, nondistended, normoactive bowel sounds. No palpable organomegaly. MUSCULOSKELETAL: No joint swelling or deformity. EXTREMITIES: No cyanosis, clubbing, or pedal edema. NEUROLOGICAL: Gross neurological examination did not reveal any focal deficits. SKIN: No rashes. - Labs CBC & Chem 7: 05/31/19 06:10 05/31/19 06:10 Labs: Abnormal Lab Results - Last 24 Hours (Table) 05/30/19 05/30/19 05/31/19 Range/Units 16:46 20:35 02:00 RBC (4.30-5.90) m/uL Hgb (13.0-17.5) gm/dL Hct (39.0-53.0) % Sodium (137-145) mmol/L BUN (9-20) mg/dL Creatinine (0.66-1.25) mg/dL POC Glucose (mg/dL) 125 H 141 H 106 H (75-99) mg/dL 05/31/19 05/31/19 05/31/19 Range/Units 06:10 06:10 06:25 RBC 3.82 L (4.30-5.90) m/uL Hgb 11.6 L (13.0-17.5) gm/dL Hct 33.7 L (39.0-53.0) % Sodium 135 L (137-145) mmol/L BUN 25 H (9-20) mg/dL Creatinine 1.30 H (0.66-1.25) mg/dL POC Glucose (mg/dL) 100 H (75-99) mg/dL Assessment and Plan Plan: 10 coronary artery disease status post CABG continue with the above-mentioned management. -Postoperative respiratory failure status post extubation on nasal cannula oxygen -Obesity -Obstructive sleep apnea -Hypertension -Hyperlipidemia Plan is to continue present medications continue with IV insulin which can be switched to sliding scale insulin day after we continue to follow
--- NOTE | 2019-05-31 11:06 | P.PN ---
Subjective Progress Note Date: 05/31/19 Principal diagnosis: Severe double vessel coronary artery disease. Previous medical history of hypertension, hyperlipidemia, obstructive sleep apnea with home CPAP use, bipolar/depression, morbid obesity, fibromyalgia, and family history of premature coronary artery disease with father having myocardial infarction at 42 years old. POD #3 off-pump coronary artery bypass grafting 2 with the left internal mammary artery to the left anterior descending artery and left radial artery graft to the posterior descending coronary artery with endoscopic radial artery harvest and intraoperative transesophageal echocardiogram by anesthesia. The patient is currently sitting up in the recliner on the cardiac stepdown unit in no acute distress. He is currently in normal sinus rhythm, hemodynamically stable. Denies chest pain, denies shortness of breath. Has ambulated in the [place] and taken first shower. No new concerns. Objective - Vital Signs Vital signs: Vital Signs Temp 98.1 F 05/31/19 08:00 Pulse 103 H 05/31/19 08:00 Resp 18 05/31/19 08:00 BP 89/58 05/31/19 08:00 Pulse Ox 95 05/31/19 08:00 Intake & Output 05/30/19 05/31/19 05/31/19 18:59 06:59 18:59 Intake Total 750 500 360 Output Total 350 200 Balance 400 300 360 Weight 124.1 kg Intake: IV 10 Lactated Ringers 1,000 ml 10 @ 20 mls/hr IV .Q24H [facility] Rx#:[id number] Oral 740 500 360 Output: Urine 350 200 Other: Voiding Method Urinal Toilet Toilet Urinal Urinal # Voids 400 1 1 # Bowel Movements 1 ABP, PAP, CO, CI - Last Documented Arterial Blood Pressure 109/69 Pulmonary Artery Pressure 17/6 Cardiac Output 7.2 Cardiac Index 3.1 - Constitutional General appearance: Present: cooperative, no acute distress, obese - Respiratory Details: Lungs sounds diminished bilaterally. Respirations even, nonlabored. Currently on 2 L nasal cannula with oxygen saturation 95%. Able to achieve 1000 mL on his incentive spirometry. Strong, productive cough. - Cardiovascular Details: S1, S2 present. Regular rate and rhythm, sinus rhythm on telemetry. Sternum stable. Palpable peripheral pulses bilaterally. No edema present. No calf pain or tenderness noted. Heart hugger in place with patient demonstrating appropriate use. Antiembolism stockings, SCDs present. - Gastrointestinal Gastrointestinal Comment(s): Abdomen soft, nontender, nondistended, obese. Active bowel sounds present 4 quadrants. Tolerating full liquids. Positive bowel movement. - Genitourinary Genitourinary Comment(s): Continues to void clear, yellow urine. - Integumentary Integumentary Comment(s): Skin is warm and dry with evidence of good perfusion. Anterior chest incision well approximated and covered with dry intact dressing. Left radial artery harvest site well approximated. Left hand is warm, good cap refill, able to move hand and seam closer objects without difficulty. - Neurologic Neurologic: Present: CNII-XII intact - Musculoskeletal Musculoskeletal: Present: gait normal, strength equal bilaterally - Psychiatric Psychiatric: Present: A&O x's 3, appropriate affect, intact judgment & insight - Allied health notes Allied health notes reviewed: nursing - Labs CBC & Chem 7: 05/31/19 06:10 05/31/19 06:10 Labs: Abnormal Lab Results - Last 24 Hours (Table) 05/30/19 05/30/19 05/31/19 Range/Units 16:46 20:35 02:00 RBC (4.30-5.90) m/uL Hgb (13.0-17.5) gm/dL Hct (39.0-53.0) % Sodium (137-145) mmol/L BUN (9-20) mg/dL Creatinine (0.66-1.25) mg/dL POC Glucose (mg/dL) 125 H 141 H 106 H (75-99) mg/dL 05/31/19 05/31/19 05/31/19 Range/Units 06:10 06:10 06:25 RBC 3.82 L (4.30-5.90) m/uL Hgb 11.6 L (13.0-17.5) gm/dL Hct 33.7 L (39.0-53.0) % Sodium 135 L (137-145) mmol/L BUN 25 H (9-20) mg/dL Creatinine 1.30 H (0.66-1.25) mg/dL POC Glucose (mg/dL) 100 H (75-99) mg/dL - Imaging and Cardiology Chest x-ray: report reviewed, image reviewed Assessment and Plan Assessment: 1. Severe double vessel coronary artery disease, status post 2 vessel coronary artery bypass grafting 2. Hypertension 3. Hyperlipidemia 4. Obstructive sleep apnea with home CPAP use 5. Bipolar/depression 6. Morbid obesity 7. Fibromyalgia 8. Family history of premature coronary artery disease Plan: 1. Continue aspirin, statin, Plavix, beta amna therapy. Will increase beta amna therapy as tolerated. Will add lisinopril for afterload reduction when blood pressure will tolerate. 2. Continue Norvasc for radial artery spasm prophylaxis. 3. Wean O2 as tolerated. Encourage incentive spirometry use 10 times every hour while awake. 4. Increase activity, ambulate as tolerated. PT/OT/cardiac rehab following. 5. Bronchodilators per pulmonology. 6. Home CPAP management per pulmonology. 7. Pain control with current medication regimen. 8. Insulin management per primary care service. 9. Will monitor daily labs, chest x-rays. Elective replacement per protocol. No transfusion. 10. GI/DVT prophylaxis. 11. Discharge planning in progress. Anticipate discharge to home with home care in 24-48 hours. 12. More recommendations based on patient's progress. Time with Patient: Greater than 30
[2019-05-31 11:54] LABS: Glucose,Whole Blood 89 mg/dL (75-99)
--- NOTE | 2019-05-31 12:12 | P.PN ---
Subjective Progress Note Date: 05/31/19 54-year-old female patient who presented with shortness of breath and chest pain and the patient was found to have a positive stress test. Upon further investigation the patient was found to have severe two-vessel coronary artery disease with complete occlusion of the LAD and filling was from collaterals and the patient also had severe disease involving the right coronary artery system. Based on this, coronary artery bypass surgery was recommended and the patient underwent an off-pump 2 vessel bypass surgery with STYLES to LAD and radial artery graft to PDA. Estimated blood loss was 100 mL. The patient is currently in the intensive.. The patient is intubated on a mechanical ventilator. The patient is hemodynamically doing well. Pulmonary artery pressures are 34/24 mmHg. CVP is at 18. The patient's has a cardiac output of 4.2 and an index of 2.0. The patient a mechanical ventilator in assist control mode and the patient is currently at the rate of 12 with a tidal volume of 500 and FiO2 100% and a PEEP of 10. Because the pending for now. Chest x-ray shows cardiomegaly. The media stinal chest tube and the left pleural chest tube are both in place. The patient is [place]-Michelle catheter in place. ET tube is in a good location and the patient is intubated by #8.5 ET tube. The patient has a pleural and a mediastinal chest tube. Output is minimal for now and there is no evidence of any air leak. The patient is producing adequate amount of urine output. The patient on 5 g the left of nitroglycerin drip and Cardizem drip at 5 mg an hour. All of the surgical incision dry clean and intact. The patient on propofol for sedation and is calm and comfortable. No other significant events over this surgery. The patient has obstructive sleep apnea. The patient utilizes a CPAP on outpatient basis. His preop FEV1 is 78% of predicted. On today's evaluation of a 2018 the patient is extubated and the patient is awake and alert doing well without any major complaints. Noted the patient was extubated. Hours after he arrived to the ICU. He was briefly given BiPAP and c urrently is on oxygen by nasal cannula. Cardiac output is up to 4.6. He has still a Cardizem drip at 5 mg an hour that was transitioned to Norvasc. The patient was taken off the nitroglycerin drip. He is on insulin at 1 unit an hour. There is no evidence of air leak. Output from the chest tubes have been minimal for now and the chest that showed adequate expansion of both lungs without evidence of any pneumothorax. He is using incentive spirometer. No other concerns for now. No inotropes. He is postop day #1. On 05/30/2019, the patient is postop day #2. He is doing extremely well. Output from the chest tubes are minimal and the patient's chest tubes were removed today. Sternum stable clean and intact. The patient is hemodynamically stable. The [place]-Michelle catheter was removed. He is using incentive spirometer. He is ambulating. No nausea. No vomiting. No abdominal pain. No chest pain. Sternum stable clean and intact. Cardiac rhythm is sinus. The patient utilizes a CPAP machine. He was able to bring in his CPAP unit and his CPAP is set at a pressure of 12 cm of water with excellent compliance he noted on his data. On 05/31/2019 patient is postop day #3. Doing extremely well. Chest tubes have been removed. He is on room air oxygen. Using incentive spirometer. Using his CPAP overnight. Cardiac rhythm is sinus. Producing adequate amount of urine output. His emanating in the hallway. No nausea or vomiting or abdominal pain. No chest pain. The patient's white cell count is at 9.8. Creatinine is at 1.3. Objective - Vital Signs Vital signs: Vital Signs Temp 97.7 F 05/31/19 11:11 Pulse 100 05/31/19 11:53 Resp 18 05/31/19 11:11 BP 94/66 05/31/19 11:11 Pulse Ox 93 L 05/31/19 11:11 Intake & Output 05/30/19 05/31/19 05/31/19 18:59 06:59 18:59 Intake Total 750 500 360 Output Total 350 200 Balance 400 300 360 Weight 124.1 kg Intake: IV 10 Lactated Ringers 1,000 ml 10 @ 20 mls/hr IV .Q24H [facility] Rx#:[id number] Oral 740 500 360 Output: Urine 350 200 Other: Voiding Method Urinal Toilet Toilet Urinal Urinal # Voids 400 1 1 # Bowel Movements 1 ABP, PAP, CO, CI - Last Documented Arterial Blood Pressure 109/69 Pulmonary Artery Pressure 17/6 Cardiac Output 7.2 Cardiac Index 3.1 - Exam - Constitutional General appearance: Present: cooperative, no acute distress, obese - Respiratory Details: Lungs sounds diminished bilaterally. Respirations even, nonlabored. Currently on 2 L nasal cannula with oxygen saturation 95%. Able to achieve 1000 mL on his incentive spirometry. Strong, productive cough. - Cardiovascular Details: S1, S2 present. Regular rate and rhythm, sinus rhythm on telemetry. Sternum stable. Palpable peripheral pulses bilaterally. No edema present. No calf pain or tenderness noted. Heart hugger in place with patient demonstrating appropriate use. Antiembolism stockings, SCDs present. - Gastrointestinal Gastrointestinal Comment(s): Abdomen soft, nontender, nondistended, obese. Active bowel sounds present 4 quadrants. Tolerating full liquids. Positive bowel movement. - Genitourinary Genitourinary Comment(s): Continues to void clear, yellow urine. - Integumentary Integumentary Comment(s): Skin is warm and dry with evidence of good perfusion. Anterior chest incision well approximated and covered with dry intact dressing. Left radial artery harvest site well approximated. 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 - Neurologic Neurologic: Present: CNII-XII intact - Musculoskeletal Musculoskeletal: Present: gait normal, strength equal bilaterally - Psychiatric Psychiatric: Present: A&O x's 3, appropriate affect, intact judgment & insight - Labs CBC & Chem 7: 05/31/19 06:10 05/31/19 06:10 Labs: Abnormal Lab Results - Last 24 Hours (Table) 05/30/19 05/30/19 05/31/19 Range/Units 16:46 20:35 02:00 RBC (4.30-5.90) m/uL Hgb (13.0-17.5) gm/dL Hct (39.0-53.0) % Sodium (137-145) mmol/L BUN (9-20) mg/dL Creatinine (0.66-1.25) mg/dL POC Glucose (mg/dL) 125 H 141 H 106 H (75-99) mg/dL 05/31/19 05/31/19 05/31/19 Range/Units 06:10 06:10 06:25 RBC 3.82 L (4.30-5.90) m/uL Hgb 11.6 L (13.0-17.5) gm/dL Hct 33.7 L (39.0-53.0) % Sodium 135 L (137-145) mmol/L BUN 25 H (9-20) mg/dL Creatinine 1.30 H (0.66-1.25) mg/dL POC Glucose (mg/dL) 100 H (75-99) mg/dL Assessment and Plan Plan: 1 severe coronary artery disease, symptomatic with symptoms of chest pain and shortness of breath. The patient underwent two-vessel bypass surgery with STYLES to LAD and radial artery graft to PDA. The patient is postop day #3. The patient is hemodynamically stable. 2 post thoracotomy, the patient was extubated without any major difficulties and the patient currently is in oxygen by nasal cannula. Chest tubes are removed and the patient is on room air oxygen. Was moved to a telemetry unit and he left ICU yesterday. 3 severe double vessel coronary artery disease 4 obesity with a BMI of 42.3 5 obstructive sleep apnea and the patient has been a long-time CPAPer 6 hypertension 7 hyperlipidemia 8 acute kidney injury, creatinine is at 1.3, nonoliguric Plan The pulmonary status is stable. Continue aspirin and Plavix and beta blockers. Monitor renal function. His incentive spirometer. Ambulate in the hallway. CPAP at a pressure of 12 cm of water. Possible discharge in a.m.
[2019-05-31] MEDS: amLODIPine 2.5 MG TAB PO SCH (13:39)
[2019-05-31 16:54] LABS: Glucose,Whole Blood 103 mg/dL (75-99)
--- NOTE | 2019-05-31 17:00 | P.PN ---
Subjective Patient is sitting comfortably in bed. He denies any significant chest discomfort no dizziness lightheadedness shortness of breath. History of severe 2 vessel coronary artery disease status post coronary to pop is grafting 2 with STYLES to the LAD and left radial artery to the PDA History of hypertension dyslipidemia obstructive sleep apnea and uses CPAP mask morbid obesity On examination blood pressure 117/77 mmHg ulcerate 110 beats per afebrile 98.65 Breath sounds are clear no rhonchi no crackles Heart sounds are distant and soft Impression To his of coronary artery disease status post coronary artery bypass grafting and doing well Hypertension, blood pressure is well controlled Suggest continue antiplatelet therapy statins Short course of amiodarone which is to be stopped within 4 weeks of surgery Suggest Continue current medications Continue physical therapy Likely discharge in the next 24 hours Objective - Vital Signs Vital signs: Vital Signs Temp 98.6 F 05/31/19 16:00 Pulse 74 05/31/19 16:18 Resp 18 05/31/19 16:00 BP 117/77 05/31/19 16:00 Pulse Ox 96 05/31/19 16:00 Intake & Output 05/30/19 05/31/19 05/31/19 18:59 06:59 18:59 Intake Total 750 500 720 Output Total 350 200 Balance 400 300 720 Weight 124.1 kg Intake: IV 10 Lactated Ringers 1,000 ml 10 @ 20 mls/hr IV .Q24H [facility] Rx#:[id number] Oral 740 500 720 Output: Urine 350 200 Other: Voiding Method Urinal Toilet Toilet Urinal Urinal # Voids 400 1 1 # Bowel Movements 1 ABP, PAP, CO, CI - Last Documented Arterial Blood Pressure 109/69 Pulmonary Artery Pressure 17/6 Cardiac Output 7.2 Cardiac Index 3.1 - Labs CBC & Chem 7: 05/31/19 06:10 05/31/19 06:10 Labs: Abnormal Lab Results - Last 24 Hours (Table) 05/30/19 05/31/19 05/31/19 Range/Units 20:35 02:00 06:10 RBC 3.82 L (4.30-5.90) m/uL Hgb 11.6 L (13.0-17.5) gm/dL Hct 33.7 L (39.0-53.0) % Sodium (137-145) mmol/L BUN (9-20) mg/dL Creatinine (0.66-1.25) mg/dL POC Glucose (mg/dL) 141 H 106 H (75-99) mg/dL 05/31/19 05/31/19 05/31/19 Range/Units 06:10 06:25 16:51 RBC (4.30-5.90) m/uL Hgb (13.0-17.5) gm/dL Hct (39.0-53.0) % Sodium 135 L (137-145) mmol/L BUN 25 H (9-20) mg/dL Creatinine 1.30 H (0.66-1.25) mg/dL POC Glucose (mg/dL) 100 H 103 H (75-99) mg/dL
[2019-05-31] MEDS: VITAMIN E (DL,TOCOPHERYL ACET) 400 UNIT CAP PO SCH (20:36)
[2019-05-31] MEDS: SENNOSIDES-DOCUSATE SODIUM 1 EACH TAB PO SCH (20:37)
[2019-05-31] MEDS: QUEtiapine 25 MG TAB PO SCH (20:37)
[2019-05-31 20:50] LABS: Glucose,Whole Blood 100 mg/dL (75-99)
[2019-06-01 01:57] LABS: Glucose,Whole Blood 107 mg/dL (75-99)
[2019-06-01 06:27] LABS: Glucose,Whole Blood 104 mg/dL (75-99)
[2019-06-01 06:29] LABS: HCT 34.2 % (39.0-53.0); HGB 11.8 gm/dL (13.0-17.5); MCH 30.1 pg (25.0-35.0); MCHC 34.5 g/dL (31.0-37.0); MCV 87.3 fL (80.0-100.0); Mean Platelet Volume 7.2; Platelet Count 269 k/uL (150-450); RBC 3.92 m/uL (4.30-5.90); RDW 13.7 % (11.5-15.5); WBC 8.6 k/uL (3.8-10.6)
[2019-06-01] MEDS: INSULIN ASPART (NovoLOG) 100 UNIT/ML VIAL SQ SCH (06:30)
[2019-06-01 06:35] LABS: Potassium 3.9 mmol/L (3.5-5.1)
[2019-06-01] MEDS: PANTOPRAZOLE 40 MG TABLET PO SCH (06:35)
--- NOTE | 2019-06-01 06:46 | XR ---
EXAMINATION TYPE: XR chest 2V DATE OF EXAM: 06/01/2019 HISTORY: Post cardiac surgery. REFERENCE: Previous study dated 05/31/2019. FINDINGS: There has been a midline sternotomy. There continues be some left basilar airspace disease. The right lung is clear. I cannot exclude a sm all left effusion. IMPRESSION: CONTINUING POSTOPERATIVE CHANGE
[2019-06-01 08:03] VITALS: BP 114/67; RESP 18; TEMP 97.8
[2019-06-01] MEDS: lamoTRIgine 100 MG TAB PO SCH (08:05)
[2019-06-01] MEDS: HEPARIN SODIUM,PORCINE 5,000 UNIT/ML 1 ML VIAL SQ SCH (08:05)
[2019-06-01] MEDS: ASPIRIN 325 MG TAB PO SCH (08:06)
[2019-06-01] MEDS: CHOLECALCIFEROL 1,000 UNIT TAB PO SCH (08:06)
[2019-06-01] MEDS: ATORVASTATIN 40 MG TAB PO SCH (08:06)
[2019-06-01] MEDS: DESVENLAFAXINE SUCCINATE 50 MG TAB.ER.24H PO SCH (08:06)
[2019-06-01] MEDS: MONTELUKAST 10 MG TAB PO SCH (08:06)
[2019-06-01] MEDS: CYANOCOBALAMIN 500 MCG TAB PO SCH (08:06)
[2019-06-01] MEDS: METOPROLOL TARTRATE 25 MG TAB PO SCH (08:06)
[2019-06-01] MEDS: TAMSULOSIN 0.4 MG CAP.ER.24H PO SCH (08:06)
[2019-06-01] MEDS: CLOPIDOGREL 75 MG TAB PO SCH (08:06)
[2019-06-01] MEDS: GABAPENTIN 300 MG CAP PO SCH (08:06)
[2019-06-01] MEDS: IPRATROPIUM-ALBUTEROL 3 ML NEB INHALATION SCH (08:10)
[2019-06-01 08:36] VITALS: PULSE 70
--- NOTE | 2019-06-01 09:39 | P.DS ---
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 Severe double vessel coronary artery disease 2. Hypertension 3. Hyperlipidemia 4. Obstructive sleep apnea on CPAP use 5. Bipolar/depression 6. Morbid obesity 7. Fibromyalgia 8. Family history of premature coronary artery disease PRINCIPAL PROCEDURE: 1. Off-pump coronary artery bypass grafting 2 with the left internal mammary artery to the left anterior descending artery and left radial artery graft to the posterior descending coronary artery 2. Endoscopic radial artery harvest 3. Intraoperative transesophageal echocardiogram by anesthesia HISTORY OF PRESENT ILLNESS: This is a 54-year-old gentleman who follows on an outpatient basis with Dr. Greco. Apparently he had been experiencing some right lateral wall chest discomfort without any other aggravating or alleviating symptoms. He presented to his primary care physician's office who referred him for a CAT scan of the chest which demonstrated calcification in the coronary arteries. From there he was referred to Dr. Cortez from [facility]. He underwent stress testing which was abnormal and he was then recommended to have a heart catheterization. The heart catheterization demonstrated severe double vessel coronary artery disease with subtotal occlusion of the proximal LAD and 99% stenosis in the proximal RCA with focal 90% stenosis in the midportion of the RCA.. The patient was [facility]. He was recommended to undergo off-pump coronary artery bypass graft surgery. The usual perioperative course was discussed in detail with the patient and his family, all risks and benefits were explained, all questions were answered, and consent was obtained to proceed with surgery. The patient was scheduled as an outpatient for surgery at the earliest possible date. HOSPITAL COURSE: The patient was brought to the hospital on 05/28/2019, taken to the preoperative area, prepared in the usual fashion, and subsequently taken to the operating room where Dr. Braxton performed off-pump coronary artery bypass grafting 2 with the left internal mammary artery to the left anterior descending artery and left radial artery graft to the posterior descending coronary artery, endoscopic radial artery harvest, and intraoperative transesophageal echocardiogram by anesthesia. Upon completion of surgery the patient was transferred to the cardiovascular intensive care unit where he was r ecovered, monitored hemodynamically, and where he progressed to cardiac rehabilitation phase 1. He was extubated, all lines, tubes, and drips were discontinued when appropriate, and he was transferred to [facility] cardiac stepdown unit for further monitoring and rehabilitation. His oxygen was titrated down, he continued to work with physical and occupational therapy, he was tolerating oral diet, his pain was controlled, and he was ready to be discharged to home with [facility] care on postoperative day #4. He received written and verbal instruction regarding his medications, activity restrictions, signs and symptoms requiring physician notification, and follow-up appointments. COMPLICATIONS: The patient experienced no postoperative complications. Patient Condition at Discharge: Stable Plan - Discharge Summary Discharge Rx Participant: No New Discharge Prescriptions: New Aspirin 325 mg PO DAILY #30 tab Atorvastatin [Lipitor] 40 mg PO DAILY #30 tab Metoprolol Tartrate [Lopressor] 25 mg PO Q8HR #90 tab amLODIPine [Norvasc] 2.5 mg PO DAILY@1200 #30 tab Clopidogrel [Plavix] 75 mg PO DAILY #30 tab Pantoprazole [Protonix] 40 mg PO AC-BRKFST #30 tablet. Sennosidezita-Docusate Sodium [Senokot-S] 2 each PO HS PRN tab PRN Reason: Constipation Acetaminophen Tab [Tylenol] 1,000 mg PO Q6HR PRN tab PRN Reason: Fever And/ Or Pain Continue Fexofenadine HCl [Michelle Allergy] 180 mg PO DAILY ALPRAZolam [Xanax] 0.5 mg PO DAILY PRN PRN Reason: Anxiety QUEtiapine [SEROquel] 25 mg PO HS lamoTRIgine [LaMICtal] 200 mg PO DAILY Montelukast [Singulair] 10 mg PO DAILY Gabapentin [Neurontin] 300 mg PO QID Fluticasone Nasal [place] [Flonase Nasal [place]] 2 spr EA NOSTRIL DAILY Vitamin E (Dl,Tocopheryl Acet) [Vitamin E] 400 unit PO HS Tamsulosin HCl [Flomax] 0.4 mg PO DAILY Ramey-3 Fatty Acids [Ramey-3] 1,000 mg PO DAILY Desvenlafaxine Succinate [Pristiq] 50 mg PO DAILY Cyanocobalamin (Vitamin B-12) [Vitamin B-12] 1,000 mcg PO DAILY Cholecalciferol (Vitamin D3) [Vitamin D3] 5,000 unit PO DAILY Discontinued amLODIPine [Norvasc] 5 mg PO DAILY Aspirin [Adult Low Dose Aspirin EC] 81 mg PO DAILY Lisinopril 20 mg PO HS Lansoprazole [Prevacid] 30 mg PO DAILY Hydrochlorothiazide [Hydrodiuril] 12.5 mg PO DAILY Simvastatin [Zocor] 40 mg PO HS Ranitidine HCl [Zantac] 150 mg PO BID Discharge Medication List ALPRAZolam [Xanax] 0.5 mg PO DAILY PRN 05/12/19 [History] Cholecalciferol (Vitamin D3) [Vitamin D3] 5,000 unit PO DAILY 05/12/19 [History] Cyanocobalamin (Vitamin B-12) [Vitamin B-12] 1,000 mcg PO DAILY 05/12/19 [History] Desvenlafaxine Succinate [Pristiq] 50 mg PO DAILY 05/12/19 [History] Fexofenadine HCl [Michelle Allergy] 180 mg PO DAILY 05/12/19 [History] Fluticasone Nasal [place] [Flonase Nasal [place]] 2 spr EA NOSTRIL DAILY 05/12/19 [History] Gabapentin [Neurontin] 300 mg PO QID 05/12/19 [History] Montelukast [Singulair] 10 mg PO DAILY 05/12/19 [History] Ramey-3 Fatty Acids [Ramey-3] 1,000 mg PO DAILY 05/12/19 [History] QUEtiapine [SEROquel] 25 mg PO HS 05/12/19 [History] Tamsulosin HCl [Flomax] 0.4 mg PO DAILY 05/12/19 [History] Vitamin E (Dl,Tocopheryl Acet) [Vitamin E] 400 unit PO HS 05/12/19 [History] lamoTRIgine [LaMICtal] 200 mg PO DAILY 05/12/19 [History] Acetaminophen Tab [Tylenol] 1,000 mg PO Q6HR PRN tab 06/01/19 [Rx] Aspirin 325 mg PO DAILY #30 tab 06/01/19 [Rx] Atorvastatin [Lipitor] 40 mg PO DAILY #30 tab 06/01/19 [Rx] Clopidogrel [Plavix] 75 mg PO DAILY #30 tab 06/01/19 [Rx] Metoprolol Tartrate [Lopressor] 25 mg PO Q8HR #90 tab 06/01/19 [Rx] Pantoprazole [Protonix] 40 mg PO AC-BRKFST #30 tablet. 06/01/19 [Rx] Sennosides-Docusate Sodium [Senokot-S] 2 each PO HS PRN tab 06/01/19 [Rx] amLODIPine [Norvasc] 2.5 mg PO DAILY@1200 #30 tab 06/01/19 [Rx] Follow up Appointment(s)/Referral(s): Jorge Alberto Greco MD [Primary Care Provider] - 2 Weeks Afshin Braxton MD [STAFF PHYSICIAN] - 4 Weeks Abelardo Macias NPC [Nurse Practitioner] - 06/06/19 12:00 pm [facility], [NON-STAFF] - 1 Week Solomon Cortez MD [STAFF PHYSICIAN] - 2 Weeks Maria C Kimble MD [STAFF PHYSICIAN] - 2 Weeks Ambulatory/Diagnostic Orders: Complete Blood Count w/diff [LAB.AMB] Time Frame: 3 Days, Location: None Selected Comprehensive Metabolic Panel [LAB.AMB] Time Frame: 3 Days, Location: None Selected Activity/Diet/Wound Care/Special Instructions: DISCHARGE INSTRUCTIONS: 1. No driving for 4 weeks, or until physician gives their ok. 2. The patient should sleep in their own bed, no medical bed needed. 3. Stairs are not an issue. If the bedroom is upstairs, it is advised that the patient go up at night and down in the morning for the first week. Go slowly, using handrail and take 1 step at a time. 4. LOGAN hose are to be worn for 30 days or until physician discontinues. 5. Heart hugger is to be worn 100% of the time until physician discontinues.(except when showering) 6. No lifting, pushing, or pulling more than 10 pounds for 12 weeks. The physician will advise of any restriction changes. 7. The patient is expected to continue the prescribed walking program. 8. Continue pain control per as needed orders. 9. Continue with incentive spirometry and splinting/heart hugger until otherwise directed by the physician. 10. Must shower daily using liquid antibacterial soap and a separate white washcloth for each individual incision. 11. Routine sternal incision care. No powders, lotions, ointments on incisions. 12. Please call surgeon/TRANSPORTATION MANAGER for temp greater than 101 F or purulent drainage from incisions. 13. All prescriptions given by surgeon for 30 days. Refills need to be filled through qualitative field project manager/primary care physician. 14. A Red armband has been placed on the patient. It should be worn for 30 days post surgery and will be removed by the cardiac surgeons. If an ER visit is necessary, please make sure the number on the Red armband is called. HOME HEALTH SERVICES TO PROVIDE: RN SKILLED HOME CARE SERVICES FOR POST-OP SURGICAL PATIENTS WITH THE FOLLOWING: Coronary Artery Bypass Surgery (CABG), Mitral Valve Replacement/Repair ( MVR), Aortic Valve Replacement/Repair (AVR) RN TO CONTINUE EDUCATION FROM ``ROAD TO A HEALTH HEART PATIENT EDUCATION MANUAL (GIVEN TO PATIENT IN THE HOSPITAL) MEDICATION RECONCILIATION WITH EDUCATION NEEDED ON FIRST HOME VISIT EMPHASIZE IMPORTANCE OF WEARING BREAST SUPPORT/HEART HUGGER ENCOURAGE USE OF INCENTIVE SPIROMETER 10 X EVERY HOUR WHILE AWAKE ENCOURAGE UTILIZATION OF LOWER EXTREMITY COMPRESSION STOCKINGS/LOGAN HOSE and ELEVATE LEGS ABOVE LEVEL OF HEART WHILE AT REST. ENCOURAGE AMBULATION 3-5x/day INCREASING TOLERATES, WHILE AVOID EXTREMES IN TEMPERATURE FREQUENCY: RN TO OPEN THE PATIENT WITHIN 24 HOURS OF DISCHARGE FROM THE HOSPITAL WITH TELEHEALTH INSTALLED AT [facility] [place], RN TO VISIT 2-3 X A WEEK FOR 4 WEEKS ESTABLISHED BY PATIENT NEEDS. LABORATORY: CBC, CMP TO BE DRAWN ON THE THIRD DAY HOME, (RAN STAT) FAX RESULTS TO [phone]. TELEHEALTH PARAMETERS: WEIGHT: NOTIFY MD OF WEIGHT GAIN OF 2 LBS IN 24 HOURS OR 5 LBS IN ONE WEEK HR: NOTIFY MD OF HR <55 BPM OR HR>100 BPM BP: NOTIFY MD IF BP <90/55 OR BP>140/100 O2 SAT: NOTIFY MD IF PO2<93% ON ROOM AIR SEND TELEHEALTH REPORT TO RADIATION THERAPY TECHNICIAN AND CARDIOVASCULAR SURGEON THE FIRST WEEK OF CARE AND THEN BI-WEEKLY. PLEASE ADDITIONALLY COMMUNICATE ANY ABNORMALS AND NEW FINDINGS TO THE SURGEONS OFFICE. Discharge Disposition: HOME WITH HOME HEALTH SERVICES
--- NOTE | 2019-06-01 13:00 | P.PN ---
Subjective Progress Note Date: 06/01/19 54-year-old female patient who presented with shortness of breath and chest pain and the patient was found to have a positive stress test. Upon further investigation the patient was found to have severe two-vessel coronary artery disease with complete occlusion of the LAD and filling was from collaterals and the patient also had severe disease involving the right coronary artery system. Based on this, coronary artery bypass surgery was recommended and the patient underwent an off-pump 2 vessel bypass surgery with STYLES to LAD and radial artery graft to PDA. Estimated blood loss was 100 mL. The patient is currently in the intensive.. The patient is intubated on a mechanical ventilator. The patient is hemodynamically doing well. Pulmonary artery pressures are 34/24 mmHg. CVP is at 18. The patient's has a cardiac output of 4.2 and an index of 2.0. The patient a mechanical ventilator in assist control mode and the patient is currently at the rate of 12 with a tidal volume of 500 and FiO2 100% and a PEEP of 10. Because the pending for now. Chest x-ray shows cardiomegaly. The media stinal chest tube and the left pleural chest tube are both in place. The patient is [employer]Michelle catheter in place. ET tube is in a good location and the patient is intubated by #8.5 ET tube. The patient has a pleural and a mediastinal chest tube. Output is minimal for now and there is no evidence of any air leak. The patient is producing adequate amount of urine output. The patient on 5 g the left of nitroglycerin drip and Cardizem drip at 5 mg an hour. All of the surgical incision dry clean and intact. The patient on propofol for sedation and is calm and comfortable. No other significant events over this surgery. The patient has obstructive sleep apnea. The patient utilizes a CPAP on outpatient basis. His preop FEV1 is 78% of predicted. On today's evaluation of a 2018 the patient is extubated and the patient is awake and alert doing well without any major complaints. Noted the patient was extubated. Hours after he arrived to the ICU. He was briefly given BiPAP and c urrently is on oxygen by nasal cannula. Cardiac output is up to 4.6. He has still a Cardizem drip at 5 mg an hour that was transitioned to Norvasc. The patient was taken off the nitroglycerin drip. He is on insulin at 1 unit an hour. There is no evidence of air leak. Output from the chest tubes have been minimal for now and the chest that showed adequate expansion of both lungs without evidence of any pneumothorax. He is using incentive spirometer. No other concerns for now. No inotropes. He is postop day #1. On 05/30/2019, the patient is postop day #2. He is doing extremely well. Output from the chest tubes are minimal and the patient's chest tubes were removed today. Sternum stable clean and intact. The patient is hemodynamically stable. The [employer]Michelle catheter was removed. He is using incentive spirometer. He is ambulating. No nausea. No vomiting. No abdominal pain. No chest pain. Sternum stable clean and intact. Cardiac rhythm is sinus. The patient utilizes a CPAP machine. He was able to bring in his CPAP unit and his CPAP is set at a pressure of 12 cm of water with excellent compliance he noted on his data. On 05/31/2019 patient is postop day #3. Doing extremely well. Chest tubes have been removed. He is on room air oxygen. Using incentive spirometer. Using his CPAP overnight. Cardiac rhythm is sinus. Producing adequate amount of urine output. His emanating in the hallway. No nausea or vomiting or abdominal pain. No chest pain. The patient's white cell count is at 9.8. Creatinine is at 1.3. On 06/01/2019 the patient is doing extremely well. Postop day #4. Ambulating. He is on room air oxygen. Chest exit showed some limited cardiomegaly with some atelectatic changes and left lung base. Oxidation improved and the patient is on room air oxygen. Rhythm is sinus. Utilizing his CPAP. No chest pain. Renal function shows a creatinine of 1.2. Hemoglobin is at 11.8. The patient will be discharged home today. Objective - Vital Signs Vital signs: Vital Signs Temp 97.8 F 06/01/19 08:00 Pulse 70 06/01/19 08:35 Resp 18 06/01/19 08:00 BP 114/67 06/01/19 08:00 Pulse Ox 95 06/01/19 08:00 Intake & Output 05/31/19 06/01/19 06/01/19 18:59 06:59 18:59 Intake Total 1080 80 Balance 1080 80 Weight 123 kg Intake: Oral 1080 80 Other: Voiding Method Toilet Toilet Urinal Urinal # Voids 1 1 # Bowel Movements 1 ABP, PAP, CO, CI - Last Documented Arterial Blood Pressure 109/69 Pulmonary Artery Pressure 17/6 Cardiac Output 7.2 Cardiac Index 3.1 - Exam - Constitutional General appearance: Present: cooperative, no acute distress, obese - Respiratory Details: Lungs sounds diminished bilaterally. Sternum stable clean and intact. - Cardiovascular Details: S1, S2 present. Regular rate and rhythm, sinus rhythm on telemetry. Sternum stable. Palpable peripheral pulses bilaterally. No edema present. No calf pain or tenderness noted. Heart hugger in place with patient demonstrating appropriate use. Antiembolism stockings, SCDs present. - Gastrointestinal Gastrointestinal Comment(s): Abdomen soft, nontender, nondistended, obese. Active bowel sounds present 4 quadrants. Tolerating full liquids. Positive bowel movement. - Genitourinary Genitourinary Comment(s): Continues to void clear, yellow urine. - Integumentary Integumentary Comment(s): Skin is warm and dry with evidence of good perfusion. Anterior chest incision well approximated and covered with dry intact dressing. Left radial artery harvest site well approximated. Left hand is warm, good cap refill, able to move hand and program consultant objects without difficulty. - Neurologic Neurologic: Present: CNII-XII intact - Musculoskeletal Musculoskeletal: Present: gait normal, strength equal bilaterally - Psychiatric Psychiatric: Present: A&O x's 3, appropriate affect, intact judgment & insight - Labs CBC & Chem 7: 06/01/19 05:57 06/01/19 05:57 Labs: Abnormal Lab Results - Last 24 Hours (Table) 05/31/19 05/31/19 06/01/19 Range/Units 16:51 20:48 01:55 RBC (4.30-5.90) m/uL Hgb (13.0-17.5) gm/dL Hct (39.0-53.0) % BUN (9-20) mg/dL Glucose (74-99) mg/dL POC Glucose (mg/dL) 103 H 100 H 107 H (75-99) mg/dL 06/01/19 06/01/19 06/01/19 Range/Units 05:57 05:57 06:26 RBC 3.92 L (4.30-5.90) m/uL Hgb 11.8 L (13.0-17.5) gm/dL Hct 34.2 L (39.0-53.0) % BUN 22 H (9-20) mg/dL Glucose 100 H (74-99) mg/dL POC Glucose (mg/dL) 104 H (75-99) mg/dL Assessment and Plan Plan: 1 severe coronary artery disease, symptomatic with symptoms of chest pain and shortness of breath. The patient underwent two-vessel bypass surgery with STYLES to LAD and radial artery graft to PDA. The patient is postop day #4. The patient is hemodynamically stable. 2 post thoracotomy, the patient was extubated without any major difficulties and the patient currently is in oxygen by nasal cannula. Chest tubes are removed and the patient is on room air oxygen. Was moved to a telemetry unit and he left ICU yesterday. The patient is on room air oxygen. Limited atelectatic changes in the left lung base which is expected following thoracotomy. 3 severe double vessel coronary artery disease 4 obesity with a BMI of 42.3 5 obstructive sleep apnea and the patient has been a long-time CPAPer 6 hypertension 7 hyperlipidemia 8 acute kidney injury, creatinine is at 1.3, nonoliguric and the creatinine is improving is down to 1.2 Plan The pulmonary status is stable. Continue aspirin and Plavix and beta blockers. The patient is on metoprolol 25 mg every 8 hours. Continue Lipitor 40 mg by mouth daily. Norvasc 2.5 mg by mouth daily. Incentive spirometer. CPAP. We'll follow. Clear for discharge from the pulmonary standpoint.
--- NOTE | 2019-06-01 13:52 | P.PN ---
Subjective 54-year-old pleasant gentleman is status post cannot remove his grafting postoperative day one. Patient is off Cardizem patient is offClevedipine. Patient still has mediastinal and left chest tubes draining very minimally on nasal cannula oxygen.patient is still on insulin drip 05/30/2019 Patient the chest tubes are out patient is clinically doing well will be transferred out of the ICU today 05/31/2018 Patient is clinically doing well overnight events no further recommendations from medicine perspective today 05/16/2019 Patient is clinically doing well except for mild tachycardia for which a beta amna dose is being increased patient is being discharged today Constitutional: Denied any fatigue denied any fever. Cardio vascular: denied any chest pain, palpitations Gastrointestinal denied any nausea vomiting Pulmonary: Denied any shortness of breath cough Neurologic denied any new focal deficits All inpatient medications were reviewed and appropriate changes in these medications as dictated in the interval history and assessment and plan. Objective - Vital Signs Vital signs: Vital Signs Temp 97.8 F 06/01/19 08:00 Pulse 70 06/01/19 08:35 Resp 18 06/01/19 08:00 BP 114/67 06/01/19 08:00 Pulse Ox 95 06/01/19 08:00 Intake & Output 05/31/19 06/01/19 06/01/19 18:59 06:59 18:59 Intake Total 1080 80 Balance 1080 80 Weight 123 kg Intake: Oral 1080 80 Other: Voiding Method Toilet Toilet Urinal Urinal # Voids 1 1 # Bowel Movements 1 ABP, PAP, CO, CI - Last Documented Arterial Blood Pressure 109/69 Pulmonary Artery Pressure 17/6 Cardiac Output 7.2 Cardiac Index 3.1 - Exam PHYSICAL EXAMINATION: GENERAL: The patient is alert and oriented x3, not in any acute distress. Well developed, well nourished. chest tubes as mentioned above HEENT: Pupils are round and equally reacting to light. EOMI. No scleral icterus. No conjunctival pallor. Normocephalic, atraumatic. No pharyngeal erythema. No thyromegaly. CARDIOVASCULAR: S1 and S2 present. No murmurs, rubs, or gallops. PULMONARY: Chest is clear to auscultation, no wheezing or crackles. ABDOMEN: Soft, nontender, nondistended, normoactive bowel sounds. No palpable or ganomegaly. MUSCULOSKELETAL: No joint swelling or deformity. EXTREMITIES: No cyanosis, clubbing, or pedal edema. NEUROLOGICAL: Gross neurological examination did not reveal any focal deficits. SKIN: No rashes. - Labs CBC & Chem 7: 06/01/19 05:57 06/01/19 05:57 Labs: Abnormal Lab Results - Last 24 Hours (Table) 05/31/19 05/31/19 06/01/19 Range/Units 16:51 20:48 01:55 RBC (4.30-5.90) m/uL Hgb (13.0-17.5) gm/dL Hct (39.0-53.0) % BUN (9-20) mg/dL Glucose (74-99) mg/dL POC Glucose (mg/dL) 103 H 100 H 107 H (75-99) mg/dL 06/01/19 06/01/19 06/01/19 Range/Units 05:57 05:57 06:26 RBC 3.92 L (4.30-5.90) m/uL Hgb 11.8 L (13.0-17.5) gm/dL Hct 34.2 L (39.0-53.0) % BUN 22 H (9-20) mg/dL Glucose 100 H (74-99) mg/dL POC Glucose (mg/dL) 104 H (75-99) mg/dL Assessment and Plan Plan: 10 coronary artery disease status post CABG continue with the above-mentioned management. -Postoperative respiratory failure status post extubation , patient is off oxygen, clinically doing well -Obesity -Obstructive sleep apnea -Hypertension -Hyperlipidemia Patient is not diabetic will not require any medications for diabetes
--- NOTE | 2019-06-01 14:27 | P.HPCAR ---
History of Present Illness This is Emily Welch PA-C dictating a progress note on this patient The patient was interviewed and examined by me as well as by Dr. Norris Case discussed with Dr. Norris and he agrees with the plan of care IMPRESSION / ASSESSMENT: CAD status post CABG, doing well postoperatively Hypertension, pressure stable Dyslipidemia CHRIS on CPAP PLAN: CT surgery is planning to discharge patient today Continue current medication regimen HPI/interval history Patient is a 54-year-old male with a history of severe coronary artery disease who presented for CABG. He underwent successful CABG and is doing well postoperatively. He was seen and examined sitting up in his chair. Denies any complaints of chest pain, shortness of breath, dizziness, lightheadedness, palpitations, syncope. EXAMINATION Temperature 97.8F, pulse 72, respirations 18, blood pressure 114/67, oxygen saturation 95% on room air Patient seen and examined sitting up in his chair, in no acute distress Lungs clear to auscultation bilaterally Heart is regular, normal S1-S2, no murmurs appreciated No lower extremity edema noted REVIEW OF LABS, ECG Hemoglobin 11.8, WBC 8.6, potassium 3.9, BUN 22, creatinine 1.2 Physical Exam Vitals: Vital Signs Temp Pulse Pulse Resp BP BP Pulse Ox 06/01/19 08:35 70 06/01/19 08:10 72 06/01/19 08:00 97.8 F 112 H 18 114/67 95 06/01/19 07:10 95 16 06/01/19 04:00 99.2 F 95 16 100/63 95 06/01/19 03:55 16 06/01/19 00:00 96 16 05/31/19 23:25 98.2 F 96 16 111/65 94 L 05/31/19 20:00 98.3 F 99 20 113/62 96 05/31/19 16:18 74 05/31/19 16:02 92 05/31/19 16:00 98.6 F 110 H 18 117/77 96 Intake and Output 05/31/19 06/01/19 06/01/19 22:59 06:59 14:59 Intake Total 360 80 Balance 360 80 Intake: Oral 360 80 Other: Voiding Method Toilet Toilet Urinal Urinal # Voids 1 Weight 123 kg Past Medical History Past Medical History: Fibromyalgia, GERD/Reflux, Hyperlipidemia, Hypertension, Osteoarthritis (OA), Sleep Apnea/CPAP/BIPAP Additional Past Medical History / Comment(s): Coronary artery disease, obstru ctive sleep apnea, hypertension, hyperlipidemia, fibromyalgia, obesity with a BMI of 42.3, remote history of pancreatitis, the patient is a CPAP user History of Any Multi-Drug Resistant Organisms: None Reported Past Surgical History: Heart Catheterization, Orthopedic Surgery Additional Past Surgical History / Comment(s): sinus surg. x4, repair left detached retina, achilles surg., recent heart cath. Past Anesthesia/Blood Transfusion Reactions: No Reported Reaction, Motion Sickness Past Psychological History: Anxiety, Bipolar, Depression Smoking Status: Never smoker Past Alcohol Use History: None Reported Past Drug Use History: None Reported - Past Family History Mother Family Medical History: Cancer Father Family Medical History: Cancer, Coronary Artery Disease (CAD), Myocardial Infarction ([place]) Additional Family Medical History / Comment(s): Father with myocardial infarction at 42 years old Physical Examination Vital Signs Temp Pulse Pulse Resp BP BP Pulse Ox 06/01/19 08:35 70 06/01/19 08:10 72 06/01/19 08:00 97.8 F 112 H 18 114/67 95 06/01/19 07:10 95 16 06/01/19 04:00 99.2 F 95 16 100/63 95 06/01/19 03:55 16 06/01/19 00:00 96 16 05/31/19 23:25 98.2 F 96 16 111/65 94 L 05/31/19 20:00 98.3 F 99 20 113/62 96 05/31/19 16:18 74 05/31/19 16:02 92 05/31/19 16:00 98.6 F 110 H 18 117/77 96 Intake and Output 05/31/19 06/01/19 06/01/19 22:59 06:59 14:59 Intake Total 360 80 Balance 360 80 Intake: Oral 360 80 Other: Voiding Method Toilet Toilet Urinal Urinal # Voids 1 Weight 123 kg Results 06/01/19 05:57 06/01/19 05:57 CBC 06/01/19 Range/Units 05:57 WBC 8.6 (3.8-10.6) k/uL RBC 3.92 L (4.30-5.90) m/uL Hgb 11.8 L (13.0-17.5) gm/dL Hct 34.2 L (39.0-53.0) % Plt Count 269 (150-450) k/uL Comprehensive Metabolic Panel 06/01/19 Range/Units 05:57 Sodium 138 (137-145) mmol/L Potassium 3.9 (3.5-5.1) mmol/L Chloride 105 (98-107) mmol/L Carbon Dioxide 25 (22-30) mmol/L BUN 22 H (9-20) mg/dL Creatinine 1.20 (0.66-1.25) mg/dL Glucose 100 H (74-99) mg/dL Calcium 9.0 (8.4-10.2) mg/dL Intake and Output 05/31/19 06/01/19 06/01/19 22:59 06:59 14:59 Intake Total 360 80 Balance 360 80 Intake: Oral 360 80 Other: Voiding Method Toilet Toilet Urinal Urinal # Voids 1 Weight 123 kg 06/01/19 05:57 06/01/19 05:57
== END 2019-06-01 11:31 | disposition home health service (06) | DRG 236 ==
LOC: 2ORMAIN 05:34 → 2SICU 13:20 → 3SCARD 05-30 16:24
PROVIDERS: ADMIT Thoracic Surgery (Cardiothoracic Vascular Surgery); ATTEND Thoracic Surgery (Cardiothoracic Vascular Surgery)
PROC: 03BC3ZZ Excision of Left Radial Artery, Percutaneous Approach (ICD-10-PCS; principal; 2019-05-28 08:00)
PROC: 02100A3 Bypass Coronary Artery, One Artery from Coronary Artery with Autologous Arterial Tissue, Open Approach (ICD-10-PCS; principal; 2019-05-28 08:00)
PROC: 02100Z9 Bypass Coronary Artery, One Artery from Left Internal Mammary, Open Approach (ICD-10-PCS; principal; 2019-05-28 08:00)
DX: I25.10 Atherosclerotic heart disease of native coronary artery without angina pectoris (principal); Z68.41 Body mass index [BMI] 40.0-44.9, adult; I25.82 Chronic total occlusion of coronary artery; I25.84 Coronary atherosclerosis due to calcified coronary lesion; E78.5 Hyperlipidemia, unspecified; G47.33 Obstructive sleep apnea (adult) (pediatric); F31.9 Bipolar disorder, unspecified; F41.9 Anxiety disorder, unspecified; M79.7 Fibromyalgia; I11.9 Hypertensive heart disease without heart failure; K21.9 Gastro-esophageal reflux disease without esophagitis; M19.90 Unspecified osteoarthritis, unspecified site; E11.65 Type 2 diabetes mellitus with hyperglycemia; E66.01 Morbid (severe) obesity due to excess calories; Z99.81 Dependence on supplemental oxygen; Z79.82 Long term (current) use of aspirin; Z79.899 Other long term (current) drug therapy; Z82.49 Family history of ischemic heart disease and other diseases of the circulatory system
CPT/HCPCS: 71045; 71046; 80048; 80053; 82330; 82805; 83735; 84100; 85025; 85027; 85520; 85610; 85730; 86850; 86891; 86900; 86901; 86920; 94002; 94640; 94660

== ENCOUNTER 2019-06-06 21:39 | Emergency (ER) | payer BC ==
[2019-06-06 21:45] VITALS: RESP 18; TEMP 98.5
[2019-06-06] MEDS ORDERED: OXYMETAZOLINE 0.05% NASL SPRAY 1 SPRAY BOTTLE NASAL STA (22:02)
--- NOTE | 2019-06-06 23:16 | ED ---
General Adult HPI - General Chief complaint: ENT Stated complaint: Nose Bleed Post Op Time Seen by Provider: 06/06/19 21:50 Source: patient, RN notes reviewed, old records reviewed Mode of arrival: ambulatory Limitations: no limitations - History of Present Illness Initial comments: 54-year-old male patient past history significant for two-vessel bypass on 05/28 currently on Plavix presents to ED for chief complaint of anterior epistaxis in left naris has been waxing and waning all day. Patient was seen today by the nurse practitioner at the surgeon's office and was told everything is progressing well, denies any chest pain shortness of breath. He complaint is anterior epistaxis, no headache. Systemic: Pt denies fatigue, fever/chills, rash. Pt denies weakness, night sweats, weight loss. Neuro: Pt denies headache, visual disturbances, syncope or pre-syncope. HEENT: Pt denies ocular discharge or irritation, otalgia, rhinorrhea, pharyngitis or notable lymphadenopathy. Cardiopulmonary: Pt denies chest pain, SOB, heart palpitations, dyspnea on exertion. Abdominal/GI: Pt denies abdominal pain, n/v/d. : Pt denies dysuria, burning w/ urination, frequency/urgency. Denies new onset urinary or bowel incontinence. MSK: Pt denies myalgia, loss of strength or function in extremities. Neuro: Pt denies new onset weakness, paresthesias. - Related Data Home Medications Medication Instructions Recorded Confirmed ALPRAZolam [Xanax] 0.5 mg PO DAILY PRN 05/12/19 05/28/19 Cholecalciferol (Vitamin D3) 5,000 unit PO DAILY 05/12/19 05/28/19 [Vitamin D3] Cyanocobalamin (Vitamin B-12) 1,000 mcg PO DAILY 05/12/19 05/28/19 [Vitamin B-12] Desvenlafaxine Succinate [Pristiq] 50 mg PO DAILY 05/12/19 05/28/19 Fexofenadine HCl [Michelle Allergy] 180 mg PO DAILY 05/12/19 05/28/19 Fluticasone Nasal [place] [Flonase 2 spr EA NOSTRIL DAILY 05/12/19 05/28/19 Nasal [place]] Gabapentin [Neurontin] 300 mg PO QID 05/12/19 05/28/19 Montelukast [Singulair] 10 mg PO DAILY 05/12/19 05/28/19 [place]-3 Fatty Acids [Krum-3] 1,000 mg PO DAILY 05/12/19 05/28/19 QUEtiapine [SEROquel] 25 mg PO HS 05/12/19 05/28/19 Tamsulosin HCl [Flomax] 0.4 mg PO DAILY 05/12/19 05/28/19 Vitamin E (Dl,Tocopheryl Acet) 400 unit PO HS 05/12/19 05/28/19 [Vitamin E] lamoTRIgine [LaMICtal] 200 mg PO DAILY 05/12/19 05/28/19 Previous Rx's Medication Instructions Recorded Acetaminophen Tab [Tylenol] 1,000 mg PO Q6HR PRN tab 06/01/19 Aspirin 325 mg PO DAILY #30 tab 06/01/19 Atorvastatin [Lipitor] 40 mg PO DAILY #30 tab 06/01/19 Clopidogrel [Plavix] 75 mg PO DAILY #30 tab 06/01/19 Metoprolol Tartrate [Lopressor] 25 mg PO Q8HR #90 tab 06/01/19 Pantoprazole [Protonix] 40 mg PO AC-BRKFST #30 tablet. 06/01/19 Sennosides-Docusate Sodium 2 each PO HS PRN tab 06/01/19 [Senokot-S] amLODIPine [Norvasc] 2.5 mg PO DAILY@1200 #30 tab 06/01/19 Allergies Allergy/AdvReac Type Severity Reaction Status Date / Time No Known Allergies Allergy Verified 06/06/19 21:45 Review of Systems ROS Statement: Those systems with pertinent positive or pertinent negative responses have been documented in the HPI. ROS Other: All systems not noted in ROS Statement are negative. Past Medical History Past Medical History: Fibromyalgia, GERD/Reflux, Hyperlipidemia, Hypertension, Osteoarthritis (OA), Sleep Apnea/CPAP/BIPAP Additional Past Medical History / Comment(s): Coronary artery disease, obstructive sleep apnea, hypertension, hyperlipidemia, fibromyalgia, obesity with a BMI of 42.3, remote history of pancreatitis, the patient is a CPAP user History of Any Multi-Drug Resistant Organisms: None Reported Past Surgical History: Coronary Bypass/CABG, Heart Catheterization, Orthopedic Surgery Additional Past Surgical History / Comment(s): sinus surg. x4, repair left detached retina, achilles surg., recent heart cath. Past Anesthesia/Blood Transfusion Reactions: No Reported Reaction, Motion Sickness Past Psychological History: Anxiety, Bipolar, Depression Smoking Status: Never smoker Past Alcohol Use History: None Reported Past Drug Use History: None Reported - Past Family History Mother Family Medical History: Cancer Father Family Medical History: Cancer, Coronary Artery Disease (CAD), Myocardial Infarction ([place]) Additional Family Medical History / Comment(s): Father with myocardial infarction at 42 years old General Exam - General Exam Comments Initial Comments: Constitutional: NAD, AOX3, Pt has pleasant affect. HEENT: NC/AT, trachea midline, neck supple, no lymphadenopathy. Posterior pharynx non erythematous, without exudates. External ears appear normal, without discharge. Mucous membranes moist. Eyes PERRLA, EOM intact. There is no scleral icterus. No pallor noted. Dried blood noted in left naris, no active bleeding. Cardiopulmonary: RRR, no murmurs, rubs or gallops, no JVD noted. Lungs CTAB in anterior and posterior stroud. No peripheral edema. Abdominal exam: Abdomen soft and non-distended. Abdomen non-tender to palpation in all 4 quadrants. Bowel sounds active in LLQ. No hepatosplenomegaly. No ecchymosis Neuro: CN II-XII grossly intact. No nuchal rigidity. No raccon eyes, no kaplan sign, no hemotympanum. No cervical spinal tenderness. MSK: No posterior calf tenderness bilaterally, homans sign negative bilaterally. Posterior tibialis and radial pulse +2 bilaterally. Sensation intact in upper and lower extremities. Full active ROM in upper and lower extremities, 5/5 stregnth. Limitations: no limitations Course Vital Signs 06/06/19 21:43 Temperature 98.5 F Pulse Rate 95 Respiratory 18 Rate Blood Pressure 110/76 O2 Sat by Pulse 96 Oximetry Medical Decision Making - Medical Decision Making 54-year-old male patient presents ED chief complaint of epistaxis. Patient is on Plavix, no blood thinners. Patient will signs stable, afebrile. Physical exam displayed dried blood noted in left naris. Epistaxis resolved with Afrin, nasal clamp. Cardiothoracic office phone number was called from patient's heart patient wrist band, no answer. Patient will be discharged, follow-up with primary care provider, return to your condition worsens. Case discussed with Dr. Valladares. Disposition Clinical Impression: Anterior epistaxis Disposition: HOME SELF-CARE Condition: Stable Instructions (If sedation given, give patient instructions): Nosebleed (ED) Additional Instructions: Patient to adhere to previously discussed treatment plan and will take medication(s) as directed. Patient to follow up with PCP in 1-2 days. Patient to return to ED if symptoms do not improve. Follow-up with slat pickler and primary care provider tomorrow, return to ER if condition worsens. Is patient prescribed a controlled substance at d/c from ED?: No Referrals: Jorge Alberto Greco MD [Primary Care Provider] - 1-2 days
[2019-06-06 23:30] VITALS: BP 112/75; PULSE 84
== END 2019-06-06 23:29 | disposition home or self-care (01) ==
LOC: EC 21:39
DX: R04.0 Epistaxis (principal); M79.7 Fibromyalgia; I25.10 Atherosclerotic heart disease of native coronary artery without angina pectoris; F41.9 Anxiety disorder, unspecified; F32.9 Major depressive disorder, single episode, unspecified; G47.33 Obstructive sleep apnea (adult) (pediatric); Z99.89 Dependence on other enabling machines and devices; E66.9 Obesity, unspecified; Z68.41 Body mass index [BMI] 40.0-44.9, adult; Z95.1 Presence of aortocoronary bypass graft; Z95.818 Presence of other cardiac implants and grafts; Z79.899 Other long term (current) drug therapy
CPT/HCPCS: 99283

== ENCOUNTER → 2019-09-24 | Outpatient (CLI) | payer BC ==
--- NOTE | 2019-09-24 16:16 | XR ---
EXAMINATION TYPE: XR chest 2V DATE OF EXAM: 09/24/2019 COMPARISON: June 01 HISTORY: Shortness of breath TECHNIQUE: Frontal and lateral views of the chest are obtained. FINDINGS: Scattered senescent parenchymal changes noted. Hyperinflation compatible with COPD. No evidence for infiltrate. No evidence for atelectasis. Heart size is stable. Mediastinal structures are stable and grossly unremarkable. No evidence for hilar prominence. Degenerative changes dorsal spine. IMPRESSION: 1. No evidence for acute pulmonary disease.
== END | disposition home or self-care (01) ==
LOC: RADXRMAIN 16:02
PROVIDERS: ATTEND Orthopaedic Surgery
DX: Z01.818 Encounter for other preprocedural examination (principal); I11.9 Hypertensive heart disease without heart failure; E78.5 Hyperlipidemia, unspecified
CPT/HCPCS: 71046

== ENCOUNTER 2020-02-18 23:10 | Observation (INO) | payer BC ==
[2020-02-19] MEDS ORDERED: MORPHINE SULFATE 4 MG/ML SYRINGE ONE (00:22)
[2020-02-19] MEDS ORDERED: SODIUM CHLORIDE 0.9% 1,000 ML BAG ONE (00:22)
[2020-02-19] MEDS ORDERED: PANTOPRAZOLE 40 MG/10 ML VIAL ONE (00:22)
[2020-02-19] MEDS ORDERED: ONDANSETRON 4 MG/2 ML VIAL ONE ×2 (00:22→17:22)
[2020-02-19 05:02] LABS: INR 0.9 (<1.2); Prothrombin Time 9.8 sec (9.0-12.0)
[2020-02-19 05:04] LABS: Basophils # (A) 0.1 k/uL (0-0.2); Basophils % (A) 1 %; Eosinophils % (A) 0 %; HCT 46.8 % (39.0-53.0); HGB 15.9 gm/dL (13.0-17.5); Lymphocytes # (A) 1.5 k/uL (1.0-4.8); Lymphocytes % (A) 13 %; MCH 29.7 pg (25.0-35.0); MCV 87.2 fL (80.0-100.0); Monocytes # (A) 0.7 k/uL (0-1.0); Monocytes % (A) 6 %; Neutrophils # (A) 9.3 k/uL (1.3-7.7); Neutrophils % (A) 79 %; Platelet Count 308 k/uL (150-450); RBC 5.37 m/uL (4.30-5.90); RDW 13.3 % (11.5-15.5); WBC 11.8 k/uL (3.8-10.6)
[2020-02-19 05:20] LABS: Appearance,Urine Clear (Clear); Bilirubin,Urine Negative (Negative); Blood,Urine Negative (Negative); Color,Urine Yellow; Glucose,Urine (UA) Negative (Negative); Hyaline Casts,Urine 1 /lpf (0-2); Ketones,Urine Negative (Negative); Leukocyte Esterase,Urine Negative (Negative); Mucus,Urine Rare /hpf; Nitrite,Urine Negative (Negative); PH, Urine 6.5 (5.0-8.0); Protein,Urine 1+ (Negative); RBC,Urine 2 /hpf (0-5); Specific Gravity,Urine 1.024 (1.001-1.035); WBC,Urine 1 /hpf (0-5)
[2020-02-19 05:58] LABS: ALT 92 U/L (4-49); AST 126 U/L (17-59); African American GFR (CKD) >90 (>60 ml/min/1.73 sqM); Albumin 4.7 g/dL (3.5-5.0); Alkaline Phosphatase 138 U/L (38-126); Amylase 61 U/L (30-110); Anion Gap 12 mmol/L; Blood Urea Nitrogen 19 mg/dL (9-20); Carbon Dioxide 24 mmol/L (22-30); Chloride 103 mmol/L (98-107); Glucose 131 mg/dL (74-99); Magnesium 2.1 mg/dL (1.6-2.3); Non-African American GFR(CKD) >90 (>60 ml/min/1.73 sqM); Phosphorus 3.8 mg/dL (2.5-4.5); Sodium 139 mmol/L (137-145); Total Bilirubin 1.8 mg/dL (0.2-1.3); Total Protein 7.9 g/dL (6.3-8.2)
[2020-02-19 05:59] LABS: Potassium 4.4 mmol/L (3.5-5.1)
--- NOTE | 2020-02-19 06:42 | CT ---
EXAM: CT Abdomen and Pelvis With Intravenous Contrast CLINICAL HISTORY: RUQ pain TECHNIQUE: Axial computed tomography images of the abdomen and pelvis with intravenous contrast. CTDI is 29 mGy and DLP is 1072 mGy-cm. This CT exam was performed using one or more of the following dose reduction techniques: automated exposure control, adjustment of the mA and/or kV according to patient size, and/or use of iterative reconstruction technique. COMPARISON: No relevant prior studies available. FINDINGS: Lung bases: No mass. No consolidation. Mild cardiomegaly. ABDOMEN: Liver: Unremarkable. Gallbladder and bile ducts: There is inflammation around the gallbladder. Pancreas: Unremarkable. Spleen: Unremarkable. Adrenals: Unremarkable. Kidneys and ureters: No hydronephrosis. Right renal cyst. Stomach and bowel: No bowel obstruction. No bowel wall thickening. Colonic diverticulosis. PELVIS: Appendix: No evidence of appendicitis. Bladder: Unremarkable. Reproductive: Unremarkable. ABDOMEN and PELVIS: Intraperitoneal space: Unremarkable. Bones/joints: No acute fractures. Soft tissues: Unremarkable. Vasculature: No abdominal aortic aneurysm. Lymph nodes: No enlarged lymph nodes. IMPRESSION: There is inflammation around the gallbladder. No discrete stones were identified by CT, but this is suspicious for cholecystitis. Recommend right upper quadrant ultrasound.
--- NOTE | 2020-02-19 11:18 | P.GSHP ---
History of Present Illness H&P Date: 02/19/20 Chief Complaint: Right upper quadrant pain This is a 54-year-old male who came in through the emergency room last night. Patient with right quadrant pain. Patient's workup found have evidence of acute cholecystitis. Patient states his pain is improved today. Past Medical History Past Medical History: Fibromyalgia, GERD/Reflux, Hyperlipidemia, Hypertension, Osteoarthritis (OA), Sleep Apnea/CPAP/BIPAP Additional Past Medical History / Comment(s): Coronary artery disease, obstructive sleep apnea, hypertension, hyperlipidemia, fibromyalgia, obesity with a BMI of 42.3, remote history of pancreatitis, the patient is a CPAP user History of Any Multi-Drug Resistant Organisms: None Reported Past Surgical History: Coronary Bypass/CABG, Heart Catheterization, Orthopedic Surgery Additional Past Surgical History / Comment(s): sinus surg. x4, repair left detached retina, achilles surg., recent heart cath. Past Anesthesia/Blood Transfusion Reactions: No Reported Reaction, Motion Sickness Past Psychological History: Anxiety, Bipolar, Depression Smoking Status: Never smoker Past Alcohol Use History: None Reported Past Drug Use History: None Reported - Past Family History Mother Family Medical History: Cancer Father Family Medical History: Cancer, Coronary Artery Disease (CAD), Myocardial Infarction ([place]) Additional Family Medical History / Comment(s): Father with myocardial infarction at 42 years old Medications and Allergies Home Medications Medication Instructions Recorded Confirmed Type Cholecalciferol (Vitamin D3) 5,000 unit PO DAILY 05/12/19 02/19/20 History [Vitamin D3] Cyanocobalamin (Vitamin B-12) 1,000 mcg PO DAILY 05/12/19 02/19/20 History [Vitamin B-12] Desvenlafaxine Succinate [Pristiq] 50 mg PO DAILY 05/12/19 02/19/20 History Fexofenadine HCl [Michelle Allergy] 180 mg PO DAILY 05/12/19 02/19/20 History Fluticasone Nasal [place] [Flonase 2 spr EA NOSTRIL HS 05/12/19 02/19/20 History Nasal [place]] Montelukast [Singulair] 10 mg PO HS 05/12/19 02/19/20 History [place]-3 Fatty Acids [[place]-3] 1,000 mg PO DAILY 05/12/19 02/19/20 History QUEtiapine [SEROquel] 25 mg PO HS 05/12/19 02/19/20 History Tamsulosin HCl [Flomax] 0.4 mg PO HS 05/12/19 02/19/20 History Vitamin E (Dl,Tocopheryl Acet) 400 unit PO HS 05/12/19 02/19/20 History [Vitamin E] lamoTRIgine [LaMICtal] 200 mg PO DAILY 05/12/19 02/19/20 History Acetaminophen Tab [Tylenol] 1,000 mg PO Q6HR PRN tab 06/01/19 02/19/20 Rx Albuterol Sulfate [Ventolin HFA] 1 - 2 puff INHALATION Q4H PRN 02/19/20 02/19/20 History Aspirin EC [Ecotrin Low Dose] 81 mg PO DAILY 02/19/20 02/19/20 History Atorvastatin [Lipitor] 80 mg PO DAILY 02/19/20 02/19/20 History Famotidine 20 mg PO HS 02/19/20 02/19/20 History Gabapentin 600 mg PO TID 02/19/20 02/19/20 History Lansoprazole [Prevacid] 30 mg PO W/BRKFST 02/19/20 02/19/20 History Metoprolol Tartrate [Lopressor] 25 mg PO DAILY 02/19/20 02/19/20 History amLODIPine [Norvasc] 5 mg PO DAILY 02/19/20 02/19/20 History Allergies Allergy/AdvReac Type Severity Reaction Status Date / Time No Known Allergies Allergy Verified 02/19/20 08:46 Surgical - Exam Vital Signs Temp Pulse Resp BP Pulse Ox 98.0 F 80 18 158/89 96 02/19/20 07:06 02/19/20 07:06 02/19/20 07:06 02/19/20 07:06 02/19/20 07:06 - General well developed, well nourished, no distress - Eyes PERRL - ENT normal pinna - Neck no masses - Respiratory normal expansion - Cardiovascular Rhythm: regular - Abdomen Mild right upper quadrant pain Abdomen: soft Results - Labs 02/18/20 23:45 02/18/20 23:45 Abnormal Lab Results - Last 24 Hours (Table) 02/18/20 02/18/20 02/18/20 Range/Units 23:45 23:45 23:47 WBC 11.8 H (3.8-10.6) k/uL Neutrophils # 9.3 H (1.3-7.7) k/uL Glucose 131 H (74-99) mg/dL Total Bilirubin 1.8 H (0.2-1.3) mg/dL AST 126 H (17-59) U/L ALT 92 H (4-49) U/L Alkaline Phosphatase 138 H (38-126) U/L Urine Protein 1+ H (Negative) Urine Mucus Rare H (None) /hpf Diabetes panel 02/18/20 Range/Units 23:45 Sodium 139 (137-145) mmol/L Potassium 4.4 (3.5-5.1) mmol/L Chloride 103 (98-107) mmol/L Carbon Dioxide 24 (22-30) mmol/L BUN 19 (9-20) mg/dL Creatinine 0.90 (0.66-1.25) mg/dL Glucose 131 H (74-99) mg/dL Calcium 10.0 (8.4-10.2) mg/dL AST 126 H (17-59) U/L ALT 92 H (4-49) U/L Alkaline Phosphatase 138 H (38-126) U/L Total Protein 7.9 (6.3-8.2) g/dL Albumin 4.7 (3.5-5.0) g/dL Calcium panel 02/18/20 Range/Units 23:45 Calcium 10.0 (8.4-10.2) mg/dL Phosphorus 3.8 (2.5-4.5) mg/dL Albumin 4.7 (3.5-5.0) g/dL Pituitary panel 02/18/20 Range/Units 23:45 Sodium 139 (137-145) mmol/L Potassium 4.4 (3.5-5.1) mmol/L Chloride 103 (98-107) mmol/L Carbon Dioxide 24 (22-30) mmol/L BUN 19 (9-20) mg/dL Creatinine 0.90 (0.66-1.25) mg/dL Glucose 131 H (74-99) mg/dL Calcium 10.0 (8.4-10.2) mg/dL Adrenal panel 02/18/20 Range/Units 23:45 Sodium 139 (137-145) mmol/L Potassium 4.4 (3.5-5.1) mmol/L Chloride 103 (98-107) mmol/L Carbon Dioxide 24 (22-30) mmol/L BUN 19 (9-20) mg/dL Creatinine 0.90 (0.66-1.25) mg/dL Glucose 131 H (74-99) mg/dL Calcium 10.0 (8.4-10.2) mg/dL Total Bilirubin 1.8 H (0.2-1.3) mg/dL AST 126 H (17-59) U/L ALT 92 H (4-49) U/L Alkaline Phosphatase 138 H (38-126) U/L Total Protein 7.9 (6.3-8.2) g/dL Albumin 4.7 (3.5-5.0) g/dL - Imaging CT scan - abdomen: report reviewed (Inflammation around gallbladder.) Assessment and Plan Assessment: Acute cholecystitis. Patient will undergo laparoscopic cholecystectomy.
[2020-02-19] MEDS ORDERED: LACTATED RINGERS 1,000 ML IV ONE ×2 (16:17→17:35)
[2020-02-19] MEDS ORDERED: ONDANSETRON 4 MG/2 ML VIAL IVP ONE (16:22)
[2020-02-19] MEDS ORDERED: DEXAMETHASONE SOD PHOS (MDV) 100 MG/10 ML VIAL IVP ONE (16:23)
[2020-02-19] MEDS ORDERED: HEPARIN SODIUM,PORCINE 5,000 UNIT/ML 1 ML VIAL SQ ONE (17:05)
[2020-02-19] MEDS ORDERED: KETOROLAC 30 MG/ML 1 ML VIAL ONE (17:22)
[2020-02-19] MEDS ORDERED: NEOSTIGMINE 1 MG/ML 10 ML VIAL ONE (17:22)
[2020-02-19] MEDS ORDERED: fentaNYL (PF) 50 MCG/ML 2 ML AMP ONE (17:22)
[2020-02-19] MEDS ORDERED: GLYCOPYRROLATE 0.2 MG/ML 2 ML VIAL ONE (17:22)
[2020-02-19] MEDS ORDERED: METOPROLOL TARTRATE 5 MG/5 ML VIAL IVP ONE (17:22)
[2020-02-19] MEDS ORDERED: MIDAZOLAM 2 MG/2 ML VIAL ONE (17:22)
[2020-02-19] MEDS ORDERED: SUCCINYLCHOLINE CHLORIDE 100 MG/5 ML SYR IV ONE (17:22)
[2020-02-19] MEDS ORDERED: ROCURONIUM BROMIDE 10 MG/ML 5 ML VIAL IV ONE (17:22)
[2020-02-19] MEDS ORDERED: LIDOCAINE 1% INJ 10MG/ML (20 ML MDV) ONE (17:22)
[2020-02-19] MEDS ORDERED: PROPOFOL 10 MG/ML 20 ML VIAL IV ONE (17:22)
[2020-02-19] MEDS ORDERED: BUPIVACAIN-EPI 0.25%-1:200,000 30 ML VIAL SQ ONE (17:36)
[2020-02-19] MEDS ORDERED: ALBUTEROL NEBULIZED 2.5 MG/3 ML INHALATION PRN (17:40)
[2020-02-19] MEDS ORDERED: ACETAMINOPHEN TAB 500 MG TAB PO PRN (17:40)
--- NOTE | 2020-02-19 18:30 | P.OP ---
Date of Procedure: 02/19/20 Preoperative Diagnosis: Cholecystitis Postoperative Diagnosis: Cholecystitis Procedure(s) Performed: Laparoscopic cholecystectomy Anesthesia: VILMA Surgeon: Elmo Bermudez Estimated Blood Loss (ml): 10 Pathology: other (Gallbladder) Condition: stable Disposition: PACU Description of Procedure: The patient was placed on the operating table. The patient received a general endotracheal tube anesthesia. The patients abdomen was prepped and draped in the usual sterile fashion. Through an infraumbilical stab incision, the fascia of the anterior abdominal wall was grasped with a pair of Kochers and then the Veress needle was placed in the peritoneal cavity. Position of the Veress needle was confirmed with positive drop test. The abdomen was then insufflated. After adequate insufflation, the 10 mm trocar was placed in the peritoneal cavity. Following this the laparoscope was placed in the peritoneal cavity. The patient was placed in the head-up, right side up position and then a 5 mm trocar was placed in the right lateral and right subcostal position under direct visualization. A 8 mm trocar was placed in the epigastric position. The gallbladder was grasped in the fundus and infundibulum. Traction on the gallbladder was placed in the lateral and the cephalad positions. The triangle of Calot was visualized.. The cystic duct was bluntly dissected until the union of the cystic duct and common bile duct was seen. A critical view of safety was achieved. The cystic duct was then divided and sealed with the Harmonic scissors. A PDS Endoloop was then placed throughout the cystic duct stump. The cystic artery divided and sealed with the Harmonic scissors. The gallbladder was then removed from the liver bed using Harmonic scissors. The gallbladder was then extracted through the epigastric port site. Operative field was checked for any bleeding spots and Harmonic scissors was used to coagulate the liver bed. The abdomen was irrigated. The trocars were removed. The skin was closed using interrupted 3-0 Vicryl suture. Dermabond dressing were applied. The patient tolerated the procedure well.
--- NOTE | 2020-02-19 20:45 | P.CONS ---
History of Present Illness - Reason for Consult Consult date: 02/19/20 Medical management Requesting physician: Elmo Bermudez - Chief Complaint Abdominal pain - History of Present Illness Consultation: This is a pleasant 54-year-old patient of Dr. Greco. Chronic stable medical conditions include fibromyalgia, GERD, hypertension, hyperlipidemia, osteoarthritis, coronary bypass, obstructive sleep apnea uses CPAP. Patient lost his peripheral neuropathy right lower quadrant pain. Progressively gotten worse. Had associated nausea vomiting. No fever no chills. Patient remained in the right sided abdominal pain. Decided to come in. No relief. Computed tomography scan of the abdomen suggested acute cholecystitis as suggested by i nflammation of the gallbladder. Patient has been rather active. No cardiac pain no shortness of breath. Eyelid today patient underwent laparoscopic cholecystectomy. Postprocedure laying in bed. Pain is controlled. No nausea vomiting. Review of systems: GEN.: Tired EYES: None HEENT: None NECK: None RESPIRATORY: None CARDIOVASCULAR: None GASTROINTESTINAL: As above GENITOURINARY: None MUSCULOSKELETAL: None LYMPHATICS: None HEMATOLOGICAL: None PSYCHIATRY: None NEUROLOGICAL: None Past medical history to include: Fibromyalgia, GERD, hyperlipidemia, hypertension, osteoarthritis, obstructive sleep apnea uses CPAP, coronary artery disease with history of BiPAP, repetitive left detached retina bipolar Social history: Does not smoke to the or drink alcohol. . 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 EYES: Pupils equal. Conjunctiva normal. HEENT: External appearance of nose and ears normal, oral cavity grossly normal. NECK: JVD not raised; masses not palpable. HEART: First and second heart sounds are normal; no edema. LUNGS: Respiratory rate normal; clear to auscultation. ABDOMEN: Soft, some abdominal tenderness, no guarding or rigidity, laparoscopic incision oliver, liver spleen not palpable, no masses palpable. PSYCH: Alert and oriented x3; mood and affect normal. NEUROLOGICAL: Cranial nerves grossly intact; no facial asymmetry, power and sensation grossly intact. LYMPHATICS: No lymph nodes palpable in the axilla and neck INVESTIGATIONS, reviewed in the clinical context: White count 11.8 hemoglobin 15.9 potassium 4.4 creatinine 0.9 total bilirubin 1.8 AST 126 ALT 92 alkaline phosphatase 138 COVID-19 PCR-not detected Computed tomography scan of the abdomen-gallbladder inflammation Assessment: -Acute cholecystitis status post laparoscopic cholecystectomy -Chronic fibromyalgia -GERD -Hyperlipidemia -Essential hypertension -Primary osteoarthritis -Obstructive sleep apnea uses CPAP -Coronary artery disease with history of bypass last year -Morbid obesity BMI 42.3 Plan: Home medications resumed. Pain control per Dr. Bermudez. Patient's currently on ice chips. Patient got compression stockings antibiotic for DVT prophylaxis. Care was discussed with the patient question were answered. Thank you Dr. Bermudez - Past Medical History Past Medical History: Fibromyalgia, GERD/Reflux, Hyperlipidemia, Hypertension, Osteoarthritis (OA), Sleep Apnea/CPAP/BIPAP Additional Past Medical History / Comment(s): Coronary artery disease, obstructive sleep apnea, hypertension, hyperlipidemia, fibromyalgia, obesity with a BMI of 42.3, remote history of pancreatitis, the patient is a CPAP user History of Any Multi-Drug Resistant Organisms: None Reported Past Surgical History: Coronary Bypass/CABG, Heart Catheterization, Orthopedic Surgery Additional Past Surgical History / Comment(s): sinus surg. x4, repair left detached retina, achilles surg., recent heart cath. Past Anesthesia/Blood Transfusion Reactions: No Reported Reaction, Motion Sickness Past Psychological History: Anxiety, Bipolar, Depression Smoking Status: Never smoker Past Alcohol Use History: None Reported Past Drug Use History: None Reported - Past Family History Mother Family Medical History: Cancer Father Family Medical History: Cancer, Coronary Artery Disease (CAD), Myocardial Infarction ([place]) Additional Family Medical History / Comment(s): Father with myocardial infarction at 42 years old Medications and Allergies Home Medications Medication Instructions Recorded Confirmed Type Cholecalciferol (Vitamin D3) 5,000 unit PO DAILY 05/12/19 02/19/20 History [Vitamin D3] Cyanocobalamin (Vitamin B-12) 1,000 mcg PO DAILY 05/12/19 02/19/20 History [Vitamin B-12] Desvenlafaxine Succinate [Pristiq] 50 mg PO DAILY 05/12/19 02/19/20 History Fexofenadine HCl [Michelle Allergy] 180 mg PO DAILY 05/12/19 02/19/20 History Fluticasone Nasal [place] [Flonase 2 spr EA NOSTRIL HS 05/12/19 02/19/20 History Nasal [place]icity] Montelukast [Singulair] 10 mg PO HS 05/12/19 02/19/20 History [place]-3 Fatty Acids [[place]-3] 1,000 mg PO DAILY 05/12/19 02/19/20 History QUEtiapine [SEROquel] 25 mg PO HS 05/12/19 02/19/20 History Tamsulosin HCl [Flomax] 0.4 mg PO HS 05/12/19 02/19/20 History Vitamin E (Dl,Tocopheryl Acet) 400 unit PO HS 05/12/19 02/19/20 History [Vitamin E] lamoTRIgine [LaMICtal] 200 mg PO DAILY 05/12/19 02/19/20 History Acetaminophen Tab [Tylenol] 1,000 mg PO Q6HR PRN tab 06/01/19 02/19/20 Rx Albuterol Sulfate [Ventolin HFA] 1 - 2 puff INHALATION RT-Q4H PRN 02/19/20 02/19/20 History Aspirin EC [Ecotrin Low Dose] 81 mg PO DAILY 02/19/20 02/19/20 History Atorvastatin [Lipitor] 80 mg PO DAILY 02/19/20 02/19/20 History Famotidine 20 mg PO HS 02/19/20 02/19/20 History Gabapentin 600 mg PO TID 02/19/20 02/19/20 History Lansoprazole [Prevacid] 30 mg PO W/BRKFST 02/19/20 02/19/20 History Metoprolol Tartrate [Lopressor] 25 mg PO DAILY 02/19/20 02/19/20 History amLODIPine [Norvasc] 5 mg PO DAILY 02/19/20 02/19/20 History Allergies Allergy/AdvReac Type Severity Reaction Status Date / Time No Known Allergies Allergy Verified 02/19/20 08:46 Physical Exam Vitals: Vital Signs Temp Pulse Pulse Resp BP Pulse Ox 02/19/20 20:00 16 02/19/20 19:21 77 16 166/87 96 02/19/20 19:08 76 16 169/85 99 02/19/20 18:53 76 16 165/95 98 02/19/20 18:38 97.3 F L 80 16 169/80 98 02/19/20 16:21 98.2 F 73 18 156/85 96 02/19/20 15:00 98.2 F 81 18 142/85 95 02/19/20 07:06 98.0 F 80 18 158/89 96 Intake and Output 02/19/20 02/19/20 02/19/20 06:59 14:59 22:59 Intake Total 1350 Output Total 5 Balance 1345 Intake: IV 1350 Output: Estimated Blood Loss 5 Other: # Voids 2 Weight 122.47 kg Results CBC & Chem 7: 02/18/20 23:45 02/18/20 23:45 Labs: Abnormal Lab Results - Last 24 Hours (Table) 02/18/20 02/18/20 02/18/20 Range/Units 23:45 23:45 23:47 WBC 11.8 H (3.8-10.6) k/uL Neutrophils # 9.3 H (1.3-7.7) k/uL Glucose 131 H (74-99) mg/dL Total Bilirubin 1.8 H (0.2-1.3) mg/dL AST 126 H (17-59) U/L ALT 92 H (4-49) U/L Alkaline Phosphatase 138 H (38-126) U/L Urine Protein 1+ H (Negative) Urine Mucus Rare H (None) /hpf
[2020-02-19] MEDS ORDERED: FAMOTIDINE 20 MG TAB PO SCH (21:00)
[2020-02-19] MEDS ORDERED: MONTELUKAST 10 MG TAB PO SCH (21:00)
[2020-02-19] MEDS ORDERED: TAMSULOSIN 0.4 MG CAP.ER.24H PO SCH (21:00)
[2020-02-19] MEDS ORDERED: QUEtiapine 25 MG TAB PO SCH (21:00)
[2020-02-19] MEDS ORDERED: VITAMIN E (DL,TOCOPHERYL ACET) 400 UNIT CAP PO SCH (21:00)
[2020-02-19] MEDS ORDERED: FLUTICASONE 50MCG/SPRAY NASAL 16GM EA NOSTRIL SCH (21:00)
[2020-02-19] MEDS: GABAPENTIN 300 MG CAP PO SCH (21:41)
[2020-02-19] MEDS: HYDROmorphone 1 MG/ML 1 ML SYRINGE IVP PRN (21:42)
[2020-02-20 03:07] VITALS: RESP 18
[2020-02-20] MEDS: HYDROmorphone 1 MG/ML 1 ML SYRINGE IVP PRN (03:35)
[2020-02-20] MEDS ORDERED: PANTOPRAZOLE 40 MG TABLET PO SCH (07:30)
[2020-02-20] MEDS: GABAPENTIN 300 MG CAP PO SCH (07:31)
[2020-02-20 07:45] VITALS: BP 151/81; PULSE 91; TEMP 98.3
[2020-02-20] MEDS ORDERED: CHOLECALCIFEROL 1,000 UNIT TAB PO SCH (09:00)
[2020-02-20] MEDS ORDERED: LORATADINE 10 MG TAB PO SCH (09:00)
[2020-02-20] MEDS ORDERED: ASPIRIN 81 MG PO SCH (09:00)
[2020-02-20] MEDS ORDERED: amLODIPine 5 MG TAB PO SCH (09:00)
[2020-02-20] MEDS ORDERED: ATORVASTATIN 80 MG TAB PO SCH (09:00)
[2020-02-20] MEDS ORDERED: NON FORMULARY DRUG (Omega-3 Fatty Acids [Omega-3] 1,000 MG) PO SCH (09:00)
[2020-02-20] MEDS ORDERED: DESVENLAFAXINE SUCCINATE 50 MG TAB.ER.24H PO SCH (09:00)
[2020-02-20] MEDS ORDERED: CYANOCOBALAMIN 500 MCG TAB PO SCH (09:00)
[2020-02-20] MEDS ORDERED: lamoTRIgine 100 MG TAB PO SCH (09:00)
[2020-02-20] MEDS ORDERED: METOPROLOL TARTRATE 25 MG TAB PO SCH (09:00)
--- NOTE | 2020-02-20 12:14 | P.DS ---
Providers Date of admission: 02/19/20 03:30 Expected date of discharge: 02/20/20 Attending physician: Elmo Bermudez Consults: 02/19/20 11:20 Consult Physician Routine Consulting Provider: Faraz Sorto Consult Reason/Comments: Medical management Do you want consulting provider notified?: Yes Placement Type Exists?: Yes Primary care physician: [facility] Course: This a 54-year-old male who underwent laparoscopic cholecystectomy yesterday. Please see hospital chart for details. His postoperative stay was unremarkable. Procedures: Laparoscopic cholecystectomy Patient Condition at Discharge: Good Plan - Discharge Summary Discharge Rx Participant: No New Discharge Prescriptions: New Docusate [Colace] 100 mg PO BID #20 capsule HYDROcodone/APAP 5-325MG [[place] 5-325] 1 tab PO Q6HR PRN #10 tab PRN Reason: Pain No Action Fexofenadine HCl [Michelle Allergy] 180 mg PO DAILY QUEtiapine [SEROquel] 25 mg PO HS lamoTRIgine [LaMICtal] 200 mg PO DAILY Montelukast [Singulair] 10 mg PO HS Fluticasone Nasal [place] [Flonase Nasal [place]] 2 spr EA NOSTRIL HS Vitamin E (Dl,Tocopheryl Acet) [Vitamin E] 400 unit PO HS Tamsulosin HCl [Flomax] 0.4 mg PO HS [place]-3 Fatty Acids [[place]-3] 1,000 mg PO DAILY Desvenlafaxine Succinate [Pristiq] 50 mg PO DAILY Cyanocobalamin (Vitamin B-12) [Vitamin B-12] 1,000 mcg PO DAILY Cholecalciferol (Vitamin D3) [Vitamin D3] 5,000 unit PO DAILY Acetaminophen Tab [Tylenol] 1,000 mg PO Q6HR PRN tab PRN Reason: Fever And/ Or Pain Metoprolol Tartrate [Lopressor] 25 mg PO DAILY Albuterol Sulfate [Ventolin HFA] 1 - 2 puff INHALATION RT-Q4H PRN PRN Reason: Shortness Of Breath Lansoprazole [Prevacid] 30 mg PO W/BRKFST Gabapentin 600 mg PO TID Famotidine 20 mg PO HS Atorvastatin [Lipitor] 80 mg PO DAILY amLODIPine [Norvasc] 5 mg PO DAILY Aspirin EC [Ecotrin Low Dose] 81 mg PO DAILY Discharge Medication List Cholecalciferol (Vitamin D3) [Vitamin D3] 5,000 unit PO DAILY 05/12/19 [History] Cyanocobalamin (Vitamin B-12) [Vitamin B-12] 1,000 mcg PO DAILY 05/12/19 [History] Desvenlafaxine Succinate [Pristiq] 50 mg PO DAILY 05/12/19 [History] Fexofenadine HCl [Michelle Allergy] 180 mg PO DAILY 05/12/19 [History] Fluticasone Nasal [place] [Flonase Nasal [place]] 2 spr EA NOSTRIL HS 05/12/19 [History] Montelukast [Singulair] 10 mg PO HS 05/12/19 [History] [place]-3 Fatty Acids [[place]-3] 1,000 mg PO DAILY 05/12/19 [History] QUEtiapine [SEROquel] 25 mg PO HS 05/12/19 [History] Tamsulosin HCl [Flomax] 0.4 mg PO HS 05/12/19 [History] Vitamin E (Dl,Tocopheryl Acet) [Vitamin E] 400 unit PO HS 05/12/19 [History] lamoTRIgine [LaMICtal] 200 mg PO DAILY 05/12/19 [History] Acetaminophen Tab [Tylenol] 1,000 mg PO Q6HR PRN tab 06/01/19 [Rx] Albuterol Sulfate [Ventolin HFA] 1 - 2 puff INHALATION RT-Q4H PRN 02/19/20 [History] Aspirin EC [Ecotrin Low Dose] 81 mg PO DAILY 02/19/20 [History] Atorvastatin [Lipitor] 80 mg PO DAILY 02/19/20 [History] Famotidine 20 mg PO HS 02/19/20 [History] Gabapentin 600 mg PO TID 02/19/20 [History] Lansoprazole [Prevacid] 30 mg PO W/BRKFST 02/19/20 [History] Metoprolol Tartrate [Lopressor] 25 mg PO DAILY 02/19/20 [History] amLODIPine [Norvasc] 5 mg PO DAILY 02/19/20 [History] Docusate [Colace] 100 mg PO BID #20 capsule 02/20/20 [Rx] HYDROcodone/APAP 5-325MG [[place] 5-325] 1 tab PO Q6HR PRN #10 tab 02/20/20 [Rx] Follow up Appointment(s)/Referral(s): Jorge Alberto Greco MD [Primary Care Provider] - 1-2 days Elmo Bermudez MD [STAFF PHYSICIAN] - 1 Week Discharge Disposition: HOME SELF-CARE
--- NOTE | 2020-02-20 17:43 | P.PN ---
Progress Note - Text Progress Note Date: 02/20/20 - Chief Complaint Abdominal pain Consultation: This is a pleasant 54-year-old patient of Dr. Greco. Chronic stable medical conditions include fibromyalgia, GERD, hypertension, hyperlipidemia, osteoarthritis, coronary bypass, obstructive sleep apnea uses CPAP. Patient lost his peripheral neuropathy right lower quadrant pain. Progressively gotten worse. Had associated nausea vomiting. No fever no chills. Patient remained in the right sided abdominal pain. Decided to come in. No relief. Computed tomography scan of the abdomen suggested acute cholecystitis as suggested by inflammation of the gallbladder. Patient has been rather active. No cardiac pain no shortness of breath. underwent laparoscopic cholecystectomy. Today-feeling much better. Diet advanced. No nausea vomiting. Ambulating. Review of systems: Was done for constitutional, cardiovascular, GI, pulmonary. relevant finding as above Current medications reviewed in today's electronic records Physical examination: VITAL SIGNS: 38.3, 91, 18, 151/81, 93% on room air GENERAL: Sitting up in a chair, comfortable EYES: Pupils equal. Conjunctiva normal. HEENT: External appearance of nose and ears normal, oral cavity grossly normal. NECK: JVD not raised; masses not palpable. HEART: First and second heart sounds are normal; no edema. LUNGS: Respiratory rate normal; clear to auscultation. ABDOMEN: Soft, minimal abdominal tenderness, no guarding or rigidity, laparoscopic incision oliver, liver spleen not palpable, no masses palpable. PSYCH: Alert and oriented x3; mood and affect normal. INVESTIGATIONS, reviewed in the clinical context: White count 11.8 hemoglobin 15.9 potassium 4.4 creatinine 0.9 total bilirubin 1.8 AST 126 ALT 92 alkaline phosphatase 138 COVID-19 PCR-not detected Computed tomography scan of the abdomen-gallbladder inflammation Assessment: -Acute cholecystitis status post laparoscopic cholecystectomy -Chronic fibromyalgia -GERD -Hyperlipidemia -Essential hypertension -Primary osteoarthritis -Obstructive sleep apnea uses CPAP -Coronary artery disease with history of bypass last year -Morbid obesity BMI 42.3 Plan: Stable. Doing well. Follow with PCP upon discharge. Thank you Dr. Bermudez -
== END 2020-02-20 12:56 | disposition home or self-care (01) ==
LOC: EC 23:10 → 4SSUR 02-19 03:30 → EC 02-19 05:38
PROVIDERS: ADMIT Surgery; ATTEND Surgery
DX: K80.12 Calculus of gallbladder with acute and chronic cholecystitis without obstruction (principal); M79.7 Fibromyalgia; K21.9 Gastro-esophageal reflux disease without esophagitis; E78.5 Hyperlipidemia, unspecified; I10 Essential (primary) hypertension; M19.90 Unspecified osteoarthritis, unspecified site; G47.33 Obstructive sleep apnea (adult) (pediatric); Z99.89 Dependence on other enabling machines and devices; I25.10 Atherosclerotic heart disease of native coronary artery without angina pectoris; Z95.1 Presence of aortocoronary bypass graft; E66.01 Morbid (severe) obesity due to excess calories; Z68.41 Body mass index [BMI] 40.0-44.9, adult; F31.9 Bipolar disorder, unspecified; F41.9 Anxiety disorder, unspecified; Z11.59 Encounter for screening for other viral diseases; Z87.19 Personal history of other diseases of the digestive system; Z98.890 Other specified postprocedural states; Z87.898 Personal history of other specified conditions; Z86.69 Personal history of other diseases of the nervous system and sense organs; Z79.899 Other long term (current) drug therapy; Z79.82 Long term (current) use of aspirin; Z80.9 Family history of malignant neoplasm, unspecified; Z82.49 Family history of ischemic heart disease and other diseases of the circulatory system
CPT/HCPCS: 47562; 99285; 36415; 88304; 80053; 82150; 83690; 83735; 84100; 84484; 85025; 85610; 85730; 81001; 87635; 74177; G0378 ×2; J2250; J2270; J1644; J2710; J0690; J2405; J2001; J3010; J1885; J1170 ×2; J1100; J0330; J2704; C9113; Q9967

== ENCOUNTER → 2020-06-02 | Outpatient (CLI) | payer BC ==
[2020-06-02 08:53] LABS: Basophils # (A) 0.1 k/uL (0-0.2); Basophils % (A) 1 %; Eosinophils # (A) 0.3 k/uL (0-0.7); Eosinophils % (A) 5 %; HCT 44.8 % (39.0-53.0); HGB 14.7 gm/dL (13.0-17.5); Lymphocytes # (A) 2.1 k/uL (1.0-4.8); Lymphocytes % (A) 31 %; MCH 28.4 pg (25.0-35.0); MCHC 32.7 g/dL (31.0-37.0); MCV 86.9 fL (80.0-100.0); Mean Platelet Volume 7.3; Monocytes # (A) 0.6 k/uL (0-1.0); Monocytes % (A) 8 %; Neutrophils # (A) 3.7 k/uL (1.3-7.7); Neutrophils % (A) 53 %; Platelet Count 225 k/uL (150-450); RBC 5.15 m/uL (4.30-5.90); RDW 12.8 % (11.5-15.5)
[2020-06-02 18:14] LABS: African American GFR (CKD) 86.5 (60.0-200.0); Albumin 4.4 g/dL (3.80-4.90); Albumin/Globulin Ratio 2.2 (1.60-3.17); Anion Gap 8.2 mmol/L (4.00-12.00); BUN/Creat Ratio 18.18 Ratio (12.00-20.00); Calcium 9.6 mg/dL (8.7-10.3); Carbon Dioxide 25.8 mmol/L (21.6-31.8); LDL Cholesterol,Calculated 64.4 mg/dL (0.0-131.0); Non-African American GFR(CKD) 74.6 (60.0-200.0); Potassium 4.3 mmol/L (3.5-5.5); Total Bilirubin 0.8 mg/dL (0.2-1.2); Total Protein 6.4 g/dL (6.2-8.2); VLDL Calculation 25.6 mg/dL (5.00-40.00)
[2020-06-02 18:55] LABS: Hemoglobin A1C 5.5 % (4.0-6.0)
== END | disposition home or self-care (01) ==
LOC: LABWHC1 08:12
PROVIDERS: ATTEND Family Medicine
DX: I10 Essential (primary) hypertension (principal); E78.2 Mixed hyperlipidemia
CPT/HCPCS: 36415; 80053; 80061; 83036; 85025

== ENCOUNTER → 2020-12-24 | Outpatient (CLI) | payer BC ==
[2020-12-24 15:36] LABS: HGB 14.5 g/dL (13.0-17.0); MCH 29.4 pg (27.0-32.0); MCHC 33.7 g/dL (32.0-37.0); Mean Platelet Volume 10.1 fL (9.5-12.2); Platelet Count 256 X 10*3/uL (140-440); RBC 4.94 X 10*6/uL (4.40-5.60); RDW 12.4 % (11.5-14.5); WBC 6.11 X 10*3/uL (4.50-10.00)
[2020-12-24 18:32] LABS: African American GFR (CKD) 86.5 (60.0-200.0); Albumin 4.6 g/dL (3.80-4.90); Albumin/Globulin Ratio 2.42 (1.60-3.17); Anion Gap 10.8 mmol/L (4.00-12.00); Calcium 9.7 mg/dL (8.7-10.3); Carbon Dioxide 23.2 mmol/L (21.6-31.8); Chol/HDL Ratio 4.07; Globulin 1.9 g/dL (1.6-3.3); Non-African American GFR(CKD) 74.6 (60.0-200.0); Potassium 4.1 mmol/L (3.5-5.5); Total Protein 6.5 g/dL (6.2-8.2)
[2020-12-24 18:40] LABS: Prostate Specific Antigen 0.5 ng/mL (0.0-3.5)
== END | disposition home or self-care (01) ==
LOC: LABWHC1 10:12
PROVIDERS: ATTEND Family Medicine
DX: Z00.01 Encounter for general adult medical examination with abnormal findings (principal); F31.81 Bipolar II disorder
CPT/HCPCS: 36415; 80053; 80061; 80175; 84153; 84443; 84481; 85027

== ENCOUNTER → 2021-01-25 | Outpatient (CLI) | payer BC | END | disposition home or self-care (01) | LOC: LABWHC1 08:05 | PROVIDERS: ATTEND Family Medicine | DX: U07.1 COVID-19 (principal) | CPT/HCPCS: 36415; 86769 ==

== ENCOUNTER → 2021-02-25 | Outpatient (CLI) | payer BC ==
[2021-02-25 10:16] LABS: HCT 42.7 % (39.0-53.0); HGB 14.8 gm/dL (13.0-17.5); MCH 29.9 pg (25.0-35.0); MCHC 34.5 g/dL (31.0-37.0); MCV 86.5 fL (80.0-100.0); Mean Platelet Volume 6.9; Platelet Count 229 k/uL (150-450); RBC 4.94 m/uL (4.30-5.90); RDW 12.7 % (11.5-15.5); WBC 6.6 k/uL (3.8-10.6)
[2021-02-25 10:20] LABS: Appearance,Urine Clear (Clear); Bilirubin,Urine Negative (Negative); Blood,Urine Negative (Negative); Color,Urine Yellow; Glucose,Urine (UA) Negative (Negative); Ketones,Urine Negative (Negative); Leukocyte Esterase,Urine Negative (Negative); Nitrite,Urine Negative (Negative); Protein,Urine Trace (Negative); Specific Gravity,Urine 1.027 (1.001-1.035); Urobilinogen,Urine <2.0 mg/dL (<2.0)
[2021-02-25 10:28] LABS: INR 0.9 (<1.2); Partial Thromboplastin Time 24.6 sec (22.0-30.0); Prothrombin Time 10.1 sec (9.0-12.0)
[2021-02-25 10:51] LABS: Albumin 4.4 g/dL (3.5-5.0); Calcium 9.6 mg/dL (8.4-10.2); Potassium 4.3 mmol/L (3.5-5.1); Total Bilirubin 0.9 mg/dL (0.2-1.3)
== END | disposition home or self-care (01) ==
LOC: LABPAT 09:28
PROVIDERS: ATTEND Orthopaedic Surgery
DX: Z01.812 Encounter for preprocedural laboratory examination (principal); M16.12 Unilateral primary osteoarthritis, left hip
CPT/HCPCS: 36415; 80053; 81003; 85027; 85610; 85730; 86850; 86900; 86901; 87070

== ENCOUNTER 2021-03-07 05:31 | Day surgery (SDC) | payer BC ==
[2021-03-01 16:31] VITALS: BMI 43.0
[~2021-03-07 05:31] MED LIST changes: +ACETAMINOPHEN TAB 500 MG TAB PO PRN; -ALBUMIN HUMAN 25% 50 ML IV ONE; -ALBUMIN HUMAN 5% 500 ML IVPB ONE; -ASPIRIN 325 MG TAB PO ONE; -ATORVASTATIN 10 MG TAB PO ONE; -CALCIUM CHLORIDE 100 MG/ML 10 ML SYRINGE IV ONE; -CHLORHEXIDINE GLUCONATE 15 ML CUP MUCOUS MEM ONE; -CLEVIDIPINE BUTYRATE 25 MG in EMPTY BAG 1 BAG IV ONE; +DEXAMETHASONE SOD PHOSPHATE 4 MG/ML 1 ML VIAL IV ONE; -DILTIAZEM 125 MG in SODIUM CHLORIDE 0.9% 100 ML IV ONE; +GABAPENTIN 300 MG CAP PO PRN; -HEPARIN SODIUM 1,000 UN/ML (10ML VL) IV ONE; -HEPARIN SODIUM,PORCINE 5,000 UNIT in SODIUM CHLORIDE 0.9% 500 ML 500 ML IV ONE; -INSULIN REGULAR 100 UNIT in SODIUM CHLORIDE 0.9% 100 ML IV ONE; -LACTATED RINGERS 1,000 ML IV ONE; +LACTATED RINGERS 1,000 ML IV SCH; -MAGNESIUM SULFATE MG 500 MG/ML IV ONE; -MANNITOL 25% 12.5 GM/50 ML VIAL IV ONE; +MELOXICAM 7.5 MG TAB PO PRN; -METOPROLOL TARTRATE 12.5 MG TAB PO ONE; -NITROGLYCERIN-D5W PMX 25 MG/250 ML BTL IV ONE; -NOREPINEPHRINE 4 MG in SODIUM CHLORIDE 0.9% 250 ML IV ONE; +ONDANSETRON 4 MG/2 ML VIAL IVP ONE; -PAPAVERINE 360 MG in SODIUM CHLORIDE 0.9% 90 ML IV ONE; -PHENYLEPHRINE 10 MG/ML VIAL IV ONE; -PHENYLEPHRINE 40 MG in SODIUM CHLORIDE 0.9% 250 ML IV ONE; -PROPOFOL 1,000 MG/100 ML VIAL IV ONE; -PROTAMINE SULFATE 10 MG/ML 25 ML VIAL IV ONE; -PROTAMINE SULFATE 250 MG in EMPTY BAG 1 BAG IV ONE; -SODIUM BICARB 8.4% 50 ML SYR (1 MEQ/ML) IV ONE; -SODIUM CHLORIDE 0.9% 1,000 ML IV ONE; +TRANEXAMIC ACID 1,000 MG in SODIUM CHLORIDE 0.9% 100 ML IVPB PRN; -TRANEXAMIC ACID 2,000 MG in SODIUM CHLORIDE 0.9% 80 ML IV ONE; -ceFAZolin 1,000 MG in SODIUM CHLORIDE 0.9% IRRIGATIO 1,000 ML IRRIGATION ONE; -ceFAZolin 2,000 MG in SODIUM CHLORIDE 0.9% 30 ML IVPB ONE; +ceFAZolin 3 GM in SODIUM CHLORIDE 0.9% 100 ML IVPB PRN; -ceFAZolin 3 GM in SODIUM CHLORIDE 0.9% 30 ML IVPB ONE
[2021-03-07] MEDS ORDERED: ONDANSETRON 4 MG/2 ML VIAL ONE (06:27)
[2021-03-07] MEDS ORDERED: SCOPOLAMINE 1.5MG/72HR PATCH TRANSDERM ONE (06:38)
[2021-03-07] MEDS ORDERED: HEPARIN SODIUM,PORCINE 10,000 UNIT/ML 1 ML VIAL ONE (06:55)
[2021-03-07] MEDS ORDERED: SODIUM CHLORIDE 0.9% IRRIG 1,000 ML BTL IRRIGATION ONE (06:55)
[2021-03-07] MEDS ORDERED: MIDAZOLAM 2 MG/2 ML VIAL ONE (06:55)
[2021-03-07] MEDS ORDERED: SUCCINYLCHOLINE CHLORIDE VIAL 200 MG/10 ML VIAL IV ONE (06:55)
[2021-03-07] MEDS ORDERED: PROPOFOL 10 MG/ML 20 ML VIAL IV ONE (06:55)
[2021-03-07] MEDS ORDERED: SODIUM CHLORIDE 0.9% 100 ML BAG ONE (06:55)
[2021-03-07] MEDS ORDERED: fentaNYL (PF) 50 MCG/ML 2 ML AMP ONE (06:55)
[2021-03-07] MEDS ORDERED: ePHEDrine SULFATE/0.9% NACL/PF 50 MG/5 ML SYRINGE IV ONE (06:55)
[2021-03-07] MEDS ORDERED: TRANEXAMIC ACID 1,000 MG/10 ML VIAL ONE (06:55)
[2021-03-07] MEDS ORDERED: LIDOCAINE 1% INJ 10MG/ML (20 ML MDV) ONE (06:55)
[2021-03-07] MEDS ORDERED: HYDROmorphone (PF) 1 MG/ML ONE (06:55)
[2021-03-07] MEDS ORDERED: ceFAZolin 3,000 MG in SODIUM CHLORIDE 0.9% IRRIGATIO 3,000 ML IRRIGATION ONE (06:59)
[2021-03-07] MEDS: ROPIVACAINE/EPI/CLONIDINE/KET 50 ML SYRINGE MISCELLANE PRN ×2 (07:32→08:24)
[2021-03-07] MEDS ORDERED: LACTATED RINGERS 1,000 ML IV ONE (08:12)
--- NOTE | 2021-03-07 08:45 | P.OP ---
Date of Procedure: 03/07/21 Preoperative Diagnosis: Severe osteoarthritis left hip Postoperative Diagnosis: Severe osteoarthritis left hip Procedure(s) Performed: Left total hip arthroplasty direct anterior approach Implants: [employer] Polarstem standard size 1 [employer] R3, 3 hole hemispherical acetabular shell, 52 mm [employer] Reflection 6.5 mm cancellus screw, 20 mm 2 [employer] R3, XLPE 20 acetabular liner [employer] Oxinium femoral head 36 m, +0 All components were press-fit. The articulation is Oxinium on polyethylene. Anesthesia: GETA Surgeon: Demario Phillip Highway Maintenance Worker #1: Nury Morillo Estimated Blood Loss (ml): 350 (146 mL returned with Cell Saver) Pathology: other (Femoral head) Condition: stable Disposition: PACU Indications for Procedure: After failure of conservative treatment we discussed the surgical and nonsurgical treatment options at length. Patient wishes to proceed with a total hip arthroplasty with a direct anterior approach. Complications specific to this procedure were discussed at length, including but not limited to infection, leg length discrepancy, dislocation, nerve injury, and fracture. Covid-19 was also discussed at length with the patient, and they are aware of the current policies and procedures. The patient was given the option of delaying surgery, but they elect to proceed knowing these risks. Patient is aware of all these complications and informed consent was obtained Operative Findings: The operative findings are consistent with severe osteoarthritis of the left hip Description of Procedure: Patient was seen and evaluated in the preoperative area and the consent was reviewed. The operative site was marked with a skin marker. The patient was then brought to the operating room and given preoperative antibiotics intravenously. 1 g of Tranexamic acid was also given intravenously. A general anesthetic was administered by the anesthesia department. The patient was then placed on the [place] table with the bony prominences well-padded. The hip area was then prepped with a ChloraPrep solution and draped in the usual sterile fashion. A universal timeout was then performed, which confirmed the patient's name, surgical site, ALLERGIES, and procedure being performed on the consent. Next the incision site was located at 1 cm distal to the anterior superior iliac spine along the flexion crease of the hip. The skin and subcutaneous tissues were sharply incised. Incision was carefully dissected down to the fascia overlying the tensor fascia saranya muscle. This fascia was then incised in line with the incision. Care was taken to stay laterally in order to avoid injuring the lateral femoral cutaneous nerve. Next, using blunt finger dissection, the tensor fascia saranya muscle was dissected off its investing fascia. The muscle was then carefully retracted laterally with a cobra retractor over the lateral neck of the femur. Next, the circumflex vessels were identified and cauterized using the AquaMantis device. The anterior hip capsule was then exposed. The capsule was then opened and an inverted T fashion. Cobra retractors were then placed intracapsularly. The retractors were maintained intracapsular throughout the procedure. The proximal femur was then visualized. A small amount of traction was placed on the leg. The femoral neck was then osteotomized appropriate level above the lesser trochanter. A small wedge of bone was then removed from the remaining femoral head. Next, using a corkscrew the femoral head was removed from the acetabulum. On gross visual inspection, the femoral head had complete loss of articular cartilage and multiple periarticular osteophytes. The femoral head was then measured. Attention was then turned to the acetabulum. The acetabulum was exposed and any remaining labrum was excised. Sequential reaming of the acetabulum was performed using fluoroscopic guidance until there was a good bed of bleeding cancellus bone. When the appropriate size was reached, a trial was then placed. The position and fit of the trial was checked with fluoroscopy. The trial was then removed. Then, using fluoroscopic guidance, the final implant was impacted at 20 of anteversion and 40 of abduction, and fully seated in the acetabulum. 2 screws were then placed in the acetabulum. Again fluoroscopy was used to check position of the screws. Next, the liner was then impacted, with a 20 elevated liner located in the anterior superior quadrant. Component locking was confirmed. Attention was then directed to the femur. With the aid of the [place] table, the femur was externally rotated to approximately 130, extended, and adducted under the opposite leg. A side hook was then placed under the proximal femur, and the side hook elevator was used to elevate the proximal femur while releasing the capsule. Retractors were then placed. A capsular release was performed, as well as a release of the conjoined tendon, which afforded excellent visualization of the proximal femur. Next, a box osteotome was used to lateralize the proximal femur. A hand tennis ball coverer was then used to locate the femoral canal. Sequential broaching was then performed with appropriate size which afforded excellent fixation in the proximal femur. A trial was then placed with appropriate head and neck, and the hip was gently reduced with the aid of the [place] table. Fluoroscopy was then used to check position of the components, as well as to ensure equal leg lengths. The hip was then gently dislocated and the trials were then removed. Final implants were then impacted and the hip was again reduced. Final fluoroscopic x-rays confirmed that the components were in anatomic position, as well as equal leg lengths. The hip was also taken through range of motion, and found to be stable. The hip was then copiously irrigated with antibiotic solution with pulsatile lavage. The hip was then irrigated with Irrisept solution. The soft tissues we re then injected with a ropivacaine solution, which consisted of 246.25 mg of ropivacaine, 0.5 mg of epinephrine, 30 mg of Toradol, 80 g of clonidine, and 48.45 mL of sterile water, for a total of 100 mL of fluid injected. A second dose of 1 g of Tranexamic acid was also given intravenously. Any blood collected by Cell Saver was then returned to the patient at this time. The fascia was then closed with 2-0 strata fix suture. The subcutaneous tissue was closed with 3-0 Vicryl. The subcuticular tissue was closed with 3-0 strata fix suture. The skin was then closed with Exofin skin glue. After the glue and dried, and Optifoam silver impregnated dressing was applied. The patient was then transferred to the recovery room in stable condition. The pastry assistant CEDRICK Hicks was required due to the complexity of surgery, and the need for skilled surgical pathologist for positioning, draping, exposure, retraction, and closure of the wound.
--- NOTE | 2021-03-07 08:51 | FL ---
EXAMINATION TYPE: FL guidance operating room, XR Hip Limited LT DATE OF EXAM: 03/07/2021 CLINICAL HISTORY: Left hip pain and osteoarthritis. TECHNIQUE: Fluoroscopy. Intraoperative limited views left hip. COMPARISON: None. FINDINGS: Fluoroscopic guidance was provided during left hip replacement procedure performed by Dr. Phillip. A total of 16 seconds of fluoroscopic time was utilized during the procedure and two spot images was acquired. Intraoperative images obtained show metallic hardware from total left hip arthroplasty satisfactory i n position on frontal projection. IMPRESSION: As Above.
[2021-03-07 08:55] VITALS: TEMP 99
[2021-03-07] MEDS ORDERED: KETOROLAC 15 MG/ML 1 ML VIAL IVP ONE (09:03)
[2021-03-07] MEDS: HYDROmorphone 0.5 MG/0.5 ML SYRINGE IVP PRN ×3 (09:03→09:15)
[2021-03-07] MEDS ORDERED: HYDROmorphone 1 MG/ML 1 ML SYRINGE IVP PRN (09:04)
[2021-03-07] MEDS ORDERED: NALOXONE 0.4 MG/ML 1 ML VIAL IV PRN (09:04)
[2021-03-07] MEDS ORDERED: HYDROmorphone 0.2 MG/1 ML SYRINGE IVP PRN (09:04)
[2021-03-07] MEDS ORDERED: ONDANSETRON 4 MG/2 ML VIAL IVP PRN (09:04)
[2021-03-07] MEDS ORDERED: HYDROmorphone 0.5 MG/0.5 ML SYRINGE IVP PRN (09:04)
[2021-03-07] MEDS ORDERED: HYDROcodone/APAP 7.5-325MG 1 EACH TAB PO PRN ×2 (09:06)
[2021-03-07 09:08] LABS: Glucose,Whole Blood 160 mg/dL (75-99)
[2021-03-07] MEDS ORDERED: SODIUM CHLORIDE 0.9% 1,000 ML IV SCH (09:15)
--- NOTE | 2021-03-07 09:16 | XR ---
EXAMINATION TYPE: XR Hip Limited LT DATE OF EXAM: 03/07/2021 CLINICAL HISTORY: Left hip pain and osteoarthritis. TECHNIQUE: Single AP portable view of left hip is obtained immediately postoperatively. COMPARISON: None. FINDINGS: Metallic hardware from left hip arthroplasty is seen and appears satisfactory in alignment and position. There is evidence of recent surgery with subcutaneous gas noted laterally. IMPRESSION: Metallic hardware from left hip arthroplasty is satisfactory in position.
[2021-03-07] MEDS ORDERED: HYDROcodone/APAP 7.5-325MG 1 EACH TAB PO ONE ×2 (10:30)
[2021-03-07] MEDS ORDERED: ceFAZolin 3 GM in SODIUM CHLORIDE 0.9% 100 ML IVPB SCH (12:00)
[2021-03-07 13:08] VITALS: BP 105/64; PULSE 99; RESP 18
== END 2021-03-07 13:50 | disposition home health service (06) ==
LOC: OR 05:31
PROVIDERS: ATTEND Orthopaedic Surgery
DX: M16.12 Unilateral primary osteoarthritis, left hip (principal); I25.10 Atherosclerotic heart disease of native coronary artery without angina pectoris; I11.9 Hypertensive heart disease without heart failure; E78.2 Mixed hyperlipidemia; G47.33 Obstructive sleep apnea (adult) (pediatric); E11.9 Type 2 diabetes mellitus without complications; N40.0 Benign prostatic hyperplasia without lower urinary tract symptoms; F31.9 Bipolar disorder, unspecified; Z86.16 Personal history of COVID-19; G89.4 Chronic pain syndrome; F41.9 Anxiety disorder, unspecified; K21.9 Gastro-esophageal reflux disease without esophagitis; H91.90 Unspecified hearing loss, unspecified ear; Z97.3 Presence of spectacles and contact lenses; Z95.1 Presence of aortocoronary bypass graft; Z90.49 Acquired absence of other specified parts of digestive tract; Z98.890 Other specified postprocedural states; Z82.49 Family history of ischemic heart disease and other diseases of the circulatory system; M50.30 Other cervical disc degeneration, unspecified cervical region; M51.36 Other intervertebral disc degeneration, lumbar region; Z83.42 Family history of familial hypercholesterolemia; Z82.61 Family history of arthritis; Z83.49 Family history of other endocrine, nutritional and metabolic diseases; Z81.1 Family history of alcohol abuse and dependence; Z79.1 Long term (current) use of non-steroidal anti-inflammatories (NSAID); Z79.82 Long term (current) use of aspirin; Z79.899 Other long term (current) drug therapy
CPT/HCPCS: 97110; 97161; 86891; 88300; 73501; 27130; C1776; J2250; J0330; J1644; J1100; J0690 ×2; J2405; J2001; J3010; J1170 ×2; J1885; J2704; 86850; 86900; 86901

== ENCOUNTER → 2021-07-22 | Outpatient (CLI) | payer BC ==
--- NOTE | 2021-07-22 21:35 | CT ---
EXAMINATION TYPE: CT sinus wo con DATE OF EXAM: 07/22/2021 COMPARISON: CT sinus 08/24/2017 HISTORY: chronic sinus congestion CT DLP: 385.7 mGycm. Automated Exposure Control for Dose Reduction was Utilized. TECHNIQUE: CT scan of the sinuses is performed without contrast, axial images are obtained, coronal r eformatted images are also reviewed. FINDINGS: The paranasal sinuses remarkable for minimal mucosal thickening within the maxillary sinus es, ethmoid air cells, frontal sinus. Post antrostomy changes are present bilaterally as on prior exa m. Small osteoma present on the right within the ethmoid air cells as on prior. Visualized portion of mastoid air cells show no abnormal opacification. The globes are intact bilate rally. IMPRESSION: The sinuses are remarkable for mild areas of mucosal thickening. Postop changes.
== END | disposition home or self-care (01) ==
LOC: RADCTMAIN 17:16
PROVIDERS: ATTEND Otolaryngology
DX: J34.89 Other specified disorders of nose and nasal sinuses (principal)
CPT/HCPCS: 70486

== ENCOUNTER → 2021-08-13 | Outpatient (CLI) | payer BC ==
[2021-08-13 20:00] LABS: African American GFR (CKD) 82.3 (60.0-200.0); Albumin 4.4 g/dL (3.8-4.9); Albumin/Globulin Ratio 1.95 (1.60-3.17); Anion Gap 14.1 mmol/L (4.00-12.00); BUN/Creat Ratio 16.32 Ratio (12.00-20.00); Blood Urea Nitrogen 18.6 mg/dL (9.0-27.0); Calcium 9.5 mg/dL (8.7-10.3); Carbon Dioxide 21.5 mmol/L (21.6-31.8); Chol/HDL Ratio 3.49 Ratio; Globulin 2.3 g/dL (1.6-3.3); HDL Cholesterol 33.2 mg/dL (40.00-60.00); LDL Cholesterol,Calculated 62.9 mg/dL (0.0-131.0); Potassium 4.1 mmol/L (3.5-5.5); Total Bilirubin 0.8 mg/dL (0.30-1.20); Total Protein 6.7 g/dL (6.2-8.2); Triglycerides 99.6 mg/dL (0.00-149.00); VLDL Calculation 19.92 mg/dL (5.00-40.00)
== END | disposition home or self-care (01) ==
LOC: LABWHC1 11:26
PROVIDERS: ATTEND Family Medicine
DX: I10 Essential (primary) hypertension (principal); E78.2 Mixed hyperlipidemia
CPT/HCPCS: 36415; 80053; 80061

== ENCOUNTER → 2021-09-02 | Outpatient (CLI) | payer BC | END | disposition home or self-care (01) | LOC: LABWHC1 08:33 | PROVIDERS: ATTEND Family Medicine | DX: E24.9 Cushing's syndrome, unspecified (principal) | CPT/HCPCS: 36415; 82533 ==

== ENCOUNTER → 2021-10-05 | Outpatient (CLI) | payer BC ==
[2021-10-05 10:53] LABS: HCT 42.9 % (39.6-50.0); HGB 14.3 g/dL (13.0-17.0); MCH 28.5 pg (27.0-32.0); MCHC 33.3 g/dL (32.0-37.0); MCV 85.6 fL (80.0-97.0); Mean Platelet Volume 9.7 fL (9.5-12.2); Platelet Count 247 X 10*3/uL (140-440); RBC 5.01 X 10*6/uL (4.40-5.60); WBC 7.09 X 10*3/uL (4.50-10.00)
[2021-10-05 11:53] LABS: African American GFR (CKD) 85.9 (60.0-200.0); BUN/Creat Ratio 17.55 Ratio (12.00-20.00); Blood Urea Nitrogen 19.3 mg/dL (9.0-27.0); Calcium 9.4 mg/dL (8.7-10.3); Carbon Dioxide 21.2 mmol/L (20.0-27.5); Chloride 107 mmol/L (96-109); Glucose 111 mg/dL (70-110); LDL Cholesterol,Calculated 67.5 mg/dL (0.0-131.0); Non-African American GFR(CKD) 74.1 (60.0-200.0); Potassium 4.2 mmol/L (3.5-5.5); Sodium 142 mmol/L (135-145); VLDL Calculation 19.56 mg/dL (5.00-40.00)
== END | disposition home or self-care (01) ==
LOC: LABWHC1 08:12
PROVIDERS: ATTEND Internal Medicine Cardiovascular Disease
DX: E78.2 Mixed hyperlipidemia (principal)
CPT/HCPCS: 36415; 80048; 80061; 83880; 84443; 85027

== ENCOUNTER → 2021-10-20 | Outpatient (CLI) | payer BC ==
[2021-10-20 12:09] LABS: % Iron Saturation 26.62 (15.00-50.00); African American GFR (CKD) 73.6 (60.0-200.0); Albumin 4.4 g/dL (3.8-4.9); Albumin/Globulin Ratio 1.99 (1.60-3.17); Anion Gap 11.7 mmol/L (10.00-18.00); BUN/Creat Ratio 17.2 Ratio (12.00-20.00); Blood Urea Nitrogen 21.5 mg/dL (9.0-27.0); Calcium 9.7 mg/dL (8.7-10.3); Carbon Dioxide 24.4 mmol/L (20.0-27.5); Ferritin 43.9 ng/mL (22.0-322.0); Folate, Serum 11.2 ng/mL (4.40-31.00); Globulin 2.2 g/dL (1.6-3.3); Non-African American GFR(CKD) 63.5 (60.0-200.0); Potassium 4.1 mmol/L (3.5-5.5); T4, Free (Free Thyroxine) 0.98 ng/dL (0.800-1.800); Total Bilirubin 0.7 mg/dL (0.30-1.20); Total Protein 6.6 g/dL (6.2-8.2)
== END | disposition home or self-care (01) ==
LOC: LABWHC1 07:46
PROVIDERS: ATTEND Psychiatry & Neurology Psychiatry
DX: F31.81 Bipolar II disorder (principal)
CPT/HCPCS: 36415; 80053; 82306; 82607; 82728; 82746; 83540; 83550; 84439; 84443; 84481

== ENCOUNTER → 2021-11-11 | Outpatient (CLI) | payer BC | END | disposition home or self-care (01) | LOC: LABPAT 07:25 | PROVIDERS: ATTEND Internal Medicine Cardiovascular Disease | DX: Z20.822 Contact with and (suspected) exposure to COVID-19 (principal) | CPT/HCPCS: U0003; C9803 ==

== ENCOUNTER 2021-11-14 05:59 | Day surgery (SDC) | payer BC ==
[2021-11-09 11:34] VITALS: BMI 45.4
[2021-11-14] MEDS ORDERED: ALPRAZolam 0.25 MG TAB PO PRN (06:06)
[2021-11-14] MEDS ORDERED: HEPARIN SODIUM,PORCINE 2,500 UNIT in SODIUM CHLORIDE 0.9% 250 ML IRRIGATION PRN (06:06)
[2021-11-14] MEDS ORDERED: HEPARIN SODIUM,PORCINE 10,000 UNIT in SODIUM CHLORIDE 0.9% 1,000 ML IRRIGATION PRN (06:06)
[2021-11-14] MEDS ORDERED: SODIUM CHLORIDE 0.9% 1,000 ML in EMPTY BAG 1 BAG IV SCH (06:06)
[2021-11-14] MEDS ORDERED: ALPRAZolam 0.5 MG TAB PO PRN (06:06)
[2021-11-14] MEDS ORDERED: ASPIRIN 325 MG TAB PO STA (06:06)
[2021-11-14] MEDS ORDERED: NITROGLYCERIN SL TABS 0.4 MG TAB SUBLINGUAL PRN (06:06)
[2021-11-14 06:39] LABS: Basophils # (A) 0.1 k/uL (0-0.2); Basophils % (A) 1 %; Eosinophils # (A) 0.4 k/uL (0-0.7); Eosinophils % (A) 5 %; HCT 42.5 % (39.0-53.0); HGB 14.4 gm/dL (13.0-17.5); Lymphocytes # (A) 2.7 k/uL (1.0-4.8); Lymphocytes % (A) 34 %; MCH 29.7 pg (25.0-35.0); MCV 87.3 fL (80.0-100.0); Mean Platelet Volume 7.2; Monocytes # (A) 0.6 k/uL (0-1.0); Monocytes % (A) 8 %; Neutrophils # (A) 3.9 k/uL (1.3-7.7); Neutrophils % (A) 50 %; Platelet Count 253 k/uL (150-450); RBC 4.87 m/uL (4.30-5.90); RDW 12.8 % (11.5-15.5); WBC 7.8 k/uL (3.8-10.6)
[2021-11-14 06:59] VITALS: RESP 16; TEMP 98.3
[2021-11-14] MEDS ORDERED: MIDAZOLAM 2 MG/2 ML VIAL IV ONE (07:31)
[2021-11-14] MEDS ORDERED: LIDOCAINE 1% INJ 10MG/ML (20 ML MDV) ONE (07:31)
[2021-11-14] MEDS ORDERED: LIDOCAINE 1% INJ 10MG/ML (20 ML MDV) SQ ONE (07:36)
[2021-11-14] MEDS ORDERED: IOPAMIDOL-370 125ML BTL INJ ONE (07:52)
[2021-11-14] MEDS ORDERED: IOPAMIDOL-370 100ML BTL INJ ONE (07:59)
--- NOTE | 2021-11-14 09:30 | CC ---
CARDIAC CATHETERIZATION REPORT INDICATION: Abnormal stress test in a patient with known CAD, status post prior bypass, and symptoms of shortness of breath. Patient had ischemia in involving the lateral wall. PROCEDURE NOTE: After obtaining informed consent, left heart catheterization and coronary angiogram were performed via the right femoral artery using standard Flynn catheters. Patient tolerated the procedure well without any obvious immediate complications. A femoral angiogram was performed and Angio-Seal will be deployed for hemostasis. Patient's creatinine is 1.3 and we are hydrating him. Patient received moderate conscious sedation. Total sedation time was 26 minutes. I used a right Flynn catheter to engage the STYLES. FINDINGS: HEMODYNAMICS: Left ventricular end-diastolic pressure is 15 mm. There is no significant gradient across the aortic valve. LEFT VENTRICULOGRAM: Left ventriculogram was not performed. ANGIOGRAPHIC DATA: [place] coronary arteries: 1. Left main coronary artery. Left main coronary artery appears mildly calcified but is free of significant stenosis. It divides into left anterior descending coronary artery and circumflex coronary artery. LAD is totally occluded in the proximal portion. Circumflex coronary artery is a large codominant vessel and is free of significant disease. Appears unchanged compared to the cardiac catheterization prior to bypass. 2. Right coronary artery is subtotally occluded in the proximal part. Selective injection of the bypass grafts: 1. Radial artery graft to PDA is patent. Proximal and distal anastomotic sites are free of disease. Body of the graft is free of disease. The [place] PDA appears free of significant stenosis. 2. STYLES to the LAD appears patent. Body of the graft is free of disease. Proximal and distal anastomotic sites are free of significant disease. [place] LAD is not especially well visualized, but I do not see any significant lesions. CONCLUSIONS: 1. Severe two-vessel coronary artery disease. 2. Circumflex coronary artery is free of disease. 3. Patent STYLES to LAD and radial artery graft to the PDA. PLAN: I reviewed angiographic data with the patient and told him that his stress test is a false-positive stress test and that he does not require revascularization. He will be managed with optimal medical therapy with weight loss, exercise and continued aggressive medications. MMODL / IJN: [id number] /
[2021-11-14 09:37] VITALS: BP 112/61; PULSE 71
[2021-11-14] MEDS ORDERED: RX INFO: IV CONTRAST WAS GIVEN 1 EACH MISC MISCELLANE PRN (10:29)
== END 2021-11-14 13:07 | disposition home or self-care (01) ==
LOC: CATHCVL 05:59
PROVIDERS: ATTEND Internal Medicine Cardiovascular Disease
DX: I25.10 Atherosclerotic heart disease of native coronary artery without angina pectoris (principal); I99.8 Other disorder of circulatory system; Z20.822 Contact with and (suspected) exposure to COVID-19
CPT/HCPCS: 93459; 85025; 87635; C1760; C1894; C1769; J2250; J2001; Q9967 ×2

== ENCOUNTER → 2022-03-25 | Outpatient (CLI) | payer BC ==
[2022-03-25 16:11] LABS: HCT 45.4 % (39.6-50.0); MCV 87.8 fL (80.0-97.0); Mean Platelet Volume 10.1 fL (9.5-12.2); NRBC Per 100 WBC 0 /100 WBCS (0.0-0.0); Platelet Count 256 X 10*3/uL (140-440); RBC 5.17 X 10*6/uL (4.40-5.60); RDW 12.8 % (11.5-14.5); WBC 6.73 X 10*3/uL (4.50-10.00)
[2022-03-25 17:17] LABS: ALT 29 U/L (10-49); AST 24 U/L (14-35); African American GFR (CKD) 73.8 (60.0-200.0); Albumin 4.6 g/dL (3.8-4.9); Albumin/Globulin Ratio 2.06 (1.60-3.17); Alkaline Phosphatase 95 U/L (41-126); BUN/Creat Ratio 13.39 Ratio (12.00-20.00); Blood Urea Nitrogen 16.6 mg/dL (9.0-27.0); Calcium 9.6 mg/dL (8.7-10.3); Chloride 106 mmol/L (96-109); Chol/HDL Ratio 3.63 Ratio; Globulin 2.2 g/dL (1.6-3.3); Glucose 99 mg/dL (70-110); LDL Cholesterol,Calculated 71.1 mg/dL (0.0-131.0); Non-African American GFR(CKD) 63.7 (60.0-200.0); Potassium 4.4 mmol/L (3.5-5.5); Sodium 142 mmol/L (135-145); Total Protein 6.9 g/dL (6.2-8.2); VLDL Calculation 14.44 mg/dL (5.00-40.00)
== END | disposition home or self-care (01) ==
LOC: LABWHC1 10:11
PROVIDERS: ATTEND Family Medicine
DX: Z00.01 Encounter for general adult medical examination with abnormal findings (principal)
CPT/HCPCS: 36415; 80053; 80061; 84153; 85027

== ENCOUNTER → 2022-09-09 | Outpatient (CLI) | payer BC ==
[2022-09-09 18:10] LABS: ALT 24 U/L (10-49); AST 16 U/L (14-35); African American GFR (CKD) 71.7 (60.0-200.0); Albumin 4.6 g/dL (3.8-4.9); Alkaline Phosphatase 95 U/L (41-126); Blood Urea Nitrogen 17.4 mg/dL (9.0-27.0); Calcium 9.4 mg/dL (8.7-10.3); Carbon Dioxide 24.3 mmol/L (20.0-27.5); Chloride 107 mmol/L (96-109); Chol/HDL Ratio 3.24 Ratio; Globulin 2.3 g/dL (1.6-3.3); Glucose 106 mg/dL (70-110); LDL Cholesterol,Calculated 73.1 mg/dL (0.0-131.0); Non-African American GFR(CKD) 61.9 (60.0-200.0); Potassium 4.3 mmol/L (3.5-5.5); Sodium 142 mmol/L (135-145); Total Protein 6.8 g/dL (6.2-8.2); VLDL Calculation 19.54 mg/dL (5.00-40.00)
== END | disposition home or self-care (01) ==
LOC: LABWHC1 09:24
PROVIDERS: ATTEND Family Medicine
DX: I25.84 Coronary atherosclerosis due to calcified coronary lesion (principal)
CPT/HCPCS: 36415; 80053; 80061

== ENCOUNTER → 2023-03-24 | Outpatient (CLI) | payer BC ==
[2023-03-25 08:10] LABS: HCT 47.4 % (39.6-50.0); HGB 15.5 d/dL (12.0-15.0); MCH 29.2 pg (27.0-32.0); MCHC 32.7 d/dL (32.0-37.0); MCV 89.3 FL (80.0-97.0); Mean Platelet Volume 10.1 FL (9.5-12.2); NRBC Per 100 WBC 0 X 10*3/uL (0.00-0.01); Platelet Count 256 X 10*3/uL (140-440); RBC 5.31 X 10*6/uL (4.40-5.60); WBC 6.85 X 10*3/uL (4.50-10.00)
[2023-03-25 08:33] LABS: ALT 27 U/L (10-49); AST 21 U/L (14-35); Albumin 4.5 d/dL (3.8-4.9); Albumin/Globulin Ratio 1.96 Ratio (1.60-3.17); Alkaline Phosphatase 95 U/L (41-126); Blood Urea Nitrogen 16.8 mg/dL (9.0-27.0); Calcium 9.7 mg/dL (8.7-10.3); Carbon Dioxide 25.4 mmol/L (21.6-31.8); Chloride 107 mmol/L (96-109); Chol/HDL Ratio 3.04 Ratio; Globulin 2.3 d/dL (1.6-3.3); Glucose 92 mg/dL (70-110); LDL Cholesterol,Calculated 52.3 mg/dL (0.0-131.0); Potassium 4.4 mmol/L (3.5-5.5); Sodium 143 mmol/L (135-145); Total Bilirubin 0.8 mg/dL (0.3-1.2); Total Protein 6.8 d/dL (6.2-8.2); VLDL Calculation 16.76 mg/dL (5.00-40.00)
== END | disposition home or self-care (01) ==
LOC: LABWHC1 10:10
PROVIDERS: ATTEND Family Medicine
DX: Z00.01 Encounter for general adult medical examination with abnormal findings (principal)
CPT/HCPCS: 36415; 80053; 80061; 84153; 85027